=== PATIENT | male | born 1955 | race Caucasian/White ===

== ENCOUNTER → 2025-03-31 | Outpatient (CLI) | payer MEDICARE, SELFPAY ==
--- NOTE | 2025-03-31 12:34 | MRI_ITS ---
PROCEDURE: SPINE CERVICAL (ROUTINE) 03/31/2025 REASON FOR EXAM: NECK PAIN TECHNIQUE: Multiplanar and multisequence images were obtained without IV contrast administration. FINDINGS: Vertebrae: Cervical vertebral body heights are preserved. Bone marrow signal is unremarkable. Alignment: Normal. No spondylolisthesis. Spinal Cord: Cervical spinal cord is of normal size and signal intensities. Short-segment syrinx measuring up to 4 mm in transverse thickness is noted between C5 and T1 (series 6 image 10). Structures at the foramen magnum are unremarkable. C2-3: Canal and foramina are patent. C3-4: Mild bilateral uncinate hypertrophy, without canal stenosis or neural foraminal narrowing. C4-5: Small disc osteophyte complex, uncinate hypertrophy and mild facet degenerative changes without significant canal stenosis. Neural foramina are patent. C5-6: [id number]-left disc osteophyte complex, small disc osteophyte complex and facet degenerative changes with mild canal stenosis. Moderate right and mild left neural foraminal narrowing. C6-7: Small disc osteophyte complex, left greater than right uncinate hypertrophy and facet degenerative changes. No significant canal stenosis. Moderate bilateral neural foraminal narrowing. C7-T1: Canal and foramina are patent. MRI/Spine Cervical (Routine) IMPRESSION: 1. Multilevel degenerative changes of the cervical spine, with up to mild canal stenosis and moderate neural foraminal narrowing at C5-C6. 2. 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 Reading Location: [facility]
== END | disposition home or self-care (01) ==
LOC: MRI 12:30
PROVIDERS: Referring Provider Orthopaedic Surgery Orthopaedic Surgery of the Spine; Visit Provider Orthopaedic Surgery Orthopaedic Surgery of the Spine
DX: M54.2 Cervicalgia (principal)
CPT/HCPCS: 72141

== ENCOUNTER → 2025-05-30 | Outpatient (CLI) | payer MEDICARE, SELFPAY ==
--- OUTSIDE RECORDS SUMMARY | 2025-05-30 07:00 | XMS RPT_ITS | CCD ---
Author Organization [facility] Care Team Providers Care Oven Unloader Name Role Phone LENARD ALVARADO, ROSA Trejo Primary Care Physician [phone] THIAGO LOPEZ DO Primary Care Physician Dr. Ruth Ann Jones Attending UnavailDr. Thiago Puentes Primary Care Unava ilable JOHN ABERNATHY, THIAGO E Primary Care Unavailable BRIDGET PAGAN Attending Unavailable LOPEZ DO, THIAGO E Primary Care Unavailable JOVANA LONG TERM-TYPE CUTTERKARLA Attending Unav irene LOBATO APRN-CARLTON RIVERA Attending Unavailabl e LOPEZ DO, THIAGO E Primary Care Unavailable LOPEZ DO, THIAGO E Primary Care Unavailable LOPEZ DO, THIAGO E Attending Unavailable LOPEZ DO, THIAGO E Primary Care Unavailable JOVANA LONG TERM-TYPE CUTTERKARLA Attending Unav elinorable JOHN ABERNATHY THIAGO Uriel Primary Care Unavailable FRANTZ JESSICA DO Attending Unavailable LOPEZ DO, THIAGO E Attending Unavailable LOPEZ DO, THIAGO E Primary Care Unavailable LOPEZ DO, THIAGO E Primary Care Unavailable FRANTZ JESSICA DO Attending Unavailable LOPEZ DO, THIAGO E Primary Care Unavailable ABEBA CORRAL Attending Unavailable LOPEZ DO, THIAGO E Primary Care Unavailable DR MORTEZA CARBONE MD Attending Unavailabl e LOPEZ DO, THIAGO E Attending Unavailable LOPEZ DO, THIAGO E Primary Care Unavailable HONEY LONG TERM - TYPE CUTTERRICH Attending U navailable THIAGO LOPEZ DO Primary Care Unavailable RUTH ANN JONES MD Attending Unavailable LOPEZ DO, THIAGO E Primary Care Unavailable LOPEZ DO, THIAGO E Primary Care Unavailable JOVANANAZARIO COLE-TYPE CUTTERKARLA Attending Unav RUTH ANN Ortega MD Attending Unavailable LOPEZ DO, THIAGO E Primary Care Unavailable LOPEZ DO, THIAGO E Primary Care Unavailable FRANTZ JESSICA DO Attending Unavailable LOPEZ DO, THIAGO E Primary Care Unavailable JOVANAKARLA HOLLIDAY Attending Unav ailable LOPEZ DO, THIAGO E Primary Care Unavailable KARLA EVANS Attending Unav ailable LOPEZ DO, THIAGO E Primary Care Unavailable DR DARCY SPEARS MD Attending Unavaila ble LOPEZ DO, THIAGO E Primary Care Unavailable LOPEZ DO, THIAGO E Attending Unavailable LOPEZ DO, THIAGO E Attending Unavailable LOEPZ DO, THIAGO E Primary Care Unavailable LOPEZ DO, THIAGO E Primary Care Unavailable LYNETTE ALVARADO, RUTH ANN Attending Unavailable KARLA EVANS Attending Unav ailable LOPEZ DO, THIAGO E Primary Care Unavailable LOPEZ DO, THIAGO E Primary Care Unavailable RUTH ANN JONES MD Attending Unavailable LOPEZ DO, THIAGO E Primary Care Unavailable KARLA WHALEY Attending Unavailable John, Thiago Primary Care Unavailable Thiago Lopez Referring Unavailable Navjot Del Valle Attending Unavailable John, Thiago Primary Care Unavailable Matt Klein Attending Unavailable Navjot Del Valle Referring Unavailable Thiago Lopez Primary Care Unavailable Navjot Del Valle Attending Unavailable Thiago Lopez Primary Care Unavailable Thiago Lopez Referring Unavailable Navjot Del Valle Attending Unavailable Allergies Allergy Classification Reported Allergen(s) Allergy Type Date of Onset Reaction(s) Facility (20 sources) Hmg-Coa Reductase Inhibitors (Statins); Translations: [statins] Drug allergy Measurement of liver enzyme (procedure) [facility] (2 sources) Metoprolol; Translations: [metoprolol] Drug Allergy Flushing (disorder) [facility] (8 sources) Ciprofloxacin; Translations: [ciprofloxacin] Drug Allergy Unknown (qualifier value) [facility] (1 source) [id number]-Nqm Reductase Inhibitor Drug allergy (disorder) [address] [place] [address] Repository Medications Current Medications Medication Drug Class(es) Dates Sig (Normalized) Sig (Original) acetaminophen 500 mg / diphenhydrAMINE hydrochloride 25 mg oral tablet (2 sources) Histamine-1 Receptor Antagonist Start: 01-26-2024 take 1 tablet by mouth once daily at bedtime Tylenol PM Extra Strength oral tablet Dose = 2 tab(s), Oral, qHS, 0 Refill(s) Start Date: 01/26/24 Status: Ordered Repeat number: 1 Acidophilus Probiotic Blend (2 sources) Start: 10-06-2020 take 1 capsule by mouth once daily Acidophilus Probiotic Blend Dose = 1 cap(s), Oral, qDay, 0 Refill(s) Start Date: 10/06/20 Status: Ordered ALPRAZolam 0.25 mg oral tablet (1 source) Benzodiazepine Start: 06-06-2023 End: 07-06-2023 Xanax 0.25 mg oral tablet Dose : 0.25 mg = 1 tab(s), Oral, qDay, X 30 day(s), # 16 tab(s), 0 Refill(s), 07/06/23 12:04:00 EDT, Pharmacy: [facility]/pharmacy #[id number], Generalized anxiety disorder with panic attacks Reactive hypertension, 177.8, cm, 06/06/23 11:33:00 EDT, Height, 89.3 Start Date: 06/06/23 Stop Date: 07/06/23 Status: Ordered aspirin 81 mg delayed release oral tablet (4 sources) Platelet Aggregation Inhibitor, Nonsteroidal Anti-inflammatory Drug Start: 09-01-2023 aspirin 81 mg oral delayed release tablet Dose : 81 mg = 1 tab(s), Oral, Daily, # 30 tab(s), 0 Refill(s), Pharmacy: [facility]/pharmacy #[id number], 177.8, cm, 09/01/23 10:30:00 EDT, Height, kg, 09/01/23 10:30:00 EDT, Dosing Weight Start Date: 09/01/23 Status: Ordered ciprofloxacin 250 mg oral tablet (2 sources) Quinolone Antimicrobial Start: 11-21-2021 End: 01-20-2022 Cipro 250 mg oral tablet Dose : 250 mg = 1 tab(s), Oral, qDay, # 30 tab(s), 1 Refill(s), 98.4 Start Date: 11/21/21 Stop Date: 01/20/22 Status: Ordered Co-Q10 50 mg oral capsule (7 sources) Start: 10-06-2020 Co-Q10 50 mg oral capsule Dose : 50 mg = 1 cap(s), Oral, Daily, 0 Refill(s) Start Date: 10/06/20 Status: Ordered CoQ10 100 mg oral capsule (3 sources) Start: 12-10-2024 CoQ10 100 mg oral capsule 0 Refill(s) Start Date: 12/10/24 Status: Ordered Repeat number: 1 CoQ10 300 mg oral capsule (5 sources) Start: 07-18-2023 CoQ10 300 mg oral capsule Dose : 300 mg = 1 cap(s), Oral, qDay, ok for softgel / gummy if capsule not available, # 100 cap(s), 0 Refill(s), Pharmacy: [facility]/pharmacy #[id number], Reactive hypertension, 177.7, cm, 07/18/23 11:45:00 EDT, Height, kg, 07/18/23 11:45:00 EDT, Dosing Weight Start Date: 07/18/23 Status: Ordered daridorexant 50 MG Oral Tablet [Quviviq] (3 sources) Start: 09-10-2023 Quviviq 50 mg oral tablet Dose : 50 mg = 1 tab(s), Oral, qDay, # 30 tab(s), 0 Refill(s), Insomnia Start Date: 09/10/23 Status: Ordered diphenhydrAMINE hydrochloride 25 mg oral capsule (1 source) Histamine-1 Receptor Antagonist Start: 01-26-2024 Benadryl 25 mg oral capsule Dose : 25 mg = 1 cap(s), Oral, q6hr, 0 Refill(s) Start Date: 01/26/24 Status: Ordered Drenamin (1 source) Start: 07-25-2023 Drenamin 0 Refill(s) Start Date: 07/25/23 Status: Ordered escitalopram 5 mg oral tablet (1 source) Serotonin Reuptake Inhibitor Start: 06-09-2023 escitalopram 5 mg oral tablet Dose : 5 mg = 1 tab(s), Oral, qDay, # 30 tab(s), 0 Refill(s) Start Date: 06/09/23 Status: Ordered 1 ml evolocumab 140 mg/ml auto-injector (10 sources) PCSK9 Inhibitor Start: 03-05-2024 inject 1 dose by subcutaneous injection every other week Repatha SureClick 140 mg/mL subcutaneous solution Dose : 140 mg =, Subcutaneous, q2wk, rotate injection sites, # 2 EA, 11 Refill(s), Pharmacy: [facility]/pharmacy #[id number], 175.26, cm, 01/26/24 7:37:00 EST, Height, kg, 03/05/24 11:04:00 EDT, Dosing Weight Start Date: 03/05/24 Status: Ordered Quantity: 2.0 Unit: EA Repeat number: 12 Start: 11-14-2023 inject 1 mg by subcu taneous injection every other week Repatha 140 mg/mL subcutaneous solution mg =, Subcutaneous, q2wk, 0 Refill(s) Start Date: 11/14/23 Status: Ordered Start: 09-05-2023 inject 1 dose by sub cutaneous injection every other week Repatha SureClick 140 mg/mL subcutaneous solution Dose : 140 mg =, Subcutaneous, q2wk, rotate injection sites, # 3 mL, 3 Refill(s), Pharmacy: [facility], 177.8, cm, 09/01/23 10:30:00 EDT, Height, kg, 09/01/23 10:30:00 EDT, Dosing Weight Start Date: 09/05/23 Status: Ordered Start: 09-01-2023 inject 1 dose by sub cutaneous injection every other week Repatha SureClick 140 mg/mL subcutaneous solution Dose : 140 mg =, Subcutaneous, q2wk, rotate injection sites, # 6 EA, 11 Refill(s), [id number], 177.8, cm, 09/01/23 10:30:00 EDT, Height, kg, 09/01/23 10:30:00 EDT, Dosing Weight Start Date: 09/01/23 Status: Ordered ezetimibe 10 mg oral tablet (14 sources) Dietary Cholesterol Absorption Inhibitor Start: 09-03-2024 Zetia 10 mg oral ta blet Dose : 10 mg = 1 tab(s), Oral, qDay, # 30 tab(s), 11 Refill(s), Pharmacy: [facility]/pharmacy #[id number], 175, cm, 09/03/24 11:02:00 EDT, Height, kg, 09/03/24 11:02:00 EDT, Dosing Weight Start Date: 09/03/24 Status: Ordered Quantity: 30.0 Unit: tab(s) Repeat number: 12 Start: 05-19-2023 Zetia 10 mg or al tablet Dose : 10 mg = 1 tab(s), Oral, qDay, # 90 tab(s), 1 Refill(s), [id number], 176, cm, 05/15/23 11:12:00 EDT, Height, kg, 05/15/23 11:12:00 EDT, Dosing Weight Start Date: 05/19/23 Status: Ordered Start: 10-11-2022 Zetia 10 mg or al tablet Dose : 10 mg = 1 tab(s), Oral, qDay, # 90 tab(s), 1 Refill(s), [id number], 177.8, cm, 10/11/22 10:54:00 EST, Height, kg, 10/11/22 10:54:00 EST, Dosing Weight Start Date: 10/11/22 Status: Ordered Start: 08-09-2021 Zetia 10 mg or al tablet Dose : 10 mg = 1 tab(s), Oral, qDay, # 90 tab(s), 3 Refill(s), [id number], 177, cm, 07/24/21 9:55:00 EDT, Height, kg, 07/24/21 9:55:00 EDT, Dosing Weight Start Date: 08/09/21 Status: Ordered Fish Oils (2 sources) Start: 10-06-2020 Fish Oil 1000 mg oral capsule Dose : 1,000 mg = 1 cap(s), Oral, qDay, # 90 cap(s), 0 Refill(s) Start Date: 10/06/20 Status: Ordered gabapentin 100 mg oral capsule (11 sources) Anti-epileptic Agent Start: 11-14-2023 gabapentin 100 mg or al capsule Dose : 200 mg = 2 cap(s), Oral, qHS, # 60 cap(s), 0 Refill(s), 83.3 Start Date: 11/14/23 Status: Ordered Start: 08-28-2023 End: 10-10-2023 gabapentin 300 mg oral capsu le Dose : 300 mg = 1 cap(s), Oral, BID, # 60 cap(s), 0 Refill(s), Pharmacy: [facility]/pharmacy #[id number], Neuropathy, 177.8, cm, 08/27/23 12:41:00 EDT, Height, 83.9, kg, 08/27/23 12:41:00 EDT, Dosing Weight Start Date: 08/28/23 Stop Date: 10/10/23 Status: Ordered Start: 07-18-2023 End: 08-17-2023 gabapentin 300 mg oral capsu le Dose : 300 mg = 1 cap(s), Oral, qHS, # 30 cap(s), 0 Refill(s), [id number], Pins and needles sensation, 177.7, cm, 07/18/23 11:45:00 EDT, Height, 86.9, kg, 07/18/23 11:45:00 EDT, Dosing Weight Start Date: 07/18/23 Stop Date: 08/17/23 Status: Ordered Start: 06-13-2023 gabapentin 100 mg oral capsule See Instructions, Take 1 capsule 2 hours before bedtime. May increase by 1 capsule every 3 days to MAX of 3 capsules nightly, # 90 cap(s), 0 Refill(s), [id number], Pins and needles sensation, 177.8, cm, 06/13/23 14:13:00 EDT, Height, 91.2 Start Date: 06/13/23 Status: Ordered hydrOXYzine hydrochloride 25 mg oral tablet (7 sources) Antihistamine Start: 07-23-2023 hydrOXYzine hy drochloride 25 mg oral tablet Dose : 25 mg = 1 tab(s), Oral, TID, PRN as needed for anxiety, in lieu of pcp absence, # 90 tab(s), 0 Refill(s), [id number], Generalized anxiety disorder with panic attacks Sleep apnea, 177.7, cm, 07/18/23 11:45:00 EDT, Height, kg, 07/18/23 11:45:00 EDT, Dosing Weight Start Date: 07/23/23 Status: Ordered Start: 06-13-2023 hydrOXYzine hy drochloride 25 mg oral tablet Dose : 25 mg = 1 tab(s), Oral, TID, PRN as needed for anxiety, # 30 tab(s), 2 Refill(s), Pharmacy: [facility]/pharmacy #[id number], Generalized anxiety disorder with panic attacks Sleep apnea, 177.8, cm, 06/13/23 14:13:00 EDT, Height, kg, 06/13/23 14:13:00 EDT, Dosing Weight Start Date: 06/13/23 Status: Ordered Start: 06-09-2023 hydrOXYzine hy drochloride 25 mg oral tablet Dose : 25 mg = 1 tab(s), Oral, TID, # 30 tab(s), 0 Refill(s), Pharmacy: [facility]/pharmacy #[id number], Generalized anxiety disorder with panic attacks Sleep apnea, 177.8, cm, 06/09/23 16:17:00 EDT, Height Start Date: 06/09/23 Status: Ordered Ibuprofen (9 sources) Nonsteroidal Anti-inflammatory Drug Start: 10-06-2020 take 1 tablet by mouth once daily at bedtime Advil PM Dose = 2 tab(s), Oral, qHS, 0 Refill(s) Start Date: 10/06/20 Status: Ordered irbesartan 150 mg oral tablet (9 sources) Angiotensin 2 Receptor Lawson Start: 09-09-2024 irbesartan 150 mg oral tablet Dose : 150 mg = 1 tab(s), Oral, qDay, -, # 100 tab(s), 1 Refill(s), [id number], 174.8, cm, 12/10/24 9:04:00 EST, Height, kg, 12/10/24 9:04:00 EST, Dosing Weight Start Date: 12/10/24 Status: Ordered Quantity: 100.0 Unit: tab(s) Repeat number: 2 Start: 03-09-2024 irbesartan 150 mg oral tablet Dose : 150 mg = 1 tab(s), Oral, qDay, -, # 100 tab(s), 1 Refill(s), [id number], 175.26, cm, 01/26/24 7:37:00 EST, Height, kg, 03/09/24 14:50:00 EDT, Dosing Weight Start Date: 03/09/24 Status: Ordered Start: 12-12-2023 End: 01-11-2024 irbesartan 150 mg oral table t Dose : 150 mg = 1 tab(s), Oral, qDay, -, # 90 tab(s), 1 Refill(s), Pharmacy: [facility]/pharmacy #[id number], 177.8, cm, 11/18/23 12:26:00 EST, Height, kg, 11/18/23 12:26:00 EST, Dosing Weight Start Date: 12/12/23 Stop Date: 01/11/24 Status: Ordered Start: 11-14-2023 irbesartan 75 mg oral tablet Dose : 75 mg = 1 tab(s), Oral, qDay, # 30 tab(s), 0 Refill(s) Start Date: 11/14/23 Status: Ordered losartan potassium 25 mg oral tablet (2 sources) Angiotensin 2 Receptor Lawson Start: 05-24-2023 losartan 25 mg oral tablet Dose : 25 mg = 1 tab(s), Oral, qDay, replace metoprolol, # 30 tab(s), 0 Refill(s), Pharmacy: [facility]/pharmacy #[id number], 177, cm, 05/24/23 8:25:00 EDT, Height Start Date: 05/24/23 Status: Ordered magnesium glycinate 100 mg oral tablet (4 sources) Start: 12-10-2024 magnesium glyc inate 100 mg oral capsule Dose : 200 mg = 2 cap(s), Oral, qDay, # 60 cap(s), 0 Refill(s) Start Date: 12/10/24 Status: Ordered Quantity: 60.0 Unit: cap(s) Repeat number: 1 Start: 09-10-2023 magnesium glyc inate 100 mg oral capsule Dose : 200 mg = 2 cap(s), Oral, qDay, # 60 cap(s), 0 Refill(s) Start Date: 09/10/23 Status: Ordered melatonin 3 mg oral tablet (4 sources) Start: 07-18-2023 melatonin 3 mg oral tablet Dose : 3 mg = 1 tab(s), Oral, qHS, 0 Refill(s), # 100 tab(s), 0 Refill(s), Pharmacy: [facility]/pharmacy #[id number], 177.7, cm, 07/18/23 11:45:00 EDT, Height, kg, 07/18/23 11:45:00 EDT, Dosing Weight Start Date: 07/18/23 Status: Ordered Start: 05-24-2023 melatonin 0 Re fill(s) Start Date: 05/24/23 Status: Ordered metoprolol tartrate 25 mg oral tablet (5 sources) beta-Adrenergic Lawson Start: 07-16-2023 Metopr olol Succinate ER 25 mg oral TABLET extended release Dose : 25 mg = 1 tab(s), Oral, qDay, # 90 tab(s), 0 Refill(s), Pharmacy: [facility]/pharmacy #[id number], 177.7, cm, 07/02/23 15:04:00 EDT, Height, kg, 07/10/23 11:32:00 EDT, Dosing Weight Start Date: 07/16/23 Status: Ordered Start: 06-30-2023 Metoprolol Suc cinate ER 25 mg oral TABLET extended release 30 EA, 0 Refill(s), TAKE 1 TABLET BY MOUTH EVERY DAY DO NOT CRUSH OR CHEW AFTER 7 DAYS MAY INCREASE TO 50MG, 0 Refill(s) Start Date: 06/30/23 Status: Ordered [facility] (11 sources) Start: 01-22-2022 Misc Medicatio n prostate ultra, 0 Refill(s), 96.2 Start Date: 01/22/22 Status: Ordered Start: 07-04-2021 Misc Medicatio n 0 Refill(s), 103.8 Start Date: 07/04/21 Status: Ordered Multi-Day Plus Minerals oral tablet (11 sources) Start: 10-06-2020 take 1 tablet by mouth once daily Multi-Day Plus Minerals oral tablet Dose = 1 tab(s), Oral, Daily, # 30 tab(s), 0 Refill(s) Start Date: 10/06/20 Status: Ordered nutritional supplement (3 sources) Start: 09-10-2023 nutritional supplement Prostate X, 0 Refill(s) Start Date: 09/10/23 Status: Ordered omeprazole 20 mg delayed release oral capsule (1 source) Proton Pump Inhibitor Start: 08-22-2023 omeprazole 20 mg oral delayed release capsule See Instructions, 20 mg Oral twice daily for 30 days, then once daily, # 90 cap(s), 0 Refill(s), Pharmacy: [facility]/pharmacy #[id number], 177.8, cm, 08/22/23 14:16:00 EDT, Height, kg, 08/22/23 14:16:00 EDT, Dosing Weight Start Date: 08/22/23 Status: Ordered One-A-Day Men 50 Plus (1 source) Start: 08-27-2023 take 1 tablet by mouth once daily One-A-Day Men 50 Plus Dose = 1 tab(s), Oral, qDay, 0 Refill(s) Start Date: 08/27/23 Status: Ordered Probiotic (7 sources) Start: 07-25-2023 Probiotic 0 Refill(s) Start Date: 07/25/23 Status: Ordered Start: 01-22-2022 Probiotic 0 Re fill(s) Start Date: 01/22/22 Status: Ordered sertraline 25 mg oral tablet (11 sources) Serotonin Reuptake Inhibitor Start: 01-20-2024 sertraline 25 mg ora l tablet Dose : 25 mg = 1 tab(s), Oral, qDay, # 90 tab(s), 0 Refill(s), Pharmacy: [facility]/pharmacy #[id number], 177.8, cm, 01/05/24 13:51:00 EST, Height, kg, 01/05/24 13:51:00 EST, Dosing Weight Start Date: 01/20/24 Status: Ordered Start: 11-14-2023 sertraline 50 mg oral tablet Dose : 25 mg = 0.5 tab(s), Oral, qDay, 0 Refill(s) Start Date: 11/14/23 Status: Ordered Start: 08-22-2023 sertraline 25 mg oral tablet Dose : 25 mg = 1 tab(s), Oral, qDay, TAKE 1 TABLET BY MOUTH EVERY DAY, # 90 tab(s), 0 Refill(s), Pharmacy: [facility]/pharmacy #[id number], 177.8, cm, 09/10/23 14:38:00 EDT, Height, kg, 09/10/23 14:38:00 EDT, Dosing Weight Start Date: 09/11/23 Status: Ordered sildenafil 25 mg oral tablet (11 sources) Phosphodiesterase 5 Inhibitor Start: 07-19-2023 sildenafil 25 mg oral tablet Dose : 25 mg = 1 tab(s), Oral, qDay, # 10 tab(s), 0 Refill(s), Pharmacy: [facility]/pharmacy #[id number], Erectile dysfunction, 177.7, cm, 07/18/23 11:45:00 EDT, Height, kg, 07/18/23 11:45:00 EDT, Dosing Weight Start Date: 07/19/23 Status: Ordered tamsulosin hydrochloride 0.4 mg oral capsule (15 sources) alpha-Adrenergic Lawson Start: 01-05-2025 tamsu losin 0.4 mg oral capsule Dose : 0.4 mg = 1 cap(s), Oral, qDay, # 90 cap(s), 3 Refill(s), [id number], BPH associated with nocturia, 177.8, cm, 01/05/25 14:03:00 EST, Height, kg, 01/05/25 14:03:00 EST, Dosing Weight Start Date: 01/05/25 Status: Ordered Quantity: 90.0 Unit: cap(s) Repeat number: 4 Indication: Benign prostatic hyperplasia with lower urinary tract symptoms Start: 01-05-2024 tamsulosin 0.4 mg oral capsule Dose : 0.4 mg = 1 cap(s), Oral, qDay, # 90 cap(s), 3 Refill(s), Pharmacy: [facility]/pharmacy #[id number], BPH (benign prostatic hyperplasia), 177.8, cm, 01/05/24 13:51:00 EST, Height, kg, 01/05/24 13:51:00 EST, Dosing Weight Start Date: 01/05/24 Status: Ordered Quantity: 90.0 Unit: cap(s) Repeat number: 4 Indication: Benign prostatic hyperplasia without lower urinary tract symptoms Start: 11-14-2023 tamsulosin 0.4 mg oral capsule Dose : 0.4 mg = 1 cap(s), Oral, qDay, # 30 cap(s), 0 Refill(s) Start Date: 11/14/23 Status: Ordered Start: 07-31-2023 Flomax 0.4 mg oral capsule Dose : 0.4 mg = 1 cap(s), Oral, qDay, # 90 cap(s), 3 Refill(s), Pharmacy: [facility]/pharmacy #[id number], BPH (benign prostatic hyperplasia), 177.8, cm, 07/31/23 9:13:00 EDT, Height, kg, 07/31/23 9:13:00 EDT, Dosing Weight Start Date: 07/31/23 Status: Ordered Start: 09-28-2021 tamsulosin 0.4 mg oral capsule 0 Refill(s) Start Date: 09/28/21 Status: Ordered traZODone hydrochloride 50 mg oral tablet (13 sources) Serotonin Reuptake Inhibitor Start: 01-20-2024 traZODone 50 mg oral tablet Dose : 50 mg = 1 tab(s), Oral, qHS, PRN Insomnia, # 30 tab(s), 0 Refill(s), [id number], 177.8, cm, 01/05/24 13:51:00 EST, Height, kg, 01/05/24 13:51:00 EST, Dosing Weight Start Date: 01/20/24 Status: Ordered Start: 09-23-2023 traZODone 100 mg oral tablet Dose : 50 mg = 0.5 tab(s), Oral, qHS, # 90 tab(s), 0 Refill(s) Start Date: 09/23/23 Status: Ordered Start: 09-15-2023 traZODone 50 m g oral tablet Dose : 100 mg = 2 tab(s), Oral, qHS, Call provider if dose adjustment (up or down) is needed., # 30 tab(s), 0 Refill(s), [id number], 177.8, cm, 09/10/23 14:38:00 EDT, Height, kg, 09/10/23 14:38:00 EDT, Dosing Weight Start Date: 09/15/23 Status: Ordered Start: 06-30-2023 traZODone 50 m g oral tablet Dose : 50 mg = 1 tab(s), Oral, qHS, PRN Sleep / Insomnia, # 90 tab(s), 0 Refill(s), [id number], Insomnia, 177.8, cm, 06/30/23 15:37:00 EDT, Height, kg, 06/30/23 15:37:00 EDT, Dosing Weight Start Date: 06/30/23 Status: Ordered ubidecarenone 50 mg oral capsule (4 sources) Start: 10-06-2020 Co-Q10 50 mg o ral capsule Dose : 50 mg = 1 cap(s), Oral, Daily, 0 Refill(s) Start Date: 10/06/20 Status: Ordered valsartan 80 mg oral tablet (4 sources) Angiotensin 2 Receptor Lawson Start: 08-27-2023 valsartan 80 mg oral tablet Dose : 80 mg = 1 tab(s), Oral, Daily, # 30 tab(s), 1 Refill(s), Pharmacy: [facility]/pharmacy #[id number], Reactive hypertension, 177.8, cm, 08/27/23 12:41:00 EDT, Height, kg, 08/27/23 12:41:00 EDT, Dosing Weight Start Date: 08/27/23 Status: Ordered Completed/Discontinued Medications Medication Drug Class(es) Dates Sig (Normalized) Sig (Original) LORazepam 0.5 mg oral tablet (10 sources) Benzodiazepine Start: 11-14-2023 LORazepam 0.5 mg oral tablet Dose : 0.5 mg = 1 tab(s), Oral, TID, PRN as needed for anxiety, 0 Refill(s), 83.1 Start Date: 11/14/23 Status: Ordered Start: 08-22-2023 End: 09-21-2023 LORazepam 0.5 mg oral tablet Dose : 0.5 mg = 1 tab(s), Oral, qDay, PRN as needed for anxiety, TAKE 1 TABLET BY MOUTH EVERY DAY NEEDED FOR ANXIETY. Cancel other Rx, X 30 day(s), # 24 tab(s), 0 Refill(s), 09/21/23 3:02:00 PM EDT, Pharmacy: [facility]/pharmacy #[id number], Anxiety, 177.8, cm, 08/22/23 14:16:00 EDT, Height, 84.8, kg, 08/22/23 14:16:00 EDT, Dosing Weight Start Date: 08/22/23 Stop Date: 09/21/23 Status: Ordered Start: 06-30-2023 LORazepam 0.5 mg oral tablet PLEASE SEE ATTACHED FOR DETAILED DIRECTIONS Start Date: 06/30/23 Status: Ordered Start: 05-27-2023 End: 06-06-2023 Ativan 0.5 mg oral tablet Do se : 0.5 mg = 1 tab(s), Oral, qHS, PRN as needed for anxiety, X 10 day(s), # 10 tab(s), 0 Refill(s), 06/06/23 4:50:00 EDT, Palpitations Anxiety, 92.7 Start Date: 05/27/23 Stop Date: 06/06/23 Status: Ordered One A Day Men's Complete (3 sources) Start: 12-10-2024 One A Day Men's Complete Oral, qDay, 0 Refill(s) Start Date: 12/10/24 Status: Ordered Repeat number: 1 sulfamethoxazole 400 mg / trimethoprim 80 mg oral tablet (6 sources) Dihydrofolate Reductase Inhibitor Antibacterial, Sulfonamide Antimicrobial Start: 07-31-2023 End: 08-07-2023 take 1 tablet by mouth twice daily Bactrim 400 mg-80 mg oral tablet Dose = 2 tab(s), Oral, BID, # 28 tab(s), 0 Refill(s), 87.3 Start Date: 07/31/23 Stop Date: 08/07/23 Status: Ordered Start: 07-21-2023 End: 07-29-2023 take 1 tablet by mouth twice daily Bactrim DS 800 mg-160 mg oral tablet Dose = 1 tab(s), Oral, BID, X 8 day(s), # 16 tab(s), 0 Refill(s), [id number], 177.7, cm, 07/18/23 11:45:00 EDT, Height, 86.9, kg, 07/18/23 11:45:00 EDT, Dosing Weight Start Date: 07/21/23 Stop Date: 07/29/23 Status: Ordered Start: 07-01-2023 End: 07-15-2023 take 1 tablet by mouth twice daily Bactrim DS 800 mg-160 mg oral tablet Dose = 1 tab(s), Oral, BID, X 14 day(s), # 28 tab(s), 0 Refill(s), Pharmacy: [facility]/pharmacy #[id number], 177.8, cm, 07/01/23 11:13:00 EDT, Height, 88.7, kg, 07/01/23 11:13:00 EDT, Dosing Weight Start Date: 07/01/23 Stop Date: 07/15/23 Status: Ordered Start: 01-01-2022 End: 01-15-2022 take 1 tablet by mouth twice daily Bactrim DS 800 mg-160 mg oral tablet Dose = 1 tab(s), Oral, BID, X 14 day(s), # 28 tab(s), 0 Refill(s), Pharmacy: [facility]/pharmacy #[id number], 177.8, cm, 01/01/22 10:05:00 EST, Height, 96.2, kg, 01/01/22 10:05:00 EST, Dosing Weight Start Date: 01/01/22 Stop Date: 01/15/22 Status: Ordered Start: 09-21-2021 End: 10-05-2021 take 1 tablet by mouth twice daily Bactrim DS 800 mg-160 mg oral tablet Dose = 1 tab(s), Oral, BID, X 14 day(s), # 28 tab(s), 0 Refill(s), Pharmacy: [facility]/pharmacy #[id number], 177, cm, 09/21/21 8:10:00 EDT, Height, 101.6, kg, 09/21/21 8:10:00 EDT, Dosing Weight Start Date: 09/21/21 Stop Date: 10/05/21 Status: Ordered Problems Active Problems Problem Classification Problem Date Documented Date Episodic/Chronic Anxiety disorders (20 sources) Anxiety disorder; Translations: [Anxiety disorder, unspecified] Onset: 05-27-20 Chronic Cardiac dysrhythmias (1 source) Palpitations; Translations: [Palpitations] Onset: 05-27-20 Episodic Conduction disorders (18 sources) Incomplete left bundle branch block 06-06-2023 Chronic Diabetes mellitus without complication (7 sources) Prediabetes 08-28-2023 Episodic Disorders of lipid metabolism (20 sources) Hyperlipidemia; Translations: [Familial hypercholesterolemia - heterozygous] Onset: 08-22-2012-21-2020 Chronic Essential hypertension (12 sources) Essential hypertension; Translations: [Essential (primary) hypertension] Onset: 05-27-2005-15-2023 Chronic Genitourinary symptoms and ill-defined conditions (20 sources) Urgent desire to urinate; Translations: [Dysuria] Onset: 11-14-2008-28-2023 Episodic Hemorrhoids (15 sources) Hemorrhoids 07-28-2023 Episodic Hyperplasia of prostate (8 sources) Benign prostatic hypertrophy without outflow obstruction 11-14-2023 Chronic Hypertension with complications and secondary hypertension (18 sources) Secondary hypertension 06-06-2023 Chronic Inflammatory conditions of male genital organs (20 sources) Chronic prostatitis 09-28-2021 Chronic Inflammatory conditions of male genital organs (16 sources) Prostatitis 01-02-2022 Episodic Other circulatory disease (2 sources) Elevated blood-pressure reading without diagnosis of hypertension 10-11-2022 Episodic Other gastrointestinal disorders (7 sources) Dysphagia 08-28-2023 Episodic Other gastrointestinal disorders (8 sources) Change in stool caliber 11-18-2023 Episodic Other male genital disorders (7 sources) History of prostatitis 12-19-2023 Episodic Other nervous system disorders (12 sources) Neuropathy 08-28-2023 Chronic Other nervous system disorders (18 sources) Pins and needles 06-06-2023 Episodic Other nervous system disorders (7 sources) Taste sense altered 08-28-2023 Episodic Other nutritional; endocrine; and metabolic disorders (9 sources) Overweight 08-28-2023 Episodic Other nutritional; endocrine; and metabolic disorders (9 sources) Overweight in adulthood with body mass index of 25 or more but less than 30 08-28-2023 Episodic Other screening for suspected conditions (not mental disorders or infectious disease) (12 sources) Computed tomography result abnormal 08-27-2023 Chronic Residual codes; unclassified (9 sources) Sleep apnea 12-21-2020 Chronic Residual codes; unclassified (1 source) Obstructive sleep apnea syndrome 06-13-2023 Chronic Residual codes; unclassified (17 sources) Insomnia 06-30-2023 Episodic Spondylosis; intervertebral disc disorders; other back problems (1 source) Cervicalgia; Translations: [Cervicalgia] Onset: 04-06-20 Episodic Unclassified (4 sources) Patient encounter status 10-11-2022 Unclassified (20 sources) Statin not tolerated (context-dependent category) 10-11-2022 Unclassified (1 source) Low back pain, unspecified; Translations: [Low back pain, unspecified] Onset: 03-17-20 Urinary tract infections (1 source) Escherichia coli urinary tract infection 11-18-2023 Episodic Past or Other Problems Problem Classification Problem Date Documented Da te Episodic/Chronic Abdominal pain (2 sources) Unspecified abdominal pain; Translations: [Unspecified abdominal pain] Onset: 07-26-2023 Episodic Results Test Name Value Interpretation Reference Range Facility Orthopedic Visit Reporton Orthopedic Visit Report [facility] [address] [place] [address] OFFICE VISIT Date of Service: 04/19/25 MR#: [id number] Acct: [id number] Name: RICH PERALES #: [id number] : 1955 Provider: Dr. Navjot Del Valle MD Age/Sex: 70/M Location: [facility] [place].MARIA GUADALUPE Status: Signed Intake Vital Signs 03/17/25 09:38 Height 5 ft 10 in Weight: 185 lb 8 oz BMI 26.6 Intake Visit Reasons: CERVICAL SPINE Chief Complaint: MRI Review Accompanied by: Self Is patient in pain?: Yes Pain scale (1-10): 2 Allergies Ldklesk-TLU-TmT Reductase Inhibitor Allergy (Verified 04/19/25 08:36) Liver eznymes were bad Medications ???Medication ???Instructions ???Recorded ???Confirmed ???Type evolocumab 140 mg/mL subcutaneous 140 mg subcut QWEEK 03/17/2504/01 History pen injector (Letty Henderson) irbesartan 150 mg tablet 150 mg PO QDAY 03/17/25 04/19/25 H istory tamsulosin 0.4 mg capsule 0.4 mg PO QDAY 03/17/25 04/19/25 H istory Have you fallen in the past year?: No PFSH Medical History High calcium levels High cholesterol Hypertension Surgical History History of tonsillectomy Family History Father History of heart bypass surgery Heart valve replaced Bladder cancer Family history of high cholesterol Mother Arthritis Social History Smoking Status: Former smoker Smokeless tobacco user: chewing tobacco alcohol intake: current alcohol intake frequency: a few times a week what type of physical activity do you participate in: walking and weight training HPI CERVICAL SPINE Details: This documentation accurately reflects the service provided and the decisions made by me, Dr. Navjot Del Valle MD 04/19/2533. Part of today???s visit was documented by Ame Grace [employer], acting as scribe. RICH PERALES is a 70 year old M here today for cervical spine MRI review. Patient rates his pain a 2/10 today. Patient denies any injections or treatment since the last visit. Patient states the cervical spine pain has stayed the same since the last visit. Has been more active lately and feels like the lumbar spine is bothering him more lately. He thinks the cervical spine range of motion is getting better. He thinks the shoulder pain is getting a little worse. Denies any recent falls or injuries. 03/17/2025: RICH PERALES is a 69 year old M here today for low back/neck pain. He states that he was previously seeing Dr. Pagan for his low back but his neck has been bothering him more lately. He has been having neck pain for about 2 years now. He gets intermittent pain in the neck that is sometime associated with how he moves his neck. He does get pain that radiates into his shoulders bilaterally. He denies having arm pain. He does get numbness and tingling in his hands but he does have carpal tunnel in both hands. He does have some balance problems but he notes that it isn't severe. he does have some weakness in his legs and is able to walk for 2-3 miles before he has to take a break. He states that walking actually makes his legs feel better. Patient is very active as goes to the gym regularly to use the exercise machines. Patient denies recent imaging of his cervical spine. He denies injection in the neck or low back. He denies PT for his cervical spine. Patient is also an avid [place]. Dr. Pagan was seeing him for his lumbar spine and has suspected stenosis. He did do physical therapy for his lumbar spine but doesn't feel that it was much help as he was doing the same things in the gym. It was recommended that he get an MRI of his lumbar spine that was denied due to no PT. He then did the PT and had the MRI and went to f/u with Dr. Pagan to go over the resuklts and that is when he found out he was no longer there. 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 Sometimes he takes an Aleve and the pain seems to wear off a little bit. The pain goes to the thigh and has lower pain in the calfs in both legs. There is more pain on the right side. Patient states that walking makes the pain feel better. When he sits for a long period of time he gets severe back pain. I examined the patient today. Patient states that he loses balance a little bit. He loses his balance when he just stands up. Patient denies any dizziness. Patient denies any diabetes. He does take cholesterol medication for cholesterol issues. Patient gets numbness and tingling in the legs. Patient states that he sometimes drops stuff from his hands. He was having trouble with writing and tying his shoes about 5 years ago, but it was getting better. Ortho Exam General General: Yes no acute distress (more content not included)... Normal [facility] Spine Cervical (Routine)on 0 03-31-2025 Spine Cervical (Routine) [facility] [address] [place] [address] Spine Cervical (Routine) MR#: [id number] Acct: [id number] Name: RICH PERALES Rep #: [id number] : 1955 M 69 From: Eliezer iqbal MD PCP: Dr. Thiago Lopez, DO Status: REG CLI Study: Spine Cervical (Routine) Date of Exam: Exam# [id number] Ordering Dr: Navjot Del Valle MD PROCEDURE: SPINE CERVICAL (ROUTINE) 03/31/2025 REASON FOR EXAM: NECK PAIN TECHNIQUE: Multiplanar and multisequence images were obtained without IV contrast administration. FINDINGS: Vertebrae: Cervical vertebral body heights are preserved. Bone marrow signal is unremarkable. Alignment: Normal. No spondylolisthesis. Spinal Cord: Cervical spinal cord is of normal size and signal intensities. Short-segment syrinx measuring up to 4 mm in transverse thickness is noted between C5 and T1 (series 6 image 10). Structures at the foramen magnum are unremarkable. C2-3: Canal and foramina are patent. C3-4: Mild bilateral uncinate hypertrophy, without canal stenosis or neural foraminal narrowing. C4-5: Small disc osteophyte complex, uncinate hypertrophy and mild facet degenerative changes without significant canal stenosis. Neural foramina are patent. C5-6: Ujzac-nqqpwqm-oxlm-left disc osteophyte complex, small disc osteophyte complex and facet degenerative changes with mild canal stenosis. Moderate right and mild left neural foraminal narrowing. C6-7: Small disc osteophyte complex, left greater than right uncinate hypertrophy and facet degenerative changes. No significant canal stenosis. Moderate bilateral neural foraminal narrowing. C7-T1: Canal and foramina are patent. MRI/Spine Cervical (Routine) IMPRESSION: 1. Multilevel degenerative changes of the cervical spine, with up to mild canal stenosis and moderate neural foraminal narrowing at C5-C6. 2. 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 Reading Location: [facility] CC: Dr. Navjot Del Valle MD; Dr. Thiago Lopez DO [employer] Senior Specialist: Signed Normal [facility] Cerv Spine 4 or 5 Viewson Cerv Spine 4 or 5 Views [facility] [address] [place] [address] Cerv Spine 4 or 5 Views MR#: [id number] Acct: [id number] Name: RICH PERALES Rep #: [id number] : 1955 M 69 From: Adolfo camargo MD PCP: Dr. Thiago Lopez DO Status: DEP AMB Study: Cerv Spine 4 or 5 Views Date of Exam: 03/17/25 Exam# [id number] Ordering Dr: Kristy Alston PROCEDURE: CERV SPINE 4 OR 5 VIEWS 03/17/2025 REASON FOR EXAM: CHRONIC PAIN TECHNIQUE: 4 views of the cervical spine were obtained including flexion-extension views. COMPARISON: None FINDINGS: Vertebrae: Spondylosis. disc spaces: Marked degree of disc space narrowing and spondylosis at the C5-C6 and C6-C7 levels. Facet joint osteoarthritis. Alignment: Minimal degree of anterior listhesis of C4 on C5 on the flexion movement. soft tissues: Unremarkable Other: RAD/Cerv Spine 4 or 5 Views IMPRESSION: MODERATE CERVICAL DEGENERATIVE CHANGES. Minimal anterior listhesis of C4 on C5 on the flexion maneuver. Disclaimer: Reading Location: [facility] CC: ABDIEL Doe; Dr. Thiago Lopez DO [employer] Senior Specialist: Signed Normal [facility] L/S Spine Min 4 Viewson 03-01 L/S Spine Min 4 Views [facility] [address] [place] [address] L/S Spine Min 4 Views MR#: [id number] Acct: [id number] Name: RICH PERALES Rep #: [id number] : 1955 M 69 From: Adolfo camargo MD PCP: Dr. Thiago Lopez DO Status: DEP AMB Study: L/S Spine Min 4 Views Date of Exam: 03/17/25 Exam# [id number] Ordering Dr: Navjot Del Valle MD PROCEDURE: L/S SPINE MIN 4 VIEWS 03/17/2025 REASON FOR EXAM: CHRONIC PAIN TECHNIQUE: AP lateral and flexion-extension views of the lumbar spine were obtained. COMPARISON: None FINDINGS: Curvature: Mild dextroscoliosis. Other findings: Marked degree of disc space narrowing and spondylosis at the L4-L5 level. Mild degree of disc space narrowing at the L3-L4 levels. Minimal anterior listhesis of L4 on L5 most likely secondary to facet joint osteoarthritis. This is accentuated on the flexion views. Other: Large amount of fecal material is seen in the colon. RAD/L/S Spine Min 4 Views IMPRESSION: Mild dextroscoliosis. Marked degree of disc space narrowing and spondylosis at the L4-L5 level with anterior listhesis of L4 on L5 worsening on the flexion views. Reading Location: [place] [address] CC: Dr. Navjot Del Valle MD; Dr. Thiago Lopez DO [employer] Senior Specialist: Signed Normal [facility] Orthopedic Visit Reporton Orthopedic Visit Report [facility] [facility] [address] [place] [address] OFFICE VISIT Date of Service: 03/17/25 MR#: [id number] Acct: [id number] Name: RICH PERALES Rep #: [id number] : 1955 Provider: Dr. Navjot Del Valle MD Age/Sex: 69/M Location: [facility] [place].MARIA GUADALUPE Status: Signed Intake Vital Signs 03/17/25 09:38 Height 5 ft 10 in Weight: 185 lb 8 oz BMI 26.6 Intake Visit Reasons: CERVICAL SPINE Allergies Zlxoxpe-LIQ-CyL Reductase Inhibitor Allergy (Verified 03/17/25 09:40) Liver eznymes were bad Medications ???Medication ???Instructions ???Recorded ???Confirmed ???Type evolocumab 140 mg/mL subcutaneous 140 mg subcut QWEEK 03/17/25/06/24 History pen injector (Letty Henderson) irbesartan 150 mg tablet 150 mg PO QDAY 03/17/25 03/17/25 H istory tamsulosin 0.4 mg capsule 0.4 mg PO QDAY 03/17/25 03/17/25 H istory Have you fallen in the past year?: No PFSH Medical History (Updated 03/17/25 @ 11:[address] Navjot Del Valle MD) High calcium levels High cholesterol Hypertension Surgical History (Updated 03/17/25 @ 09:58 by Yara Hankins) History of tonsillectomy Family History (Updated 03/17/25 @ 10:02 by Yara Hankins) Father History of heart bypass surgery Heart valve replaced Bladder cancer Family history of high cholesterol Mother Arthritis Social History (Updated 03/17/25 @ 09:58 by Yara Hankins) Smoking Status: Former smoker Smokeless tobacco user: chewing tobacco alcohol intake: current alcohol intake frequency: a few times a week what type of physical activity do you participate in: walking and weight training HPI CERVICAL SPINE Details: This documentation accurately reflects the service provided and the decisions made by me, Dr. Navjot Del Valle MD 03/17/25 0934. Part of today???s visit was documented by Hope SPARROW, acting as scribe. RICH PERALES is a 69 year old M here today for low back/neck pain. He states that he was previously seeing Dr. Pagan for his low back but his neck has been bothering him more lately. He has been having neck pain for about 2 years now. He gets intermittent pain in the neck that is sometime associated with how he moves his neck. He does get pain that radiates into his shoulders bilaterally. He denies having arm pain. He does get numbness and tingling in his hands but he does have carpal tunnel in both hands. He does have some balance problems but he notes that it isn't severe. he does have some weakness in his legs and is able to walk for 2-3 miles before he has to take a break. He states that walking actually makes his legs feel better. Patient is very active as goes to the gym regularly to use the exercise machines. Patient denies recent imaging of his cervical spine. He denies injection in the neck or low back. He denies PT for his cervical spine. Patient is also an avid [place]. Dr. Pagan was seeing him for his lumbar spine and has suspected stenosis. He did do physical therapy for his lumbar spine but doesn't feel that it was much help as he was doing the same things in the gym. It was recommended that he get an MRI of his lumbar spine that was denied due to no PT. He then did the PT and had the MRI and went to f/u with Dr. Pagan to go over the resuklts and that is when he found out he was no longer there. 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 Sometimes he takes an Aleve and the pain seems to wear off a little bit. The pain goes to the thigh and has lower pain in the calfs in both legs. There is more pain on the right side. Patient states that walking makes the pain feel better. When he sits for a long period of time he gets severe back pain. I examined the patient today. Patient states that he loses balance a little bit. He loses his balance when he just stands up. Patient denies any dizziness. Patient denies any diabetes. He does take cholesterol medication for cholesterol issues. Patient gets numbness and tingling in the legs. Patient states that he sometimes drops stuff from his hands. He was having trouble with writing and tying his shoes about 5 years ago, but it was getting better. Ortho Exam General General: Yes no acute distress Neurologic: Yes alert and Yes oriented x3 Spine SPINE TESTING CERVICAL THORACIC LUMBAR Musculoskeletal Strength 0=absent - 5=normal Details: Examination the back and neck show midline paraspinal tenderness. Neurologic evaluation of upper and lower extremity shows 5 x 5 power level shows normal sensations in all dermatomes. Greta's negative. Romberg's positive. Tandem gait shows mild imbalance. Left knee shows brisk reflexes. No clonus. Coding Level of Care Code Off vis,new,level 4 Diagnoses Other intervertebral disc degeneration, lumbar region with discogenic back pain and lower extr (more content not included)... Normal [facility] BD BONE DENSITY DEXA AXIAL S KELETONon 01-19-2025 BD BONE DENSITY DEXA AXIAL SKELETON ORIGINAL EXAMINATION: BONE DENSITOMETRY01/19/2025 11:43 am TECHNIQUE: Dual energy bone densitometry lumbar spine and left hip. COMPARISON: None HISTORY: Reason for Exam: Osteoporosis Screening FINDINGS: L1-L4: BMD= 1.228 g/cm2 T score= 1.2 Left femoral neck: BMD= 0.850 g/cm2 T score= -0.6 Left hip: BMD= 1.022 g/cm2 T score= -0.1 FRAX score: 10 year risk major osteoporotic fracture 4.9 %. 10 year risk hip fracture 0.6 %. The BHOF f/k/a NOF recommends that FDA-approved medical therapies be considered in post-menopausal women and men age >/= 50 years with a: * Hip or vertebral fracture, or * T-score of /= 20% for major osteoporotic fractures or * >/= 3% for hip fractures All treatment decisions require clinical judgement and consideration of individual patient factors, including patient preferences, comorbidities, previous drug use, risk factors not captured in the FRAX registered model (e.g., frailty, falls, vitamin D deficiency, increased bone turnover, interval significant decline in bone density) and possible under- or over-estimation of fracture risk by FRAX. IMPRESSION: Normal bone mineral density. Interpreted by: Ashley Chacon MD Preliminary Report By: Ashley Chacon MD Electronically signed By Ashley Chacon MD Dictated Date: 01/19/2025 12:10:27 PM Prelim Date: 01/19/2025 12:11:37 PM Sign Date: 01/19/2025 12:11:37 PM Ordering Provider: THIAGO Kam [facility] LABORATORYOrdered By: SYSTEM SYSTEM on 12-23-2024 Prostate specific Ag [Mass/Vol] 1.27 ng/mL Normal 0.00 - 4.00 ng/mL AO ADM SS PSAon 12-23-2024 Prostate Specific Antigen 1.27 ng/mL Normal 0.00-4.00 [facility] Comment on above: Performed By: #### P SA #### [address] [place] [place], [place] [address] LABORATORYOrdered By: Kiersten Fernandes on 12-09-2024 Cholesterol [Mass/Vol] 101 mg/dL Normal 0 - 200 mg/dL AO ADM SS Comment on above: Interpretive Data: C holesterol Reference Interval: Less than 200 Desirable 200-239 Borderline high risk 240 and above High risk Cholesterol in HDL [Mass/Vol] 50 mg/dL Normal 40 - 60 mg/dL AO ADM SS Cholesterol in LDL [Mass/Vol] 37 mg/dL Normal 0 - 130 mg/dL AO ADM SS Triglyceride [Mass/Vol] 68 mg/dL Normal 0 - 150 mg/dL AO ADM SS Comment on above: Interpretive Data: T riglyceride Reference Interval: Less than 150 Normal 150-199 Borderline high risk 200-499 High risk 500 or higher Very high risk LIPIDon 12-09-2024 Cholesterol [Mass/Vol] 101 mg/dL Normal 0-200 [facility] Comment on above: Result Comment: Chol esterol Reference Interval: Less than 200 Desirable 200-239 Borderline high risk 240 and above High risk Performed By: #### L IPID #### [address] [address] Cholesterol in HDL [Mass/Vol] 50 mg/dL Normal 40-60 [facility] Comment on above: Performed By: #### L IPID #### [address] [address] Cholesterol in LDL [Mass/Vol] 37 mg/dL Normal 0-130 [facility] Comment on above: Performed By: #### L IPID #### [address] [place], [place] [address] Triglyceride [Mass/Vol] 68 mg/dL Normal 0-150 [facility] Comment on above: Result Comment: Trig lyceride Reference Interval: Less than 150 Normal 150-199 Borderline high risk 200-499 High risk 500 or higher Very high risk Performed By: #### L IPID #### [address] [address] LIPIDon 07-01-2024 Cholesterol [Mass/Vol] 139 mg/dL Normal 0-200 [facility] Comment on above: Result Comment: Chol esterol Reference Interval: Less than 200 Desirable 200-239 Borderline high risk 240 and above High risk Performed By: #### L IPID #### [address] [address] Cholesterol in HDL [Mass/Vol] 52 mg/dL Normal 40-60 [facility] Comment on above: Performed By: #### L IPID #### [address] [address] Cholesterol in LDL [Mass/Vol] 74 mg/dL Normal 0-130 [facility] Comment on above: Performed By: #### L IPID #### [address] [address] Triglyceride [Mass/Vol] 67 mg/dL Normal 0-150 [facility] Comment on above: Result Comment: Trig lyceride Reference Interval: Less than 150 Normal 150-199 Borderline high risk 200-499 High risk 500 or higher Very high risk Performed By: #### L IPID #### [address] [address] Final Surgical Pathology Rep [facility] 01-28-2024 Final Surgical Pathology Report . Pathology Reports Accession: Collected Date/Time: Received Date/Time: Pathologist: [id number] 01/26/2024 08:47 EST 01/27/2024 08:48 MD RICH HICKEY Final Surgical Pathology Report DIAGNOSIS: A. COLON, HEPATIC FLEXURE, BIOPSY: - ULCERATED HYPERPLASTIC POLYP B. 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 Received in formalin labeled hepatic flexure polyp is 1 triangular filter labeled with the #1 containing 1 cuello-pink tissue fragment measuring 0.4 cm and fecal debris aggregating to 2.6 x 0.4 x 0.1 cm. TS-1 B. Received in formalin labeled rectal polyp is 1 cuello-pink tissue fragment measuring 0.8 x 0.6 cm. TS-1 Chary Waidman, [employer] Occupational Therapist/ Dr. Lucas Holland, Pathologist Dictated by Chary Willaimson MICROSCOPIC DESCRIPTION: The microscopic examination is performed, except in the case of Gross Only. Electronically Signed by Pathology Report verified by [facility] RICH QUIROS MD Sign out Date: 01/28/2024 09:08 Performing Lab: [facility], [address] [place] [address] Pathology Dept Disclaimer If ancillary studies were utilized, the following Laboratory Developed Test (LDT) disclaimer will apply: Under CLIA requirements, [facility] is qualified to perform high complexity testing. For all ancillary stains, positive and negative controls stain appropriately. Performance characteristics of immunohistochemical and chromogenic in-situ hybridization tests have been determined by [facility]. These tests are used for clinical purposes, They should not be regarded as investigational or for research. Normal [facility] ([place] PSAon 01-01-2024 Prostate Specific Antigen 0.93 ng/mL Normal 0.00-4.00 [facility] [place] Comment on above: Performed By: #### C MP, GFR, LIPID #### [address] [address] .Urinalysis Microscopic (AO) on 12-17-2023 UA RBC 0-5 Abnormal None Seen [facility] [place] Comment on above: Performed By: #### C RE, GFR #### [address] [address] UA Squam Epithelial 0-5 Abnormal None Seen [facility] ([place]) Comment on above: Performed By: #### C RE, GFR #### [address] [address] UA WBC 0-5 Abnormal None Seen [facility] [place] Comment on above: Performed By: #### C RE, GFR #### [address] [address] UAon 12-17-2023 Color (U) Yellow Normal [facility] [place] Comment on above: Performed By: #### C RE, GFR #### [address] [address] Glucose (U) [Mass/Vol] Negative Normal Negative [facility] [place] Comment on above: Performed By: #### C RE, GFR #### [facility] [address] [address] Ketones Ql (U) Negative Normal Negative [facility] [place] Comment on above: Performed By: #### C RE, GFR #### [address] [address] UA Appear Clear Normal Clear [facility] [place] Comment on above: Performed By: #### C RE, GFR #### [address] [address] UA Blood Negative Normal Negative [facility] [place] Comment on above: Performed By: #### C RE, GFR #### [address] [address] UA Leuk Est Negative Normal Negative [facility] [place] Comment on above: Performed By: #### C RE, GFR #### [address] [address] UA Nitrite Negative Normal Negative [facility] [place] Comment on above: Performed By: #### C RE, GFR #### [address] [address] UA pH 7.0 Normal 5.0 - 8.0 [facility] [place] Comment on above: Performed By: #### C RE, GFR #### [address] [address] UA Protein Negative Normal Negative [facility] [place] Comment on above: Performed By: #### C RE, GFR #### [address] [address] UA Spec Grav 1.015 Normal 1.015-1.025 [facility] [place] Comment on above: Performed By: #### C RE, GFR #### [place] [address] UA Specimen Type Void Normal [facility] [place] Comment on above: Performed By: #### C RE, GFR #### [address] [address] UA Urobilinogen 0.2 E.U./dL Normal 0.2-1.0 [facility] [place] Comment on above: Performed By: #### C RE, GFR #### [address] [address] Urobilinogen (U) [Mass/Vol] Negative Normal Negative [facility] [place] Comment on above: Performed By: #### C RE, GFR #### [address] [address] .Auto Diffon 12-16-2023 Basophil, Absolute 0.0 10 3/mcL Normal 0.0-0.2 [facility] ([place]) Comment on above: Performed By: #### C MP, GFR, LIPID #### [address] [address] Basophils/100 WBC (Bld) 0.5 % Normal 0.0-2.5 [facility] [place] Comment on above: Performed By: #### C MP, GFR, LIPID #### [address] [address] Eosinophil, Absolute 0.0 10 3/mcL Normal 0.0-0.4 [facility] ([place]) Comment on above: Performed By: #### C MP, GFR, LIPID #### [address] [address] Eosinophils/100 WBC (Bld) 0.6 % Normal 0.0-7.0 [facility] [place] Comment on above: Performed By: #### C MP, GFR, LIPID #### [address] [address] Lymphocyte, Absolute 1.3 10 3/mcL Normal 0.8-3.9 [facility] ([place] Comment on above: Performed By: #### C MP, GFR, LIPID #### [address] [address] Lymphocytes/100 WBC (Bld) 25.5 % Normal 10.0-50.0 [facility] [place] Comment on above: Performed By: #### C MP, GFR, LIPID #### [address] [address] Monocyte, Absolute 0.5 10 3/mcL Normal 0.2-1.0 [facility] ([place] Comment on above: Performed By: #### C MP, GFR, LIPID #### [address] [address] Monocytes/100 WBC (Bld) 10.5 % Normal 1.7-13.0 [facility] [place] Comment on above: Performed By: #### C MP, GFR, LIPID #### [address] [address] Neutrophils/100 WBC (Bld) 62.9 % Normal 37.0-80.0 [facility] [place] Comment on above: Performed By: #### C MP, GFR, LIPID #### [address] [address] .GFRon 12-16-2023 GFR 110 ml/min/1.73sqm Normal [facility] [place] Comment on above: Result Comment: GFR Population mean for , Non- Americans Ages 20-29 = 116 mL/min/1.73 sq.m. Ages 30-39 = 107 mL/min/1.73 sq.m. Ages 40-49 = 99 mL/min/1.73 sq.m. Ages 50-59 = 93 mL/min/1.73 sq.m. Ages 60-69 = 85 mL/min/1.73 sq.m. Ages 70+ = 75 mL/min/1.73 sq.m. Chronic Kidney Disease: Less than 60 mL/min/1.73 square meters End Stage Renal Disease: Less than 15 mL/min/1.73 square meters Performed By: #### C MP, GFR, LIPID #### [address] [address] GFR Non- 91 ml/min/1.73sqm Normal [facility] [place] Comment on above: Result Comment: GFR Population mean for , Non- Americans Ages 20-29 = 116 mL/min/1.73 sq.m. Ages 30-39 = 107 mL/min/1.73 sq.m. Ages 40-49 = 99 mL/min/1.73 sq.m. Ages 50-59 = 93 mL/min/1.73 sq.m. Ages 60-69 = 85 mL/min/1.73 sq.m. Ages 70+ = 75 mL/min/1.73 sq.m. Chronic Kidney Disease: Less than 60 mL/min/1.73 square meters End Stage Renal Disease: Less than 15 mL/min/1.73 square meters Performed By: #### C MP, GFR, LIPID #### [address] [address] .NEUABSon 12-16-2023 Neutrophil, Absolute 3.2 10 3/mcL Normal 2.9-6.2 [facility] ([place]) Comment on above: Performed By: #### C MP, GFR, LIPID #### [address] [address] CBCon 12-16-2023 Erythrocyte distribution width (RBC) [Ratio] 13.4 % Normal 11.5-14.5 [facility] [place] Comment on above: Performed By: #### C MP, GFR, LIPID #### [address] [address] Hematocrit (Bld) [Volume fraction] 42.6 % Normal 42.0-52.0 [facility] [place] Comment on above: Performed By: #### C MP, GFR, LIPID #### [address] [address] Hgb 14.4 G/dL Normal 14.0-18.0 [facility] [place] Comment on above: Performed By: #### C MP, GFR, LIPID #### [address] [address] MCH (RBC) [Entitic mass] 32.0 pg High 27.0-31.2 [facility] [place] Comment on above: Performed By: #### C MP, GFR, LIPID #### [address] [address] MCHC 33.8 G/dL Normal 31.8-35.4 [facility] [place] Comment on above: Performed By: #### C MP, GFR, LIPID #### [address] [address] MCV (RBC) [Entitic vol] 94.6 fL High 80.0-94.0 [facility] [place] Comment on above: Performed By: #### C MP, GFR, LIPID #### [address] [address] Platelet 179 10 3/mcL Normal 130-400 [facility] [place] Comment on above: Performed By: #### C MP, GFR, LIPID #### [address] [address] Platelet mean volume (Bld) [Entitic vol] 8.6 fL Normal 7.4-10.4 [facility] [place] Comment on above: Performed By: #### C MP, GFR, LIPID #### [address] [address] RBC 4.50 10 6/mcL Normal 4.04-6.13 [facility] [place] Comment on above: Performed By: #### C MP, GFR, LIPID #### [address] [address] WBC 5.1 10 3/mcL Normal 4.6-10.8 [facility] [place] Comment on above: Performed By: #### C MP, GFR, LIPID #### [address] [address] CMPon 12-16-2023 Albumin Level 3.7 G/dL Normal 3.4-4.8 [facility] [place] Comment on above: Performed By: #### C MP, GFR, LIPID #### [address] [address] Albumin/Globulin [Mass ratio] 1.3 {ratio} Normal 1.1-2.5 [facility] [place] Comment on above: Performed By: #### C MP, GFR, LIPID #### [address] [address] ALP [Catalytic activity/Vol] 72 U/L Normal 40-135 [facility] [place] Comment on above: Performed By: #### C MP, GFR, LIPID #### [address] [address] ALT [Catalytic activity/Vol] 42 U/L Normal 16-63 [facility] [place] Comment on above: Performed By: #### C MP, GFR, LIPID #### [address] [address] AST [Catalytic activity/Vol] 19 U/L Normal 10-40 [facility] [place] Comment on above: Performed By: #### C MP, GFR, LIPID #### [address] [address] Bili Total 0.4 mg/dL Normal 0.2-1.0 [facility] [place] Comment on above: Result Comment: Use of this assay is not recommended for patients undergoing treatment with eltrombopag due to the potential for falsely elevated results. Performed By: #### C MP, GFR, LIPID #### [address] [address] BUN/Creatinine Ratio 25 ratio Normal 7-27 [facility] ([place]) Comment on above: Performed By: #### C MP, GFR, LIPID #### [address] [address] Calcium [Mass/Vol] 9.0 mg/dL Normal 8.4-10.2 [facility] ([place]) Comment on above: Performed By: #### C MP, GFR, LIPID #### [address] [address] Chloride [Moles/Vol] 103 mmol/L Normal 98-107 [facility] ([place] Comment on above: Performed By: #### C MP, GFR, LIPID #### [address] [address] CO2 [Moles/Vol] 26 mmol/L Normal 23-31 [facility] [place] Comment on above: Performed By: #### C MP, GFR, LIPID #### [address] [address] Creatinine [Mass/Vol] 0.84 mg/dL Normal 0.70-1.30 [facility] [place] Comment on above: Performed By: #### C MP, GFR, LIPID #### [address] [address] Electrolyte Balance 10.0 mEq/L Normal 4.0-15.0 [facility] ([place]) Comment on above: Performed By: #### C MP, GFR, LIPID #### [address] [address] Globulin 2.9 G/dL Normal [facility] ([place] Comment on above: Performed By: #### C MP, GFR, LIPID #### [address] [address] Glucose [Mass/Vol] 114 mg/dL Normal 80-115 [facility] ([place]) Comment on above: Performed By: #### C MP, GFR, LIPID #### [address] [address] Potassium [Moles/Vol] 4.8 mmol/L Normal 3.5-5.1 [facility] [place] Comment on above: Performed By: #### C MP, GFR, LIPID #### [address] [address] Sodium [Moles/Vol] 139 mmol/L Normal 136-145 [facility] ([place]) Comment on above: Performed By: #### C MP, GFR, LIPID #### [address] [address] Total Protein 6.6 G/dL Normal 6.4-8.2 [facility] [place] Comment on above: Performed By: #### C MP, GFR, LIPID #### [address] [address] Urea nitrogen [Mass/Vol] 21 mg/dL High 7-18 [facility] ([place] Comment on above: Performed By: #### C MP, GFR, LIPID #### [place] [address] [place], [place] [address] LABORATORYOrdered By: SYSTEM SYSTEM on 12-16-2023 Albumin BCP dye [Mass/Vol] 3.7 G/dL Normal 3.4 - 4.8 G/dL AO ADM SS Albumin/Globulin [Mass ratio] 1.3 {ratio} Normal 1.1 - 2.5 ratio AO ADM SS ALP [Catalytic activity/Vol] 72 U/L Normal 40 - 135 U/L AO ADM SS ALT With P-5'-P [Catalytic activity/Vol] 42 U/L Normal 16 - 63 U/L AO ADM SS AST With P-5'-P [Catalytic activity/Vol] 19 U/L Normal 10 - 40 U/L AO ADM SS Basophil, Absolute 0.0 103/mcL Normal 0.0 - 0.2 10^3/mcL AO Workflow SS Basophils/100 WBC (Bld) 0.5 % Normal 0.0 - 2.5 % AO Workflow SS Bilirubin [Mass/Vol] 0.4 mg/dL Normal 0.2 - 1 .0 mg/dL AO ADM SS Comment on above: Interpretive Data: U se of this assay is not recommended for patients undergoing treatment with eltrombopag due to the potential for falsely elevated results. Calcium [Mass/Vol] 9.0 mg/dL Normal 8.4 - 10. 2 mg/dL AO ADM SS Chloride [Moles/Vol] 103 mmol/L Normal 98 - 10 7 mmol/L AO ADM SS CO2 [Moles/Vol] 26 mmol/L Normal 23 - 31 mmol/L AO ADM SS Creatinine [Mass/Vol] 0.84 mg/dL Normal 0.70 - 1.30 mg/dL AO ADM SS Electrolyte Balance 10.0 mEq/L Normal 4.0 - 15 .0 mEq/L AO ADM SS Eosinophil, Absolute 0.0 103/mcL Normal 0.0 - 0 .4 10^3/mcL AO Workflow SS Eosinophils/100 WBC (Bld) 0.6 % Normal 0.0 - 7.0 % AO Workflow SS Erythrocyte distribution width (RBC) [Ratio] 13.4 % Normal 11.5 - 14.5 % AO Workflow SS GFR/1.73 sq M.predicted among blacks MDRD (S/P/Bld) [Vol rate/Area] 110 ml/min/1.73sqm Invalid Interpretation Code AO Chemistry S Comment on above: Interpretive Data: GFR Population mean for , Non- Americans Ages 20-29 = 116 mL/min/1.73 sq.m. Ages 30-39 = 107 mL/min/1.73 sq.m. Ages 40-49 = 99 mL/min/1.73 sq.m. Ages 50-59 = 93 mL/min/1.73 sq.m. Ages 60-69 = 85 mL/min/1.73 sq.m. Ages 70+ = 75 mL/min/1.73 sq.m. Chronic Kidney Disease: Less than 60 mL/min/1.73 square meters End Stage Renal Disease: Less than 15 mL/min/1.73 square meters GFR/1.73 sq M.predicted among non-blacks MDRD (S/P/Bld) [Vol rate/Area] 91 ml/min/1.73sqm Invalid Interpretation Code AO Chemistry S Comment on above: Interpretive Data: GFR Population mean for , Non- Americans Ages 20-29 = 116 mL/min/1.73 sq.m. Ages 30-39 = 107 mL/min/1.73 sq.m. Ages 40-49 = 99 mL/min/1.73 sq.m. Ages 50-59 = 93 mL/min/1.73 sq.m. Ages 60-69 = 85 mL/min/1.73 sq.m. Ages 70+ = 75 mL/min/1.73 sq.m. Chronic Kidney Disease: Less than 60 mL/min/1.73 square meters End Stage Renal Disease: Less than 15 mL/min/1.73 square meters Globulin 2.9 G/dL Invalid Interpretation Code AO ADM SS Glucose [Mass/Vol] 114 mg/dL Normal 80 - 115 mg/dL AO ADM SS Hematocrit (Bld) [Volume fraction] 42.6 % Normal 42.0 - 52.0 % AO Workflow SS Hemoglobin (Bld) [Mass/Vol] 14.4 G/dL Normal 14.0 - 18.0 G/dL AO Workflow SS Lymphocyte, Absolute 1.3 103/mcL Normal 0.8 - 3 .9 10^3/mcL AO Workflow SS Lymphocytes/100 WBC (Bld) 25.5 % Normal 10.0 - 50.0 % AO Workflow SS MCH (RBC) [Entitic mass] 32.0 pg High 27.0 - 31.2 pg AO Workflow SS MCHC 33.8 G/dL Normal 31.8 - 35.4 G/dL AO Workflow SS MCV (RBC) [Entitic vol] 94.6 fL High 80.0 - 94.0 fL AO Workflow SS Monocyte, Absolute 0.5 103/mcL Normal 0.2 - 1.0 10^3/mcL AO Workflow SS Monocytes/100 WBC (Bld) 10.5 % Normal 1.7 - 13.0 % AO Workflow SS Neutrophil, Absolute 3.2 103/mcL Normal 2.9 - 6 .2 10^3/mcL AO Workflow SS Neutrophils/100 WBC (Bld) 62.9 % Normal 37.0 - 80.0 % AO Workflow SS Platelet mean volume (Bld) [Entitic vol] 8.6 fL Normal 7.4 - 10.4 fL AO Workflow SS Platelets (Bld) [#/Vol] 179 103/mcL Normal 130 - 400 10^3/mcL AO Workflow SS Potassium [Moles/Vol] 4.8 mmol/L Normal 3.5 - 5.1 mmol/L AO ADM SS Prostate specific Ag [Mass/Vol] 0.93 ng/mL Normal 0.00 - 4.00 ng/mL AO ADM SS Protein [Mass/Vol] 6.6 G/dL Normal 6.4 - 8.2 G/dL AO ADM SS RBC (Bld) [#/Vol] 4.50 106/mcL Normal 4.04 - 6.1 3 10^6/mcL AO Workflow SS Sodium [Moles/Vol] 139 mmol/L Normal 136 - 145 mmol/L AO ADM SS Urea nitrogen [Mass/Vol] 21 mg/dL High 7 - 18 mg/dL AO ADM SS Urea nitrogen/Creatinine [Mass ratio] 25 ratio Normal 7 - 27 ratio AO ADM SS WBC (Bld) [#/Vol] 5.1 103/mcL Normal 4.6 - 10.8 10^3/mcL AO Workflow SS PSAon 12-16-2023 Prostate Specific Antigen 0.93 ng/mL Normal 0.00-4.00 [facility] ([place]) Comment on above: Performed By: #### C MP, GFR, LIPID #### [facility] [address] [address] .GFRon 10-27-2023 GFR 95 ml/min/1.73sqm Normal [facility] ([place] Comment on above: Result Comment: GFR Population mean for , Non- Americans Ages 20-29 = 116 mL/min/1.73 sq.m. Ages 30-39 = 107 mL/min/1.73 sq.m. Ages 40-49 = 99 mL/min/1.73 sq.m. Ages 50-59 = 93 mL/min/1.73 sq.m. Ages 60-69 = 85 mL/min/1.73 sq.m. Ages 70+ = 75 mL/min/1.73 sq.m. Chronic Kidney Disease: Less than 60 mL/min/1.73 square meters End Stage Renal Disease: Less than 15 mL/min/1.73 square meters Performed By: #### C MP, GFR, LIPID #### [facility] [address] [address] GFR Non- 79 ml/min/1.73sqm Normal [facility] ([place] Comment on above: Result Comment: GFR Population mean for , Non- Americans Ages 20-29 = 116 mL/min/1.73 sq.m. Ages 30-39 = 107 mL/min/1.73 sq.m. Ages 40-49 = 99 mL/min/1.73 sq.m. Ages 50-59 = 93 mL/min/1.73 sq.m. Ages 60-69 = 85 mL/min/1.73 sq.m. Ages 70+ = 75 mL/min/1.73 sq.m. Chronic Kidney Disease: Less than 60 mL/min/1.73 square meters End Stage Renal Disease: Less than 15 mL/min/1.73 square meters Performed By: #### C MP, GFR, LIPID #### [facility] [place] [place], [place] [address] CMPon 10-27-2023 Albumin Level 3.7 G/dL Normal 3.4-4.8 [facility] [place] Comment on above: Performed By: #### C MP, GFR, LIPID #### [address] [address] Albumin/Globulin [Mass ratio] 1.3 {ratio} Normal 1.1-2.5 [facility] [place] Comment on above: Performed By: #### C MP, GFR, LIPID #### [address] [address] ALP [Catalytic activity/Vol] 70 U/L Normal 40-135 [facility] [place] Comment on above: Performed By: #### C MP, GFR, LIPID #### [place] [id number] ALT [Catalytic activity/Vol] 38 U/L Normal 16-63 [facility] [place] Comment on above: Performed By: #### C MP, GFR, LIPID #### [place] [id number] AST [Catalytic activity/Vol] 22 U/L Normal 10-40 [facility] [place] Comment on above: Performed By: #### C MP, GFR, LIPID #### [address] [address] Bili Total 0.8 mg/dL Normal 0.2-1.0 [facility] [place] Comment on above: Result Comment: Use of this assay is not recommended for patients undergoing treatment with eltrombopag due to the potential for falsely elevated results. Performed By: #### C MP, GFR, LIPID #### [address] [address] BUN/Creatinine Ratio 18 ratio Normal 7-27 [facility] ([place]) Comment on above: Performed By: #### C MP, GFR, LIPID #### [address] [address] Calcium [Mass/Vol] 9.0 mg/dL Normal 8.4-10.2 [facility] ([place]) Comment on above: Performed By: #### C MP, GFR, LIPID #### [place] [id number] Chloride [Moles/Vol] 104 mmol/L Normal 98-107 [facility] ([place] Comment on above: Performed By: #### C MP, GFR, LIPID #### [address] [address] CO2 [Moles/Vol] 29 mmol/L Normal 23-31 [facility] [place] Comment on above: Performed By: #### C MP, GFR, LIPID #### [address] [address] Creatinine [Mass/Vol] 0.95 mg/dL Normal 0.70-1.30 [facility] [place] Comment on above: Performed By: #### C MP, GFR, LIPID #### [address] [address] Electrolyte Balance 8.0 mEq/L Normal 4.0-15.0 [facility] ([place]) Comment on above: Performed By: #### C MP, GFR, LIPID #### [address] [address] Globulin 2.9 G/dL Normal [facility] [place] Comment on above: Performed By: #### C MP, GFR, LIPID #### [address] [address] Glucose [Mass/Vol] 97 mg/dL Normal 80-115 [facility] ([place]) Comment on above: Performed By: #### C MP, GFR, LIPID #### [address] [address] Potassium [Moles/Vol] 5.1 mmol/L Normal 3.5-5.1 [facility] [place] Comment on above: Performed By: #### C MP, GFR, LIPID #### [address] [address] Sodium [Moles/Vol] 141 mmol/L Normal 136-145 [facility] ([place] Comment on above: Performed By: #### C MP, GFR, LIPID #### [address] [address] Total Protein 6.6 G/dL Normal 6.4-8.2 [facility] [place] Comment on above: Performed By: #### C MP, GFR, LIPID #### [address] [address] Urea nitrogen [Mass/Vol] 17 mg/dL Normal 7-18 [facility] [place] Comment on above: Performed By: #### C MP, GFR, LIPID #### [address] [address] LIPIDon 10-27-2023 Cholesterol [Mass/Vol] 121 mg/dL Normal 0-200 [facility] [place] Comment on above: Result Comment: Chol esterol Reference Interval: Less than 200 Desirable 200-239 Borderline high risk 240 and above High risk Performed By: #### C MP, GFR, LIPID #### [address] [address] Cholesterol in HDL [Mass/Vol] 56 mg/dL Normal 40-60 [facility] [place] Comment on above: Performed By: #### C MP, GFR, LIPID #### [address] [address] Cholesterol in LDL [Mass/Vol] 57 mg/dL Normal 0-130 [facility] [place] Comment on above: Performed By: #### C MP, GFR, LIPID #### [address] [address] Triglyceride [Mass/Vol] 38 mg/dL Normal 0-150 [facility] [place] Comment on above: Result Comment: Trig lyceride Reference Interval: Less than 150 Normal 150-199 Borderline high risk 200-499 High risk 500 or higher Very high risk Performed By: #### C MP, GFR, LIPID #### [address] [address] MRI BRAIN W/ + W/O CONTRASTo n 09-21-2023 MRI BRAIN W/ + W/O CONTRAST ORIGINAL EXAMINATION: MRI OF THE BRAIN WITHOUT AND WITH CONTRAST 09/15/2023 4:46 pm TECHNIQUE: Multiplanar multisequence MRI of the head/brain was performed without and with the administration of intravenous contrast. COMPARISON: None. HISTORY: ORDERING SYSTEM PROVIDED HISTORY: Reason for Exam: Neuropathy, leg weakness, urine issues, dysphagia; evaluate for multiple sclerosis. FINDINGS: No acute infarct or acute hemorrhage. No midline shift, mass effect or hydrocephalus. There are a few scattered foci of T2 prolongation in the frontal white matter predominantly in the subcortical regions. The dominant signal abnormality measures 8 mm in the posterolateral aspect of the right frontal lobe. No abnormal postcontrast enhancement. Basilar cisterns patent. Mild sinus inflammatory disease. Mastoids clear. IMPRESSION: Mild nonspecific nonenhancing white matter disease. Differential considerations include chronic small vessel ischemic change, demyelination and other infectious/inflammatory etiologies. Interpreted by: Alejandro Madsen Preliminary Report By: Alejandro Madsen Electronically signed By Alejandro Madsen Dictated Date: 09/21/2023 7:56:37 AM Prelim Date: 09/21/2023 8:01:59 AM Sign Date: 09/21/2023 8:01:59 AM Ordering Provider: FRANTZ Kam [address] 09-03-2023 Vitamin B1 (TDP), Whole Blood 133.6 nmol/L Normal 84.3-213.3 [facility]) Comment on above: Result Comment: This assay measures the concentration of thiamine diphosphate (TDP), the primary active form of vitamin B1. Approximately 90 percent of vitamin B1 present in whole blood is TDP. Thiamine and thiamine monophosphate, which comprise the remaining 10 percent, are not measured. This test was developed and its performance characteristics determined by [facility] [place] ([facility] It has not been cleared or approved by the FDA. -[facility] is regulated under CLIA as qualified to perform high-complexity testing. This test is used for clinical purposes. It should not be regarded as investigational or for research. Performed By: [facility] [address] [place] [address] Flame Gouger: Ancelmo Brown III, M.D. CLIA#: [id number] Performed By: #### C RE, GFR #### [place] [address] .Urinalysis Microscopic (AO) on 09-02-2023 UA Bacteria Trace Abnormal [facility] [place] Comment on above: Performed By: #### C MP, GFR, LIPID #### [facility] [address] [place], [place] [address] UA RBC None Seen Normal None Seen [facility] [place] Comment on above: Performed By: #### C MP, GFR, LIPID #### [facility] [address] [place], [place] [address] UA Squam Epithelial None Seen Normal None Seen [facility] ([place]) Comment on above: Performed By: #### C MP, GFR, LIPID #### [facility] [address] [place], [place] [address] UA WBC None Seen Normal None Seen [facility] [place] Comment on above: Performed By: #### C MP, GFR, LIPID #### [facility] [address] [place], [place] [address] LABORATORYOrdered By: Yuri Galdamez on 09-02-2023 Appearance (U) Clear (09/02/23 11:42 AM) Invalid Interpretation Code Clear AO Auto Urine SS Bacteria LM.HPF (Urine sed) [#/Area] Trace /HPF Invalid Interpretation Code AO Auto Urine SS Bilirubin Ql (U) Negative (09/02/23 11:42 AM) Invalid Interpretation Code Negative AO Auto Urine SS Color (U) Yellow (09/02/23 11:42 AM) Invalid Interpretation Code AO Auto Urine SS Glucose Test strip (U) [Mass/Vol] Negative Invalid Interpretation Code Negative AO Auto Urine SS Hemoglobin Auto test strip (U) [Mass/Vol] Negative (09/02/23 11:42 AM) Invalid Interpretation Code Negative AO Auto Urine SS Ketones Ql (U) Negative Invalid Interpretation Code Negative AO Auto Urine SS UA Leuk Est Negative (09/02/23 11:42 AM) Invalid Interpretation Code Negative AO Auto Urine SS UA Nitrite Negative (09/02/23 11:42 AM) Invalid Interpretation Code Negative AO Auto Urine SS UA pH 7.0 (09/02/23 11:42 AM) Invalid Interpretation Code 5.0 - 8.0 AO Auto Urine SS UA Protein Negative Invalid Interpretation Code Negative AO Auto Urine SS UA RBC None Seen /HPF Invalid Interpretation Code None Seen AO Auto Urine SS UA Spec Grav 1.020 (09/02/23 11:42 AM) Invalid Interpretation Code 1.015-1.025 AO Auto Urine SS UA Specimen Type Not Given (09/02/23 11:42 AM) Invalid Interpretation Code AO Auto Urine SS UA Squam Epithelial None Seen /HPF Invalid Interpretation Code None Seen AO Auto Urine SS UA Urobilinogen 0.2 E.U./dL Invalid Interpretation Code 0.2-1.0 AO Auto Urine SS WBC LM.HPF (Urine sed) [#/Area] None Seen /HPF Invalid Interpretation Code None Seen AO Auto Urine SS LABORATORYOrdered By: Domi Millan on 09-02-2023 Albumin DL <= 20 mg/L (U) [Mass/Vol] 320 mcg/dL Invalid Interpretation Code AO ADM SS Albumin/Creatinine DL <= 20 mg/L (U) [Mass ratio] 5 mcg/mg Invalid Interpretation Code 0 - 30 mcg/mg AO ADM SS Creatinine (U) [Mass/Vol] 62.2 mg/dL Invalid Interpretation Code 39.0 - 259.0 mg/dL AO ADM SS LYPCRon 09-02-2023 Lyme PCR Not detected [facility] [place] Comment on above: Result Comment: NOT DETECTED - A negative result does not rule out the presence of PCR inhibitors in the patient specimen or assay specific nucleic acid in concentrations below the level of detection by the assay. Blood and CSF specimens have poor clinical sensitivity for detection of Borrelia burgdorferi by PCR. INTERPRETIVE INFORMATION: Borrelia Species DNA Detection by PCR This test was developed and its performance characteristics determined by [facility]. It has not been cleared or approved by the [place] Food and Drug Administration. This test was performed in a CLIA certified laboratory and is intended for clinical purposes. Performed By: [facility] [address] [place] [address] Narcotics And Vice Detective: Dennis Lawrence MD, PhD CLIA Number: [id number] Performed By: #### C RE, GFR #### [address] [address] Lyme Source Plasma Normal [facility] [place] Comment on above: Performed By: #### C RE, GFR #### [facility] [address] [address] MALBRon 09-02-2023 U Creatinine 62.2 mg/dL Normal 39.0-259.0 [facility] ([place]) Comment on above: Performed By: #### M ALBR #### [address] [address] U Microalb 320 mcg/dL Normal [facility] [place] Comment on above: Performed By: #### M ALBR #### [address] [address] U Ratio Alb/Cre 5 mcg/mg Normal 0-30 [facility] [place] Comment on above: Performed By: #### M ALBR #### [address] [address] MISCon 09-02-2023 Misc. Send Out See Comments Normal [facility] [place] Comment on above: Order Comment: Heavy Metal Screen, Whole Blood Result Comment: Comp lete reference lab report scanned to EMR. Performed By: #### M ISC #### [address] [address] UAon 09-02-2023 Color (U) Yellow Normal [facility] [place] Comment on above: Performed By: #### C MP, GFR, LIPID #### [address] [address] Glucose (U) [Mass/Vol] Negative Normal Negative [facility] [place] Comment on above: Performed By: #### C MP, GFR, LIPID #### [address] [address] Ketones Ql (U) Negative Normal Negative [facility] [place] Comment on above: Performed By: #### C MP, GFR, LIPID #### [address] [address] UA Appear Clear Normal Clear [facility] [place] Comment on above: Performed By: #### C MP, GFR, LIPID #### [address] [address] UA Blood Negative Normal Negative [facility] [place] Comment on above: Performed By: #### C MP, GFR, LIPID #### [facility] [address] UA Leuk Est Negative Normal Negative [facility] [place] Comment on above: Performed By: #### C MP, GFR, LIPID #### [address] [address] UA Nitrite Negative Normal Negative [facility] [place] Comment on above: Performed By: #### C MP, GFR, LIPID #### [address] [address] UA pH 7.0 Normal 5.0 - 8.0 [facility] [place] Comment on above: Performed By: #### C MP, GFR, LIPID #### [address] [address] UA Protein Negative Normal Negative [facility] [place] Comment on above: Performed By: #### C MP, GFR, LIPID #### [address] [address] UA Spec Grav 1.020 Normal 1.015-1.025 [facility] [place] Comment on above: Performed By: #### C MP, GFR, LIPID #### [address] [address] UA Specimen Type Not Given Normal [facility] [place] Comment on above: Performed By: #### C MP, GFR, LIPID #### [address] [address] UA Urobilinogen 0.2 E.U./dL Normal 0.2-1.0 [facility] [place] Comment on above: Performed By: #### C MP, GFR, LIPID #### [address] [address] Urobilinogen (U) [Mass/Vol] Negative Normal Negative [facility] [place] Comment on above: Performed By: #### C MP, GFR, LIPID #### [address] [address] UPEon 09-02-2023 UPE Interpretation There was no appreciable protein detected by electrophoresis of concentrated urine. Normal [facility] [place] Comment on above: Result Comment: Elec tronically Signed by: JEANA GILLESPIE 09/02/2023 14:02 EDT Performed By: #### C MP, GFR, LIPID #### [address] [address] ANAIFSon 09-01-2023 Antinuclear Ab Screen Negative Normal Negative [facility] [place] Comment on above: Result Comment: Anti -nuclear antibody test is used as an aid in diagnosis of systemic autoimmune diseases. Where positive and clinically warranted, follow-up using disease-specific testing is recommended. Low positive titers are not uncommon with advanced age, certain chronic infections, and malignancies among others. Test methodology: Indirect fluorescence immunoassay (IFA) using HEp-2 cells. Performed By: [facility] [address] [place] [address] Flame Gouger: Ancelmo Brown III, M.D. CLIA#: [id number] Performed By: #### A NAIFS #### [address] [address] ANCAon 09-01-2023 C-ANCA 1.2 Normal 0.0-20.0 [facility] [place] Comment on above: Result Comment: NEW REFERENCE RANGES FOR ANCA BY EIA: NEGATIVE <= 20 UNITS WEAK POSITIVE 21 - 30 UNITS MOD. TO STRONG POSITIVE > 30 UNITS A positive result indicates the presence of AZ-3 antibodies and suggests the possibility of certain autoimmune vasculitides such as Sharee?s granulomatosis. A negative result indicates no AZ-3 antibody or levels below the negative cut-off of the assay. These results were obtained with the Repligen QUANTA Lite AZ-3 IgG JAVIER. AZ-3 values obtained with different manufacturers? assay methods may not be used interchangeably. The magnitude of the reported IgG level cannot be correlated to an endpoint titer. Results of this assay should be used in conjunction with clinical findings. Performed By: #### C RE, GFR #### [facility] [address] [address] Cytoplasmic Neutro. Ab. See Below Normal [facility] [place] Comment on above: Performed By: #### C RE, GFR #### [facility] [address] [address] P-ANCA 2.7 Normal 0.0-20.0 [facility] [place] Comment on above: Result Comment: REFE RENCE RANGES FOR ANCA BY EIA: NEGATIVE <= 20 UNITS WEAK POSITIVE 21 - 30 UNITS MOD. TO STRONG POSITIVE > 30 UNITS A positive result indicates the presence of MPO antibodies and suggests the possibility of certain autoimmune vasculitides such as microscopic polyarteritis, and crescentic glomerulonephritis. A negative result indicates no MPO antibody or levels below the negative cut-off of the assay. These results were obtained with the Repligen QUANTA Lite MPO IgG JAVIER. MPO values obtained with different manufacturers? assay methods may not be used interchangeably. The magnitude of the reported IgG level cannot be correlated to an endpoint titer. Results of this assay should be used in conjunction with clinical findings. Performed By: #### C RE, GFR #### [address] [address] RFon 09-01-2023 Rheumatoid Factor <6.0 Normal <=5.9 [facility] [place] Comment on above: Result Comment: RF I gM Antibody by Enzyme Immunoassay: Negative < or = 6 Positive > 6 A positive result indicates the presence of RF antibodies and suggests the possibility of rheumatoid arthritis. A negative result indicates no RF IgM antibody or levels below the negative cut-off of the assay. Results of this assay should be used in conjunction with clinical findings and other serological tests. These results were obtained with the Clustrix QUANTA Lite RF IgM JAVIER. RF IgM values obtained with different manufacturers' assay methods may not be used interchangeably. The magnitude of the reported IgM levels cannot be correlated to an endpoint titer. Performed By: #### C RE, GFR #### [address] [address] [id number] 08-31-2023 Vitamin B6 Lvl 120.9 nmol/L Normal 20.0-125.0 [facility] [place] Comment on above: Result Comment: INTE RPRETIVE INFORMATION: Vitamin B6 (Pyridoxal 5-Phosphate) Pyridoxal 5'-phosphate measured in a specimen collected following an 8-hour or overnight fast accurately indicates vitamin B6 nutritional status. Non-fasting specimen concentration reflects recent vitamin intake. This test was developed and its performance characteristics determined by [facility]. It has not been cleared or approved by the [place] Food and Drug Administration. This test was performed in a CLIA certified laboratory and is intended for clinical purposes. Performed By: [facility] [address] [place] [address] Narcotics And Vice Detective: Dennis Lawrence MD, PhD CLIA Number: [id number] Performed By: #### C RE, GFR #### [address] [address] RPRon 08-29-2023 Reagin Ab RPR Ql (S) Non-Reactive Normal Non-Reactive [facility] [place] Comment on above: Result Comment: The RPR test is a non-treponemal assay useful as an aid in the diagnosis of primary and secondary syphilis. It converts to positive generally within 2 weeks after the appearance of a lesion. This test is also useful for monitoring response to antibiotic therapy. A positive RPR screening test will be followed by the FTA ABS test. False positive RPR tests may occur in 1) patients with underlying autoimmune disorders, 2) elderly patients, 3) , and 4) other conditions with abnormal serum globulins. Performed By: #### C RE, GFR #### [address] [address] SPEon 08-29-2023 SPE Interpretation Normal serum protein electrophoresis pattern. No abnormality detected. Normal [facility] [place] Comment on above: Result Comment: Elec tronically Signed by: RICH QUIROS MD 08/29/2023 13:39 EDT Performed By: #### C RE, GFR #### [address] [address] Albumin 3.8 G/dL Normal 3.3-5.0 [facility] [place] Comment on above: Performed By: #### C RE, GFR #### [address] [address] Alpha 1 0.2 G/dL Normal 0.1-0.4 [facility] [place] Comment on above: Performed By: #### C RE, GFR #### [address] [address] Alpha 2 0.9 G/dL Normal 0.6-1.2 [facility] [place] Comment on above: Performed By: #### C RE, GFR #### [address] [address] Beta 0.9 G/dL Normal 0.6-1.3 [facility] [place] Comment on above: Performed By: #### C RE, GFR #### [address] [address] Gamma 0.8 G/dL Normal 0.7-1.6 [facility] [place] Comment on above: Performed By: #### C RE, GFR #### [address] [address] .Auto Diffon 08-28-2023 Basophil, Absolute 0.0 10 3/mcL Normal 0.0-0.2 [facility] ([place]) Comment on above: Performed By: #### M ALBR #### [address] [address] Basophils/100 WBC (Bld) 0.5 % Normal 0.0-2.5 [facility] [place] Comment on above: Performed By: #### M ALBR #### [address] [address] Eosinophil, Absolute 0.0 10 3/mcL Normal 0.0-0.4 [facility] ([place]) Comment on above: Performed By: #### M ALBR #### [address] [address] Eosinophils/100 WBC (Bld) 0.1 % Normal 0.0-7.0 [facility] [place] Comment on above: Performed By: #### M ALBR #### [address] [address] Lymphocyte, Absolute 1.5 10 3/mcL Normal 0.8-3.9 [facility] ([place]) Comment on above: Performed By: #### M ALBR #### [address] [address] Lymphocytes/100 WBC (Bld) 25.1 % Normal 10.0-50.0 [facility] [place] Comment on above: Performed By: #### M ALBR #### [address] [address] Monocyte, Absolute 0.6 10 3/mcL Normal 0.2-1.0 [facility] ([place] Comment on above: Performed By: #### M ALBR #### [address] [address] Monocytes/100 WBC (Bld) 9.6 % Normal 1.7-13.0 [facility] [place] Comment on above: Performed By: #### M ALBR #### [address] [address] Neutrophils/100 WBC (Bld) 64.7 % Normal 37.0-80.0 [facility] [place] Comment on above: Performed By: #### M ALBR #### [address] [address] .GFRon 08-28-2023 GFR Non- 70 ml/min/1.73sqm Normal [facility] [place] Comment on above: Result Comment: GFR Population mean for , Non- Americans Ages 20-29 = 116 mL/min/1.73 sq.m. Ages 30-39 = 107 mL/min/1.73 sq.m. Ages 40-49 = 99 mL/min/1.73 sq.m. Ages 50-59 = 93 mL/min/1.73 sq.m. Ages 60-69 = 85 mL/min/1.73 sq.m. Ages 70+ = 75 mL/min/1.73 sq.m. Chronic Kidney Disease: Less than 60 mL/min/1.73 square meters End Stage Renal Disease: Less than 15 mL/min/1.73 square meters Performed By: #### C RE, GFR #### [address] [address] GFR 85 ml/min/1.73sqm Normal [facility] [place] Comment on above: Result Comment: GFR Population mean for , Non- Americans Ages 20-29 = 116 mL/min/1.73 sq.m. Ages 30-39 = 107 mL/min/1.73 sq.m. Ages 40-49 = 99 mL/min/1.73 sq.m. Ages 50-59 = 93 mL/min/1.73 sq.m. Ages 60-69 = 85 mL/min/1.73 sq.m. Ages 70+ = 75 mL/min/1.73 sq.m. Chronic Kidney Disease: Less than 60 mL/min/1.73 square meters End Stage Renal Disease: Less than 15 mL/min/1.73 square meters Performed By: #### C RE, GFR #### [address] [address] .NEUABSon 08-28-2023 Neutrophil, Absolute 3.8 10 3/mcL Normal 2.9-6.2 [facility] ([place]) Comment on above: Performed By: #### M ALBR #### [address] [address] A1Con 08-28-2023 HbA1c (Bld) [Mass fraction] 5.7 % Normal 4.3-6.4 [facility] [place] Comment on above: Performed By: #### C RE, GFR #### [place] [address]7627 B12on 08-28-2023 Cobalamin (Vitamin B12) [Mass/Vol] 399 pg/mL Normal 211-911 [facility] [place] Comment on above: Performed By: #### C RE, GFR #### [address] [address] CBCon 08-28-2023 Erythrocyte distribution width (RBC) [Ratio] 13.2 % Normal 11.5-14.5 [facility] [place] Comment on above: Performed By: #### M ALBR #### [address] [address] Hematocrit (Bld) [Volume fraction] 44.7 % Normal 42.0-52.0 [facility] [place] Comment on above: Performed By: #### M ALBR #### [address] [address] Hgb 14.9 G/dL Normal 14.0-18.0 [facility] [place] Comment on above: Performed By: #### M ALBR #### [address] [address] MCH (RBC) [Entitic mass] 31.2 pg Normal 27.0-31.2 [facility] [place] Comment on above: Performed By: #### M ALBR #### [address] [address] MCHC 33.4 G/dL Normal 31.8-35.4 [facility] [place] Comment on above: Performed By: #### M ALBR #### [address] [address] MCV (RBC) [Entitic vol] 93.3 fL Normal 80.0-94.0 [facility] [place] Comment on above: Performed By: #### M ALBR #### [address] [address] Platelet 201 10 3/mcL Normal 130-400 [facility] [place] Comment on above: Performed By: #### M ALBR #### [address] [address] Platelet mean volume (Bld) [Entitic vol] 8.8 fL Normal 7.4-10.4 [facility] [place] Comment on above: Performed By: #### M ALBR #### [address] [address] RBC 4.79 10 6/mcL Normal 4.04-6.13 [facility] [place] Comment on above: Performed By: #### M ALBR #### [address] [address] WBC 5.9 10 3/mcL Normal 4.6-10.8 [facility] [place] Comment on above: Performed By: #### M ALBR #### [address] [address] CMPon 09-28-2023 Albumin Level 4.2 G/dL Normal 3.4-4.8 [facility] [place] Comment on above: Performed By: #### C RE, GFR #### [address] [address] Albumin/Globulin [Mass ratio] 1.6 {ratio} Normal 1.1-2.5 [facility] [place] Comment on above: Performed By: #### C RE, GFR #### [address] [address] ALP [Catalytic activity/Vol] 60 U/L Normal 40-135 [facility] [place] Comment on above: Performed By: #### C RE, GFR #### [address] [address] ALT [Catalytic activity/Vol] 47 U/L Normal 16-63 [facility] [place] Comment on above: Performed By: #### C RE, GFR #### [address] [address] AST [Catalytic activity/Vol] 20 U/L Normal 10-40 [facility] [place] Comment on above: Performed By: #### C RE, GFR #### [address] [address] Bili Total 0.4 mg/dL Normal 0.2-1.0 [facility] [place] Comment on above: Result Comment: Use of this assay is not recommended for patients undergoing treatment with eltrombopag due to the potential for falsely elevated results. Performed By: #### C RE, GFR #### [address] [address] BUN/Creatinine Ratio 11 ratio Normal 7-27 [facility] ([place]) Comment on above: Performed By: #### C RE, GFR #### [address] [address] Calcium [Mass/Vol] 9.3 mg/dL Normal 8.4-10.2 [facility] ([place]) Comment on above: Performed By: #### C RE, GFR #### [address] [address] Chloride [Moles/Vol] 102 mmol/L Normal 98-107 [facility] ([place] Comment on above: Performed By: #### C RE, GFR #### [address] [address] CO2 [Moles/Vol] 26 mmol/L Normal 23-31 [facility] [place] Comment on above: Performed By: #### C RE, GFR #### [address] [address] Creatinine [Mass/Vol] 1.05 mg/dL Normal 0.70-1.30 [facility] [place] Comment on above: Performed By: #### C RE, GFR #### [address] [address] Electrolyte Balance 12.0 mEq/L Normal 4.0-15.0 [facility] ([place]) Comment on above: Performed By: #### C RE, GFR #### [address] [address] Globulin 2.7 G/dL Normal [facility] [place] Comment on above: Performed By: #### C RE, GFR #### [address] [address] Glucose [Mass/Vol] 118 mg/dL High 80-115 [facility] ([place]) Comment on above: Performed By: #### C RE, GFR #### [address] [address] Potassium [Moles/Vol] 4.5 mmol/L Normal 3.5-5.1 [facility] [place] Comment on above: Performed By: #### C RE, GFR #### [address] [address] Sodium [Moles/Vol] 140 mmol/L Normal 136-145 [facility] ([place]) Comment on above: Performed By: #### C RE, GFR #### [address] [address] Total Protein 6.9 G/dL Normal 6.4-8.2 [facility] [place] Comment on above: Performed By: #### C RE, GFR #### [address] [address] Urea nitrogen [Mass/Vol] 12 mg/dL Normal 7-18 [facility] [place] Comment on above: Performed By: #### C RE, GFR #### [place] [id number] CRPon 08-28-2023 C-Reactive Protein 0.1 mg/dL Normal 0.0-0.3 [facility] ([place]) Comment on above: Performed By: #### M ALBR #### [place] [id number] ESRon 08-28-2023 Erythrocyte Sed Rate 12 mm/hr Normal 0-20 [facility] ([place]) Comment on above: Performed By: #### M ALBR #### [place] [id number] George 08-28-2023 Ferritin [Mass/Vol] 382.0 ng/mL Normal 26.0-388.0 [facility] ([place]) Comment on above: Performed By: #### M ALBR #### [address] [address] FT4on 08-28-2023 Free T4 [Mass/Vol] 0.90 ng/dL Normal 0.76-1.46 [facility] ([place]) Comment on above: Performed By: #### C RE, GFR #### [address] [address] HIVRPon 08-28-2023 HIV p24 Antigen Non-Reactive Normal Non-Reactive [facility] ([place]) Comment on above: Result Comment: Dete ction of p24 may be inhibited by biotin in the sample, causing false negative results in acute infection. Therefore do not test samples from patients who are taking biotin. Performed By: #### M ALBR #### [place] [id number] HIV P24 Int Non-Reactive Invalid Interpretation Code [facility] [place] Comment on above: Performed By: #### M ALBR #### [address] [address] Rapid HIV 1/2 Antibody Non-Reactive Normal Non-Reactive [facility]) Comment on above: Performed By: #### M ALBR #### [address] [address] RHIV 1/2 Ab Int Non-Reactive Invalid Interpretation Code [facility] [place] Comment on above: Performed By: #### M ALBR #### [address] [address] SPEon 08-28-2023 Total Protein 6.5 G/dL Normal 5.7-8.2 [facility]) Comment on above: Result Comment: No te - New Reference Range in effect 20 Performed By: #### C RE, GFR #### [address] [address] TSHon 08-28-2023 TSH Qn 0.68 m[IU]/L Normal 0.36-3.74 [facility]) Comment on above: Performed By: #### M ALBR #### [address] [address] [address] CARD[address]AC SCORINGon 023 CT CARDIAC SCORING Patient Name: RICH PERALES STUDY: CT CARDIAC SCORING; 08/22/2023 7:51 am INDICATION: E78.5 Hyperlipidemia, unspecified I10 Essential (primary) hypertension 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 ACCESSION NUMBER(S): [id number] ORDERING CLINICIAN: RUTH ANN JONES TECHNIQUE: Using prospective ECG gating, CT scan of the coronary arteries was performed without intravenous contrast. Coronary calcium scoring was performed according to the method of Agatston. FINDINGS: The calcium score in the coronary arteries is as follows: LM 0 LAD 226.47 LCx 2.98 RCA 158.53 Total 387.98 The visualized mid/lower ascending thoracic aorta measures 4 cm in diameter. The heart is normal in size. No pericardial effusion is present. No gross evidence of mediastinal or hilar lymphadenopathy or masses is identified. The visualized segments of the lungs demonstrate calcified benign granulomas in the left lower lobe.. The visualized subdiaphragmatic structures appear intact. IMPRESSION: The ascending aorta is borderline dilated at 4 cm diameter. Coronary artery calcium score of 387.98*. *Coronary artery calcium scoring may be helpful in predicting the risk for future coronary heart disease events. According to the [place] [employer] Clinical Expert Consensus Task Force, such testing provides important prognostic information in patients with more than one coronary heart disease risk factor. The coronary artery calcium score correlates with the annual risk of a non-fatal myocardial infarction or coronary heart disease . Coronary artery score Annual Risk 0-99 0.4% 100-399 1.3% >400 2.4% These three breakpoints correspond to lower, intermediate and high risk states for future coronary events. Such information should be used, along with appropriate clinical judgment, to make decisions regarding the intensity of risk factor management strategies to treat blood lipids and to modify other non-lipid coronary risk factors. Reference: Harvey P et al. Circulation. 2007; 115:402-426 MACRO: None Electronically signed by: MIKE CRUZ MD [facility] .GFRon 08-12-2023 GFR 86 ml/min/1.73sqm Normal [facility] [place] Comment on above: Result Comment: GFR Population mean for , Non- Americans Ages 20-29 = 116 mL/min/1.73 sq.m. Ages 30-39 = 107 mL/min/1.73 sq.m. Ages 40-49 = 99 mL/min/1.73 sq.m. Ages 50-59 = 93 mL/min/1.73 sq.m. Ages 60-69 = 85 mL/min/1.73 sq.m. Ages 70+ = 75 mL/min/1.73 sq.m. Chronic Kidney Disease: Less than 60 mL/min/1.73 square meters End Stage Renal Disease: Less than 15 mL/min/1.73 square meters Performed By: #### C RE, GFR #### [facility] [address] [address] GFR Non- 71 ml/min/1.73sqm Normal [facility] [place] Comment on above: Result Comment: GFR Population mean for , Non- Americans Ages 20-29 = 116 mL/min/1.73 sq.m. Ages 30-39 = 107 mL/min/1.73 sq.m. Ages 40-49 = 99 mL/min/1.73 sq.m. Ages 50-59 = 93 mL/min/1.73 sq.m. Ages 60-69 = 85 mL/min/1.73 sq.m. Ages 70+ = 75 mL/min/1.73 sq.m. Chronic Kidney Disease: Less than 60 mL/min/1.73 square meters End Stage Renal Disease: Less than 15 mL/min/1.73 square meters Performed By: #### C RE, GFR #### [address] [address] CREon 08-12-2023 Creatinine [Mass/Vol] 1.04 mg/dL Normal 0.70-1.30 [facility] ([place] Comment on above: Performed By: #### C RE, GFR #### [address] [address] [address] ABD/PELVIS W/ IV CONTRAST ONLYon 08-12-2023 CT ABD/PELVIS W/ IV CONTRAST ONLY ORIGINAL HISTORY: Pain, history of prostatitis COMPARISON: No TECHNIQUE: CT of the Abdomen and Pelvis following uncomplicated administration of intravenous contrast, with sagittal and coronal reconstructions. This exam was performed according to our departmental dose optimization program, and includes the following measures where applicable: automated exposure control, adjustment of the mAs and/or kVp according to patient size and/or exam, and an iterative reconstruction algorithm. FINDINGS: There is a subcentimeter hypodensity in the liver, too small to characterize further. The abdominal organs are otherwise unremarkable in appearance. Bowel is poorly evaluated in the absence of oral contrast. The appendix is not identified. There are a few small calcifications in the prostate gland; prostate gland is otherwise unremarkable. There is no pelvic or inguinal lymphadenopathy. There is no free fluid. IMPRESSION: Unremarkable examination. Interpreted by: Blas Viramontes MD Preliminary Report By: Blas Viramontes MD Electronically signed By Blas Viramontes MD Dictated Date: 08/12/2023 1:25:17 PM Prelim Date: 08/12/2023 1:28:14 PM Sign Date: 08/12/2023 1:28:14 PM Ordering Provider: KARLA WHALEY [facility] No Panel Informationon 07-26 Culture Urine No growth at 48 hours. [facility] A1Con 07-24-2023 HbA1c (Bld) [Mass fraction] 5.7 % Normal 4.3-6.4 [facility] Comment on above: Performed By: #### C RE, GFR #### [facility] [address], [place] [address] B12on 07-24-2023 Cobalamin (Vitamin B12) [Mass/Vol] 434 pg/mL Normal 211-911 [facility] Comment on above: Performed By: #### C MP, GFR, LIPID #### [facility] [address], [place] [address] LABORATORYOrdered By: Kiersten Fernandes on 07-24-2023 Cholesterol [Mass/Vol] 202 mg/dL Invalid Interpretation Code 0 - 200 mg/dL AO ADM SS Comment on above: Interpretive Data: C holesterol Reference Interval: Less than 200 Desirable 200-239 Borderline high risk 240 and above High risk Cholesterol in HDL [Mass/Vol] 41 mg/dL Invalid Interpretation Code 40 - 60 mg/dL AO ADM SS Cholesterol in LDL [Mass/Vol] 144 mg/dL Invalid Interpretation Code 0 - 130 mg/dL AO ADM SS Triglyceride [Mass/Vol] 87 mg/dL Invalid Interpretation Code 0 - 150 mg/dL AO ADM SS Comment on above: Interpretive Data: T riglyceride Reference Interval: Less than 150 Normal 150-199 Borderline high risk 200-499 High risk 500 or higher Very high risk LABORATORYOrdered By: SYSTEM SYSTEM on 07-24-2023 Cobalamin (Vitamin B12) [Mass/Vol] 434 pg/mL Invalid Interpretation Code 211 - 911 pg/mL AH ADM SS HbA1c (Bld) [Mass fraction] 5.7 % Invalid Interpretation Code 4.3 - 6.4 % AO ADM SS LIPIDon 07-24-2023 Cholesterol [Mass/Vol] 202 mg/dL High 0-200 [facility] Comment on above: Result Comment: Chol esterol Reference Interval: Less than 200 Desirable 200-239 Borderline high risk 240 and above High risk Performed By: #### C MP, GFR, LIPID #### [facility] [address], [place] [address] Cholesterol in HDL [Mass/Vol] 41 mg/dL Normal 40-60 [facility] Comment on above: Performed By: #### C MP, GFR, LIPID #### [facility] [address], [place] [address] Cholesterol in LDL [Mass/Vol] 144 mg/dL High 0-130 [facility] Comment on above: Performed By: #### C MP, GFR, LIPID #### [place] [id number], [place] [address] Triglyceride [Mass/Vol] 87 mg/dL Normal 0-150 [facility] Comment on above: Result Comment: Trig lyceride Reference Interval: Less than 150 Normal 150-199 Borderline high risk 200-499 High risk 500 or higher Very high risk Performed By: #### C MP, GFR, LIPID #### [place] [address] [place], [place] [address] LABORATORYOrdered By: SYSTEM SYSTEM on 06-09-2023 Troponin I.cardiac DL <= 0.01 ng/mL [Mass/Vol] 9.2 ng/L Invalid Interpretation Code 0.0 - 76.2 ng/L AO ADM SS Basophil, Absolute 0.0 103/mcL Invalid Interpretation Code 0.0 - 0.2 10^3/mcL AO Workflow SS Basophils/100 WBC (Bld) 0.5 % Invalid Interpretation Code 0.0 - 2.5 % AO Workflow SS Calcium [Mass/Vol] 9.7 mg/dL Invalid Interpretation Code 8.4 - 10.2 mg/dL AO ADM SS Chloride [Moles/Vol] 104 mmol/L Invalid Interpretation Code 98 - 107 mmol/L AO ADM SS CO2 [Moles/Vol] 22 mmol/L Invalid Interpretation Code 23 - 31 mmol/L AO ADM SS Creatinine [Mass/Vol] 0.96 mg/dL Invalid Interpretation Code 0.70 - 1.30 mg/dL AO ADM SS Electrolyte Balance 15.0 mEq/L Invalid Interpretation Code 4.0 - 15.0 mEq/L AO ADM SS Eosinophil, Absolute 0.0 103/mcL Invalid Interpretation Code 0.0 - 0.4 10^3/mcL AO Workflow SS Eosinophils/100 WBC (Bld) 0.2 % Invalid Interpretation Code 0.0 - 7.0 % AO Workflow SS Erythrocyte distribution width (RBC) [Ratio] 13.5 % Invalid Interpretation Code 11.5 - 14.5 % AO Workflow SS Free T4 [Mass/Vol] 1.18 ng/dL Invalid Interpretation Code 0.76 - 1.46 ng/dL AO ADM SS GFR/1.73 sq M.predicted among blacks MDRD (S/P/Bld) [Vol rate/Area] 94 ml/min/1.73sqm Invalid Interpretation Code AO Chemistry S GFR/1.73 sq M.predicted among non-blacks MDRD (S/P/Bld) [Vol rate/Area] 78 ml/min/1.73sqm Invalid Interpretation Code AO Chemistry S Glucose [Mass/Vol] 116 mg/dL Invalid Interpretation Code 80 - 115 mg/dL AO ADM SS Hematocrit (Bld) [Volume fraction] 45.5 % Invalid Interpretation Code 42.0 - 52.0 % AO Workflow SS Hemoglobin (Bld) [Mass/Vol] 15.0 G/dL Invalid Interpretation Code 14.0 - 18.0 G/dL AO Workflow SS Lymphocyte, Absolute 1.8 103/mcL Invalid Interpretation Code 0.8 - 3.9 10^3/mcL AO Workflow SS Lymphocytes/100 WBC (Bld) 29.3 % Invalid Interpretation Code 10.0 - 50.0 % AO Workflow SS MCH (RBC) [Entitic mass] 30.6 pg Invalid Interpretation Code 27.0 - 31.2 pg AO Workflow SS MCHC 32.9 G/dL Invalid Interpretation Code 31.8 - 35.4 G/dL AO Workflow SS MCV (RBC) [Entitic vol] 93.0 fL Invalid Interpretation Code 80.0 - 94.0 fL AO Workflow SS Monocyte distribution width Auto (Bld) [Entitic vol] 16.36 Invalid Interpretation Code 0.00 - 20.00 AO Workflow SS Comment on above: Result Comment: For ED adult patients suspected of sepsis, MDW<=20.0 does not rule out sepsis or risk of sepsis Monocyte, Absolute 0.6 103/mcL Invalid Interpretation Code 0.2 - 1.0 10^3/mcL AO Workflow SS Monocytes/100 WBC (Bld) 9.9 % Invalid Interpretation Code 1.7 - 13.0 % AO Workflow SS Neutrophil, Absolute 3.7 103/mcL Invalid Interpretation Code 2.9 - 6.2 10^3/mcL AO Workflow SS Neutrophils/100 WBC (Bld) 60.1 % Invalid Interpretation Code 37.0 - 80.0 % AO Workflow SS Platelet mean volume (Bld) [Entitic vol] 8.9 fL Invalid Interpretation Code 7.4 - 10.4 fL AO Workflow SS Platelets (Bld) [#/Vol] 194 103/mcL Invalid Interpretation Code 130 - 400 10^3/mcL AO Workflow SS Potassium [Moles/Vol] 3.9 mmol/L Invalid Interpretation Code 3.5 - 5.1 mmol/L AO ADM SS RBC (Bld) [#/Vol] 4.90 106/mcL Invalid Interpretation Code 4.04 - 6.13 10^6/mcL AO Workflow SS Sodium [Moles/Vol] 141 mmol/L Invalid Interpretation Code 136 - 145 mmol/L AO ADM SS Troponin I.cardiac DL <= 0.01 ng/mL [Mass/Vol] 7.7 ng/L Invalid Interpretation Code 0.0 - 76.2 ng/L AO ADM SS TSH Qn 0.58 m[IU]/L Invalid Interpretation Code 0.36 - 3.74 mcIU/mL AO ADM SS Urea nitrogen [Mass/Vol] 15 mg/dL Invalid Interpretation Code 7 - 18 mg/dL AO ADM SS Urea nitrogen/Creatinine [Mass ratio] 16 ratio Invalid Interpretation Code 7 - 27 ratio AO ADM SS WBC (Bld) [#/Vol] 6.2 103/mcL Invalid Interpretation Code 4.6 - 10.8 10^3/mcL AO Workflow SS LABORATORYOrdered By: Kiersten Fernandes on 06-09-2023 Fibrin D-dimer DDU (PPP) [Mass/Vol] ng/mL D-DU Invalid Interpretation Code 0 - 230 ng/mL D-DU AO [facility] SS LABORATORYOrdered By: Kiersten Goncalves on 05-27-2023 Basophil, Absolute 0.0 103/mcL Invalid Interpretation Code 0.0 - 0.2 10^3/mcL AO Workflow SS Basophils/100 WBC (Bld) 0.4 % Invalid Interpretation Code 0.0 - 2.5 % AO Workflow SS Eosinophil, Absolute 0.1 103/mcL Invalid Interpretation Code 0.0 - 0.4 10^3/mcL AO Workflow SS Eosinophils/100 WBC (Bld) 1.0 % Invalid Interpretation Code 0.0 - 7.0 % AO Workflow SS Erythrocyte distribution width (RBC) [Ratio] 13.2 % Invalid Interpretation Code 11.5 - 14.5 % AO Workflow SS Hematocrit (Bld) [Volume fraction] 44.4 % Invalid Interpretation Code 42.0 - 52.0 % AO Workflow SS Hemoglobin (Bld) [Mass/Vol] 15.1 G/dL Invalid Interpretation Code 14.0 - 18.0 G/dL AO Workflow SS Lymphocyte, Absolute 2.4 103/mcL Invalid Interpretation Code 0.8 - 3.9 10^3/mcL AO Workflow SS Lymphocytes/100 WBC (Bld) 38.6 % Invalid Interpretation Code 10.0 - 50.0 % AO Workflow SS MCH (RBC) [Entitic mass] 31.2 pg Invalid Interpretation Code 27.0 - 31.2 pg AO Workflow SS MCHC 34.0 G/dL Invalid Interpretation Code 31.8 - 35.4 G/dL AO Workflow SS MCV (RBC) [Entitic vol] 91.8 fL Invalid Interpretation Code 80.0 - 94.0 fL AO Workflow SS Monocyte distribution width Auto (Bld) [Entitic vol] 14.86 Invalid Interpretation Code 0.00 - 20.00 AO Workflow SS Comment on above: Result Comment: For ED adult patients suspected of sepsis, MDW<=20.0 does not rule out sepsis or risk of sepsis Monocyte, Absolute 0.7 103/mcL Invalid Interpretation Code 0.2 - 1.0 10^3/mcL AO Workflow SS Monocytes/100 WBC (Bld) 10.4 % Invalid Interpretation Code 1.7 - 13.0 % AO Workflow SS Neutrophil, Absolute 3.1 103/mcL Invalid Interpretation Code 2.9 - 6.2 10^3/mcL AO Workflow SS Neutrophils/100 WBC (Bld) 49.6 % Invalid Interpretation Code 37.0 - 80.0 % AO Workflow SS Platelet mean volume (Bld) [Entitic vol] 8.8 fL Invalid Interpretation Code 7.4 - 10.4 fL AO Workflow SS Platelets (Bld) [#/Vol] 199 103/mcL Invalid Interpretation Code 130 - 400 10^3/mcL AO Workflow SS RBC (Bld) [#/Vol] 4.83 106/mcL Invalid Interpretation Code 4.04 - 6.13 10^6/mcL AO Workflow SS WBC (Bld) [#/Vol] 6.3 103/mcL Invalid Interpretation Code 4.6 - 10.8 10^3/mcL AO Workflow SS LABORATORYOrdered By: SYSTEM SYSTEM on 05-27-2023 Calcium [Mass/Vol] 9.5 mg/dL Invalid Interpretation Code 8.4 - 10.2 mg/dL AO ADM SS Chloride [Moles/Vol] 103 mmol/L Invalid Interpretation Code 98 - 107 mmol/L AO ADM SS CO2 [Moles/Vol] 27 mmol/L Invalid Interpretation Code 23 - 31 mmol/L AO ADM SS Creatinine [Mass/Vol] 1.14 mg/dL Invalid Interpretation Code 0.70 - 1.30 mg/dL AO ADM SS Electrolyte Balance 10.0 mEq/L Invalid Interpretation Code 4.0 - 15.0 mEq/L AO ADM SS GFR/1.73 sq M.predicted among blacks MDRD (S/P/Bld) [Vol rate/Area] 77 ml/min/1.73sqm Invalid Interpretation Code AO Chemistry S GFR/1.73 sq M.predicted among non-blacks MDRD (S/P/Bld) [Vol rate/Area] 64 ml/min/1.73sqm Invalid Interpretation Code AO Chemistry S Glucose [Mass/Vol] 103 mg/dL Invalid Interpretation Code 80 - 115 mg/dL AO ADM SS Natriuretic peptide.B prohormone N-Terminal [Mass/Vol] 27 pg/mL Invalid Interpretation Code 0 - 125 pg/mL AO ADM SS Potassium [Moles/Vol] 4.0 mmol/L Invalid Interpretation Code 3.5 - 5.1 mmol/L AO ADM SS Sodium [Moles/Vol] 140 mmol/L Invalid Interpretation Code 136 - 145 mmol/L AO ADM SS Troponin I.cardiac DL <= 0.01 ng/mL [Mass/Vol] 8.5 ng/L Invalid Interpretation Code 0.0 - 76.2 ng/L AO ADM SS Urea nitrogen [Mass/Vol] 20 mg/dL Invalid Interpretation Code 7 - 18 mg/dL AO ADM SS Urea nitrogen/Creatinine [Mass ratio] 18 ratio Invalid Interpretation Code 7 - 27 ratio AO ADM SS LABORATORYOrdered By: SYSTEM SYSTEM on 05-24-2023 Calcium [Mass/Vol] 9.7 mg/dL Invalid Interpretation Code 8.4 - 10.2 mg/dL AO ADM SS Chloride [Moles/Vol] 104 mmol/L Invalid Interpretation Code 98 - 107 mmol/L AO ADM SS CO2 [Moles/Vol] 29 mmol/L Invalid Interpretation Code 23 - 31 mmol/L AO ADM SS Creatinine [Mass/Vol] 1.16 mg/dL Invalid Interpretation Code 0.70 - 1.30 mg/dL AO ADM SS Electrolyte Balance 8.0 mEq/L Invalid Interpretation Code 4.0 - 15.0 mEq/L AO ADM SS GFR/1.73 sq M.predicted among blacks MDRD (S/P/Bld) [Vol rate/Area] 76 ml/min/1.73sqm Invalid Interpretation Code AO Chemistry S GFR/1.73 sq M.predicted among non-blacks MDRD (S/P/Bld) [Vol rate/Area] 62 ml/min/1.73sqm Invalid Interpretation Code AO Chemistry S Glucose [Mass/Vol] 113 mg/dL Invalid Interpretation Code 80 - 115 mg/dL AO ADM SS Potassium [Moles/Vol] 5.0 mmol/L Invalid Interpretation Code 3.5 - 5.1 mmol/L AO ADM SS Sodium [Moles/Vol] 141 mmol/L Invalid Interpretation Code 136 - 145 mmol/L AO ADM SS Urea nitrogen [Mass/Vol] 21 mg/dL Invalid Interpretation Code 7 - 18 mg/dL AO ADM SS Urea nitrogen/Creatinine [Mass ratio] 18 ratio Invalid Interpretation Code 7 - 27 ratio AO ADM SS LABORATORYOrdered By: Bebe Cuevas on 10-16-2022 Albumin BCP dye [Mass/Vol] 4.1 G/dL Invalid Interpretation Code 3.4 - 4.8 G/dL AO ADM SS Albumin/Globulin [Mass ratio] 1.6 {ratio} Invalid Interpretation Code 1.1 - 2.5 ratio AO ADM SS ALP [Catalytic activity/Vol] 65 U/L Invalid Interpretation Code 40 - 135 U/L AO ADM SS ALT With P-5'-P [Catalytic activity/Vol] 30 U/L Invalid Interpretation Code 16 - 63 U/L AO ADM SS AST With P-5'-P [Catalytic activity/Vol] 27 U/L Invalid Interpretation Code 10 - 40 U/L AO ADM SS Bilirubin [Mass/Vol] 0.6 mg/dL Invalid Interpretation Code 0.2 - 1.0 mg/dL AO ADM SS Calcium [Mass/Vol] 9.4 mg/dL Invalid Interpretation Code 8.4 - 10.2 mg/dL AO ADM SS Chloride [Moles/Vol] 105 mmol/L Invalid Interpretation Code 98 - 107 mmol/L AO ADM SS Cholesterol [Mass/Vol] 205 mg/dL Invalid Interpretation Code 0 - 200 mg/dL AO ADM SS Cholesterol in HDL [Mass/Vol] 42 mg/dL Invalid Interpretation Code 40 - 60 mg/dL AO ADM SS Cholesterol in LDL [Mass/Vol] 141 mg/dL Invalid Interpretation Code 0 - 130 mg/dL AO ADM SS CO2 [Moles/Vol] 28 mmol/L Invalid Interpretation Code 23 - 31 mmol/L AO ADM SS Creatinine [Mass/Vol] 0.99 mg/dL Invalid Interpretation Code 0.70 - 1.30 mg/dL AO ADM SS Electrolyte Balance 7.0 mEq/L Invalid Interpretation Code 4.0 - 15.0 mEq/L AO ADM SS Free T4 [Mass/Vol] 0.91 ng/dL Invalid Interpretation Code 0.76 - 1.46 ng/dL AO ADM SS Globulin 2.6 G/dL Invalid Interpretation Code AO ADM SS Glucose [Mass/Vol] 101 mg/dL Invalid Interpretation Code 80 - 115 mg/dL AO ADM SS HbA1c (Bld) [Mass fraction] 5.8 % Invalid Interpretation Code 4.3 - 6.4 % AO ADM SS Potassium [Moles/Vol] 4.5 mmol/L Invalid Interpretation Code 3.5 - 5.1 mmol/L AO ADM SS Prostate specific Ag [Mass/Vol] 1.47 ng/mL Invalid Interpretation Code 0.00 - 4.00 ng/mL AO ADM SS Protein [Mass/Vol] 6.7 G/dL Invalid Interpretation Code 6.4 - 8.2 G/dL AO ADM SS Sodium [Moles/Vol] 140 mmol/L Invalid Interpretation Code 136 - 145 mmol/L AO ADM SS Triglyceride [Mass/Vol] 109 mg/dL Invalid Interpretation Code 0 - 150 mg/dL AO ADM SS TSH Qn 0.79 m[IU]/L Invalid Interpretation Code 0.36 - 3.74 mcIU/mL AO ADM SS Urea nitrogen [Mass/Vol] 15 mg/dL Invalid Interpretation Code 7 - 18 mg/dL AO ADM SS Urea nitrogen/Creatinine [Mass ratio] 15 ratio Invalid Interpretation Code 7 - 27 ratio AO ADM SS LABORATORYOrdered By: Kiersten Fernandes on 10-16-2022 Basophil, Absolute 0.0 103/mcL Invalid Interpretation Code 0.0 - 0.2 10^3/mcL AO Workflow SS Basophils/100 WBC (Bld) 0.6 % Invalid Interpretation Code 0.0 - 2.5 % AO Workflow SS Eosinophil, Absolute 0.1 103/mcL Invalid Interpretation Code 0.0 - 0.4 10^3/mcL AO Workflow SS Eosinophils/100 WBC (Bld) 1.2 % Invalid Interpretation Code 0.0 - 7.0 % AO Workflow SS Erythrocyte distribution width (RBC) [Ratio] 13.4 % Invalid Interpretation Code 11.5 - 14.5 % AO Workflow SS Hematocrit (Bld) [Volume fraction] 43.8 % Invalid Interpretation Code 42.0 - 52.0 % AO Workflow SS Hemoglobin (Bld) [Mass/Vol] 14.8 G/dL Invalid Interpretation Code 14.0 - 18.0 G/dL AO Workflow SS Lymphocyte, Absolute 2.2 103/mcL Invalid Interpretation Code 0.8 - 3.9 10^3/mcL AO Workflow SS Lymphocytes/100 WBC (Bld) 41.0 % Invalid Interpretation Code 10.0 - 50.0 % AO Workflow SS MCH (RBC) [Entitic mass] 31.4 pg Invalid Interpretation Code 27.0 - 31.2 pg AO Workflow SS MCHC 33.9 G/dL Invalid Interpretation Code 31.8 - 35.4 G/dL AO Workflow SS MCV (RBC) [Entitic vol] 92.7 fL Invalid Interpretation Code 80.0 - 94.0 fL AO Workflow SS Monocyte, Absolute 0.6 103/mcL Invalid Interpretation Code 0.2 - 1.0 10^3/mcL AO Workflow SS Monocytes/100 WBC (Bld) 10.6 % Invalid Interpretation Code 1.7 - 13.0 % AO Workflow SS Neutrophil, Absolute 2.5 103/mcL Invalid Interpretation Code 2.9 - 6.2 10^3/mcL AO Workflow SS Neutrophils/100 WBC (Bld) 46.6 % Invalid Interpretation Code 37.0 - 80.0 % AO Workflow SS Platelet mean volume (Bld) [Entitic vol] 8.8 fL Invalid Interpretation Code 7.4 - 10.4 fL AO Workflow SS Platelets (Bld) [#/Vol] 204 103/mcL Invalid Interpretation Code 130 - 400 10^3/mcL AO Workflow SS RBC (Bld) [#/Vol] 4.72 106/mcL Invalid Interpretation Code 4.04 - 6.13 10^6/mcL AO Workflow SS WBC (Bld) [#/Vol] 5.3 103/mcL Invalid Interpretation Code 4.6 - 10.8 10^3/mcL AO Workflow SS LABORATORYOrdered By: SYSTEM SYSTEM on 10-16-2022 GFR 91 ml/min/1.73sqm Invalid Interpretation Code AO Chemistry S GFR Non- 75 ml/min/1.73sqm Invalid Interpretation Code AO Chemistry S LABORATORYOrdered By: Suzy Hooker on 10-16-2022 HCV Ab IA Ql Non-Reactive (10/16/22 10:04 AM) Invalid Interpretation Code Non-Reactive ADM SS HCV Ab IA Ql Nonreactive: Samples with a value < 0.80 are considered nonreactive (negative) for antibodies to HCV.A negative test result does not exclude the possibility of exposure to or infection with HCV. HCV antibodies may be undetectable in some stages of the infection and in some clinical conditions. Invalid Interpretation Code Chemistry S LABORATORYOrdered By: VERENICE MEJIA CONTRIBUTOR_SYSTEM on 10-16-2022 LDL Cholesterol Direct 141 mg/dL Invalid Interpretation Code <100mg/dL AO Sendouts SS Comment on above: Result Comment: <100 mg/dL, Optimal 100-129 mg/dL, Near optimal/above optimal 130-159 mg/dL, Borderline high 160-189 mg/dL, High >189 mg/dL, Very high Secondary prevention optimal LDL Cholesterol levels are recommended to be < 70 mg/dL Performed By: [facility] [employer] [place] [address] Flame Gouger: Ancelmo Brown III, M.D. CLIA#: [id number] VLDL Cholesterol See Below Invalid Interpretation Code AO Sendouts SS Comment on above: Result Comment: Test not indicated. Performed By: [facility] [address] [id number] Flame Gouger: Ancelmo Brown III, M.D. CLIA#: [id number] No Panel Informationon 11-21 Culture Urine <10,000 cfu/ml. No Significant growth. Sensitivity not indicated. [facility] No Panel Informationon 09-21 Culture Urine 50,000 - 100,000 cfu /ml Multiple bacterial morphotypes present. Probable Contamination. Suggest recollection if clinically indicated. [facility] Vital Signs Date Time Vital Sign Value Performing Clinician Mehnaz villalba 06-09-2023 21:22-0400 Diastolic Blood Pressure Non-Invasive [address] DARCY ERAZO MD [facility] 06-09-2023 21:22-0400 Heart rate 88 /min DR DARCY ERAZO MD [facility] 06-09-2023 21:22-0400 Respiratory rate 18 /min DR DARCY ERAZO MD [facility] 06-09-2023 21:22-0400 Systolic Blood Pressure Non-Invasive [address] DARCY ERAZO MD [facility] 06-09-2023 18:31-0400 Diastolic Blood Pressure Non-Invasive [address] DARCY ERAZO MD [facility] 06-09-2023 18:31-0400 Heart rate 76 /min DR DARCY ERAZO MD [facility] 06-09-2023 18:31-0400 Respiratory rate 16 /min DR DARCY ERAZO MD [facility] 06-09-2023 18:31-0400 Systolic Blood Pressure Non-Invasive [address] DARCY ERAZO MD [facility] 06-09-2023 16:57-0400 Body temperature 98.06 [degF] DR DARCY ERAZO MD [facility] 06-09-2023 16:57-0400 Body weight 91.[address] DARCY ERAZO MD [facility] 06-09-2023 16:57-0400 Diastolic Blood Pressure Non-Invasive [address] DARCY ERAZO MD [facility] 06-09-2023 16:57-0400 Heart rate 81 /min DR DARCY ERAZO MD [facility] 06-09-2023 16:57-0400 Respiratory rate 16 /min DR DARCY ERAZO MD [facility] 06-09-2023 16:57-0400 Systolic Blood Pressure Non-Invasive [address] DARCY ERAZO MD [facility] 05-27-2023 04:42-0400 Diastolic Blood Pressure Non-Invasive 104 1 BLAKE COPE MD [facility] 05-27-2023 04:42-0400 Heart rate 83 /min BLAKE COPE MD [facility] 05-27-2023 04:42-0400 Systolic Blood Pressure Non-Invasive 135 1 BLAKE COPE MD [facility] 05-27-2023 03:43-0400 Diastolic Blood Pressure Non-Invasive 104 1 BLAKE COPE MD [facility] 05-27-2023 03:43-0400 Systolic Blood Pressure Non-Invasive 155 1 BLAKE COPE MD [facility] 05-27-2023 03:18-0400 Blood Pressure Cuff Size BLAKE COPE MD [facility] 05-27-2023 03:18-0400 Blood Pressure Location BLAKE COPE MD [facility] 05-27-2023 03:18-0400 Blood Pressure Method BLAKE COPE MD [facility] 05-27-2023 03:18-0400 Body height 177.8 cm BLAKE COPE MD [facility] 05-27-2023 03:18-0400 Body temperature 98.42 [degF] BLAKE COPE MD [facility] 05-27-2023 03:18-0400 Body weight 92.7 kg BLAKE COPE MD [facility] 05-27-2023 03:18-0400 Diastolic Blood Pressure Non-Invasive 111 1 BLAKE COPE MD [facility] 05-27-2023 03:18-0400 Heart rate 88 /min BLAKE COPE MD [facility] 05-27-2023 03:18-0400 Reason For Taking VItal Signs BLAKE COPE MD [facility] 05-27-2023 03:18-0400 Respiratory rate 18 /min BLAKE COPE MD [facility] 05-27-2023 03:18-0400 Systolic Blood Pressure Non-Invasive 177 1 BLAKE COPE MD [facility] Encounters Encounter Date Encounter Type Care Provider Facility Start: 04-19-2025 End: 04-19-2025 ambulatory Thiago Lopez Facility:[facility] Start: 03-31-2025 End: 03-31-2025 ambulatory Navjot Del Valle Facility:[facility] Start: 03-17-2025 End: 03-17-2025 ambulatory Thiago Lopez Facility:[facility] [place] Start: 01-19-2025 End: 01-19-2025 ambulatory THIAGO LOPEZ Facility[facility] Start: 01-19-2025 End: 01-19-2025 Patient encounter procedure THIAGO E LOPEZ DO [facility] Start: 01-07-2025 ambulatory THIAGO E LOPEZ DO Faci lity:A Start: 01-05-2025 End: 01-05-2025 ambulatory THIAGO E LOPEZ DO Facility:A Start: 01-05-2025 End: 01-05-2025 Patient encounter procedure KARLA WHALEY LONG TERM-[facility] Start: 12-23-2024 End: 12-23-2024 ambulatory KARLA WHALEY LONG TER[employer] Facility:[facility] Start: 12-23-2024 End: 12-23-2024 Patient encounter procedure KARLA WHALEY LONG TERM-TYPE CUTTER [facility] Start: 12-09-2024 End: 12-09-2024 ambulatory THIAGO E LOPEZ DO Facility:[facility] Start: 12-09-2024 End: 12-09-2024 Patient encounter procedure RUTH ANN JONES MD [facility] Start: 07-01-2024 End: 07-01-2024 ambulatory RUTH ANN JONES MD Facility:[facility] Start: 03-04-2024 End: 04-09-2024 ambulatory THIAGO LOPEZ DO Facility:[facility] Start: 03-04-2024 End: 04-09-2024 Physical therapy management BRIDGET PAGAN DO [facility] Start: 01-26-2024 End: 01-26-2024 ambulatory THIAGO E LOPEZ DO Facility:[facility] Start: 01-05-2024 End: 01-05-2024 ambulatory THIAGO E LOPEZ DO Facility:[facility] Start: 01-05-2024 End: 01-05-2024 Patient encounter procedure KARLA WHALEY LONG TERM-TYPE C[employer]TER [facility] Start: 01-01-2024 End: 01-01-2024 ambulatory THIAGO LOPEZ DO Facility:[facility] Start: 12-16-2023 End: 12-16-2023 ambulatory THIAGO LOPEZ DO Facility:[facility] Start: 12-16-2023 End: 12-16-2023 Patient encounter procedure THIAGO LOPEZ DO [facility] Start: 12-16-2023 ambulatory THIAGO LOPEZ DO Faci lity:B Start: 12-16-2023 End: 12-20-2023 Outreach Lab THIAGO LOPEZ DO [facility] Start: 11-14-2023 End: 11-18-2023 ambulatory RICH MÉNDEZ LONG TERM - TYPE CUTTER Facility:[facility] Start: 11-04-2023 ambulatory THIAGO LPOEZ DO Faci lity:A Start: 10-27-2023 End: 10-27-2023 ambulatory RUTH ANN JONES MD Facility:[facility] Start: 09-19-2023 End: 09-19-2023 ambulatory THIAGO LOPEZ DO Facility:[facility] Start: 09-19-2023 End: 09-19-2023 [facility] Start: 09-15-2023 End: 09-16-2023 ambulatory TIHAGO LOPEZ DO Facility:[facility] Start: 09-15-2023 End: 09-16-2023 Patient encounter procedure FRANTZ JESSICA DO [facility] Start: 09-02-2023 End: 09-02-2023 ambulatory THAIGO LOPEZ DO Facility:[facility] Start: 09-02-2023 End: 09-02-2023 Patient encounter procedure THIAGO LOEPZ DO [facility] Start: 08-28-2023 End: 08-28-2023 ambulatory THIAGO LOPEZ DO Facility:[facility] Start: 08-22-[address] Ruth Ann Jones Fa cility:[id number] Start: 08-12-2023 End: 08-12-2023 ambulatory THIAGO Uriel LOPEZ DO Facility:[facility] Start: 08-12-2023 End: 08-12-2023 Patient encounter procedure KARLA WHALEY LONG TERM-TYPE CUTTER [facility] Start: 07-31-2023 End: 07-31-2023 ambulatory THIAGO Uriel LOPEZ Facility:[facility] Start: 07-31-2023 End: 07-31-2023 Patient encounter procedure KARLA WHALEY LONG TERM-TYPE CUTTER [facility] Start: 07-26-2023 End: 07-30-2023 ambulatory CARLTON LOBATO LONG TERM-TYPE CUTTER Facility:B Start: 07-26-2023 End: 07-30-2023 Outreach Lab CARLTON LOBATO LONG TERM-TYPE CUTTER [facility] Start: 07-24-2023 End: 07-24-2023 ambulatory THIAGO LOPEZ DO Facility:B Start: 07-24-2023 End: 07-24-2023 Patient encounter procedure THIAGO Uriel OLPEZ DO [facility] Start: 07-01-2023 End: 07-01-2023 Patient encounter procedure KARLA Gage WHALEY LONG TERM-TYPE CUTTER [facility] Start: 06-09-2023 End: 06-09-2023 Emergency department patient visit DR DARCY ERAZO MD [facility] Start: 05-27-2023 End: 05-27-2023 Emergency department patient visit BLAKE COPE MD [facility] Start: 05-24-2023 End: 05-24-[address] BALTAZAR OREILLY DO [facility] Start: 01-24-2023 End: 01-24-2023 Patient encounter procedure KARLA WHALEY LONG TERM-TYPE CUTTER [facility] Start: 10-16-2022 End: 10-16-2022 Patient encounter procedure THIAGO LOPEZ DO [facility] Start: 01-22-2022 End: 01-22-2022 Patient encounter procedure KARLA WHALEY LONG TERM-TYPE CUTTER [facility] Start: 01-01-2022 End: 01-01-2022 Patient encounter procedure KARLA WHALEY LONG TERM-TYPE CUTTER [facility] Start: 11-21-2021 End: 11-25-2021 Outreach Lab ROSA WEINBERG MD [facility] Start: 09-21-2021 End: 09-25-2021 Outreach Lab PERLITAARTIE LONG TERM-TYPE CUTTER [facility] Procedures Date Procedure Procedure Detail Performing Clinician Colonoscopy BRIDGET Camargo Nose excision KARLA Reynoso LONG TERM-TYPE CUTTER Tonsillectomy KARLA Reynoso LONG TERM-TYPE CUTTER Immunizations Immunization Date Immunization Notes Care Provider [facility] 10-04-2024 influenza virus vaccine, unspecified formulation RUTH ANN JONES MD [facility] 06-15-2024 zoster vaccine recombinant RUTH ANN JONES MD [facility] 10-07-2023 zoster vaccine recombinant THIAGO LOPEZ DO [facility] 10-02-2023 tetanus toxoid, redu josé miguel diphtheria toxoid, and acellular pertussis vaccine, adsorbed; Translations: [Boostrix (Tdap)] THIAGO LOPEZ DO [facility] 08-15-2023 influenza virus vaccine, unspecified formulation FRANTZ ARACELY DO [facility] 09-03-2022 influenza virus vaccine, unspecified formulation THIAGO LOPEZ DO [facility] 09-07-2021 SARS-CoV-2 mRNA (tozinameran) vaccine ROSA WEINBERG MD [facility] Comment on above: Result Comment: 2020: [id number] 08-09-2021 influenza virus vaccine, unspecified formulation ROSA WEINBERG MD [facility] 02-14-2021 SARS-CoV-2 mRNA (tozinameran) vaccine ROSA WEINBERG MD [facility] 01-25-2021 SARS-CoV-2 mRNA (tozinameran) vaccine ROSA WEINBERG MD [facility] Comment on above: Result Comment: 2020: [id number] 08-22-2020 influenza virus vaccine, unspecified formulation CARLTON LOBATO APRN-TYPE CUTTER [facility] Comment on above: Result Comment: [facility] 09-16-2018 influenza virus vaccine, unspecified formulation ROSA WEINBERG MD [facility] 09-26-2017 influenza virus vaccine, unspecified formulation ROSA WEINBERG MD [facility] 08-31-2017 influenza virus vaccine, unspecified formulation ROSA WEINBERG MD [facility] 10-12-2015 influenza virus vaccine, unspecified formulation ROSA WEINBERG MD [facility] 12-26-2014 tetanus toxoid, redu josé miguel diphtheria toxoid, and acellular pertussis vaccine, adsorbed ROSA WEINBERG MD [facility] 09-14-2014 influenza virus vaccine, unspecified formulation ROSA WEINBERG MD [facility] 10-12-2013 influenza virus vaccine, unspecified formulation ROSA WEINBERG MD [facility] 11-09-2012 influenza virus vaccine, unspecified formulation ROSA WEINBERG MD [facility] Payers Date Payer Category Payer Self-pay 2023 Private Health Insurance [id number] 2023 Private Health Insurance [id number] 1954 Unknown [id number] 2.16.8 40.1.567870.3.579.2. 1954 Unknown [id number] 2.16.8 40.1.564406.3.579.2. 1954 Unknown [id number] 2.16.8 40.1.372232.3.579.2. 1954 Unknown [id number] 2.16.8 40.1.056067.3.579.2. 1954 Unknown [id number] 2.16.8 40.1.457620.3.579.2. 1954 Unknown [id number] 2.16.8 40.1.004045.3.579.2. 1954 Unknown [id number] 2.16.8 40.1.087562.3.579.2. 1954 Unknown [id number] 2.16.8 40.1.385459.3.579.2. 1954 Unknown [id number] 2.16.8 40.1.918731.3.579.2. 1954 Unknown [id number] 2.16.8 40.1.563163.3.579.2. 1954 Unknown [id number] 2.16.8 40.1.310464.3.579.2. 1954 Unknown [id number] 2.16.8 40.1.973958.3.579.2. 1954 Unknown [id number] 2.16.8 40.1.318171.3.579.2. 1954 Unknown [id number] 2.16.8 40.1.004833.3.579.2. 1954 Unknown [id number] 2.16.8 40.1.099266.3.579.2. 1954 Unknown [id number] 2.16.8 40.1.549215.3.579.2. 1954 Unknown [id number] 2.16.8 40.1.621423.3.579.2.62 1954 Unknown [id number] 2.16.8 40.1.672759.3.579.2. 1954 Unknown [id number] 2.16.8 40.1.154260.3.579.2. 1954 Unknown [id number] 2.16.8 40.1.238906.3.579.2. 1954 Unknown [id number] 2.16.8 40.1.044722.3.579.2. 1954 Unknown [id number] 2.16.8 40.1.280388.3.579.2. 1954 Unknown [id number] 2.16.8 40.1.474983.3.579.2. 1954 Unknown [id number] 2.16.8 40.1.835514.3.579.2. 1954 Unknown [id number] 2.16.8 40.1.444557.3.579.2. 1954 Unknown [id number] 2.16.8 40.1.243619.3.579.2.1069 Unknown [id number] Unknown [id number] 2.16.8 40.1.854205.3.579.2.462 Unknown [id number] 2.16.8 40.1.007656.3.579.2.462 Unknown [id number] 2.16.8 40.1.036983.3.579.2.462 Unknown [id number] 2.16.8 40.1.088474.3.579.2.462 Social History Date Type Detail Facility Start: 10-06-2020 End: 11-14-2023 Ex-smoker (finding) [facility] Sex Assigned At Male [facility] Sexual Orientation Wesley Scott hendrickson [facility] Start: 05-26-2019 Sex Male (finding) [facility] Functional Status Date Assessment Result Facility 03-04-2024 Functional Status Home Living Ad ditional Information Objective: Observation: Flexed trunk posture Trunk ROM: Flex: min loss ERP, PPT: reduced pain. Cardiovascular screen: BP: 118/80, O2 sat: 97% HR: 67 bpm Sensation: Grossly intact and symmetrical light touch bilat LE's Reflexes: Quads R: 2+ L: 2+ Achilles R: 2+ L: 2+ Gait: flexed posture with decreased stride length Mild excess pronation on R Flexibility: Hip ROM WFL Special Tests: Slump: + bilat Hoffmans and [facility] 06-09-2023 Functional Status Independent [facility] 06-09-2023 Functional Status Ambulating in davis, Up to bathroom [facility] 06-09-2023 Functional Status Standard Safet y ID band on, Call device within reach, Bed in low position, Wheels locked [facility] 05-27-2023 Functional Status Independent [facility] 05-27-2023 Functional Status Ambulating in davis, Ambulating in room, Awake, Bathroom privileges [facility] Mental Status Date Assessment Result Facility 06-09-2023 Mental Status Orientation Oriented x 4 [facility] 06-09-2023 Mental Status [facility] 05-27-2023 Mental Status Orientation Oriented x 4 [facility] 05-27-2023 Mental Status [facility] Clinical Notes 12-21-2020 to 01-19-2025 Note Date & Type Note Facility 01-19-2025 Note Exam Date Time Procedure Performing Provider Status 01/19/25 11:43 AM BD Bone Density DEXA Axial Skeleton ASHLEY CHACON MD; Auth (Verified) [id number] ORIGINAL EXAMINATION: BONE DENSITOMETRY01/19/2025 11:43 am TECHNIQUE: Dual energy bone densitometry lumbar spine and left hip. COMPARISON: None HISTORY: Reason for Exam: Osteoporosis Screening FINDINGS: L1-L4: BMD= 1.228 g/cm2 T score= 1.2 Left femoral neck: BMD= 0.850 g/cm2 T score= -0.6 Left hip: BMD= 1.022 g/cm2 T score= -0.1 FRAX score: 10 year risk major osteoporotic fracture 4.9 %. 10 year risk hip fracture 0.6 %. The OF f/k/a NOF recommends that FDA-approved medical therapies be considered in post-menopausal women and men age >/= 50 years with a: * Hip or vertebral fracture, or * T-score of /= 20% for major osteoporotic fractures or * >/= 3% for hip fractures All treatment decisions require clinical judgement and consideration of individual patient factors, including patient preferences, comorbidities, previous drug use, risk factors not captured in the FRAX registered model (e.g., frailty, falls, vitamin D deficiency, increased bone turnover, interval significant decline in bone density) and possible under- or over-estimation of fracture risk by FRAX. IMPRESSION: Normal bone mineral density. Interpreted by: Ashley Chacon MD Preliminary Report By: Ashley Chacon MD Electronically signed By Ashley Chacon MD Dictated Date: 01/19/2025 12:10:27 PM Prelim Date: 01/19/2025 12:11:37 PM Sign Date: 01/19/2025 12:11:37 PM Ordering Provider: [place] [id number] Note. MICRO - Microbiology PROCEDURE: Urine Culture [*1] SOURCE: Urine, Clean Catch BODY SITE: COLLECTED DATE/TIME: 12/16/2023 17:47 EST RECEIVED DATE/TIME: 12/17/2023 15:48 EST START DATE/TIME: 12/17/2023 15:48 EST FREE TEXT SOURCE: FINAL REPORTS Final Report [] Verified Date/Time/Personnel: 12/19/2023 08:00 EST No growth at 48 hours. PRELIMINARY REPORTS Preliminary Report [] Verified Date/Time/Personnel: 12/18/2023 09:46 EST No growth to date Performing Locations *1: This test was performed at: [address], [address] [place] [address] ([place])11-16-2023 Note. MICRO - Microbiology PROCEDURE: Urine Culture [*1] SOURCE: Urine, Clean Catch BODY SITE: COLLECTED DATE/TIME: 11/14/2023 16:26 EST RECEIVED DATE/TIME: 11/14/2023 19:11 EST START DATE/TIME: 11/14/2023 19:11 EST FREE TEXT SOURCE: FINAL REPORTS Final Report [] Verified Date/Time/Personnel: 11/16/2023 09:01 EST >100,000 cfu/ml Escherichia coli PRELIMINARY REPORTS Preliminary Report [] Verified Date/Time/Personnel: 11/15/2023 14:07 EST >100,000 cfu/ml Escherichia coli MARIE to follow SUSCEPTIBILITY RESULTS Escherichia coli Antibiotic MARIE Dilut MARIE Inter Ampicillin <=8 Susceptible Ampicillin/ <=4/2 Susceptible Sulbactam Aztreonam <=4 Susceptible Cefazolin <=2 Susceptible Ciprofloxacin <=0.25 Susceptible Ertapenem <=0.5 Susceptible Gentamicin <=2 Susceptible ID Panel Not Not Applicable Applicable Imipenem <=1 Susceptible Levofloxacin <=0.5 Susceptible Meropenem <=1 Susceptible Minocycline <=4 Susceptible Nitrofurantoin <=32 Susceptible Trimethoprim/ <=0.5/9.5 Susceptible Sulfa Performing Locations *1: This test was performed at: [address], [address] [place] [place] [address] ([place])09-22-2023 Note. MICRO - Microbiology PROCEDURE: Urine Culture [*1] SOURCE: Urine, Clean Catch BODY SITE: COLLECTED DATE/TIME: 09/19/2023 16:22 EDT RECEIVED DATE/TIME: 09/19/2023 19:01 EDT START DATE/TIME: 09/19/2023 19:01 EDT FREE TEXT SOURCE: FINAL REPORTS Final Report [] Verified Date/Time/Personnel: 09/22/2023 08:02 EDT >100,000 cfu/ml Escherichia coli 10,000 - 50,000 cfu/ml Presumptive Group D Enterococcus Sensitivity testing not indicated. PRELIMINARY REPORTS Preliminary Report [] Verified Date/Time/Personnel: 09/21/2023 08:29 EDT >100,000 cfu/ml Escherichia coli MARIE to follow 10,000 - 50,000 cfu/ml Presumptive Group D Enterococcus Sensitivity testing not indicated. Preliminary Report [] Verified Date/Time/Personnel: 09/20/2023 13:28 EDT Culture results pending. SUSCEPTIBILITY RESULTS Escherichia coli Antibiotic MARIE Dilut MARIE Inter Ampicillin <=8 Susceptible Ampicillin/ <=4/2 Susceptible Sulbactam Aztreonam <=4 Susceptible Cefazolin <=2 Susceptible Ciprofloxacin <=0.25 Susceptible Ertapenem <=0.5 Susceptible Gentamicin <=2 Susceptible Imipenem <=1 Susceptible Levofloxacin <=0.5 Susceptible Meropenem <=1 Susceptible Minocycline <=4 Susceptible Nitrofurantoin <=32 Susceptible Trimethoprim/ <=0.5/9.5 Susceptible Sulfa Performing Locations *1: This test was performed at: [address], [address] [place], [place] [address]50609-04-2023 Note. MICRO - Microbiology PROCEDURE: Urine Culture [*1] SOURCE: Urine, Clean Catch BODY SITE: COLLECTED DATE/TIME: 09/02/2023 11:41 EDT RECEIVED DATE/TIME: 09/02/2023 19:36 EDT START DATE/TIME: 09/02/2023 19:36 EDT FREE TEXT SOURCE: FINAL REPORTS Final Report [] Verified Date/Time/Personnel: 09/04/2023 07:27 EDT No growth at 48 hours. PRELIMINARY REPORTS Preliminary Report [] Verified Date/Time/Personnel: 09/03/2023 10:26 EDT No growth to date Performing Locations *1: This test was performed at: [address], [address] [place], [place] [address]50608-12-2023 Note ORIGINAL HISTORY: Pain, history of prostatitis COMPARISON: No TECHNIQUE: CT of the Abdomen and Pelvis following uncomplicated administration of intravenous contrast, with sagittal and coronal reconstructions. This exam was performed according to our departmental dose optimization program, and includes the following measures where applicable: automated exposure control, adjustment of the mAs and/or kVp according to patient size and/or exam, and an iterative reconstruction algorithm. FINDINGS: There is a subcentimeter hypodensity in the liver, too small to characterize further. The abdominal organs are otherwise unremarkable in appearance. Bowel is poorly evaluated in the absence of oral contrast. The appendix is not identified. There are a few small calcifications in the prostate gland; prostate gland is otherwise unremarkable. There is no pelvic or inguinal lymphadenopathy. There is no free fluid. IMPRESSION: Unremarkable examination. Interpreted by: Blas Viramontes MD Preliminary Report By: Blas Viramontes MD Electronically signed By Blas Viramontes MD Dictated Date: 08/12/2023 1:25:17 PM Prelim Date: 08/12/2023 1:28:14 PM Sign Date: 08/12/2023 1:28:14 PM Ordering Provider: [facility]08-28-2023 Note. MICRO - Microbiology PROCEDURE: Urine Culture [*1] SOURCE: Urine, Clean Catch BODY SITE: COLLECTED DATE/TIME: 07/26/2023 10:27 EDT RECEIVED DATE/TIME: 07/26/2023 17:40 EDT START DATE/TIME: 07/26/2023 17:40 EDT FREE TEXT SOURCE: FINAL REPORTS Final Report [] Verified Date/Time/Personnel: 07/28/2023 07:13 EDT No growth at 48 hours. PRELIMINARY REPORTS Preliminary Report [] Verified Date/Time/Personnel: 07/27/2023 12:51 EDT No growth to date Performing Locations *1: This test was performed at: [facility], [address] [place] [address], [id number] , [facility] ([place])06-09-2023 Note Discharge Instructions Thank you for allowing [facility] to assist you with your healthcare needs. The following is importantdischarge information regarding your hospital visit. Diagnosis from Today's Visit Anxiety Hypertension Anxiety What to Do Next Instructions from Your Care Team Follow-up with your primary care provider. We did discuss admission for further work-up including possible stress test however you have declined. You were informed of potential risk including but notlimited to missed diagnosis, delay to diagnosis, cannot rule out significant cardiac abnormality occluding heart attack, and possible . Return to the emergency department if you experience worsening symptoms or any other care concern. No qualifying data available. Post Acute Orders No qualifying data available. 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 What How Much When Why Instructions Last Dose Unchanged ALPRAZolam (Xanax 0.25 mg oral tablet) 1 tab(s) by mouth Once a day Generalized anxiety disorder with panic attacks Reactive hypertension Duration: 30 Days Unchanged diphenhydramine-ibuprofen (Advil PM) 2 tab(s) by mouth Daily at bedtime Unchanged escitalopram (escitalopram 5 mg oral tablet) 1 tab(s) by mouth Once a day Unchanged ezetimibe (Zetia 10 mg oral tablet) 1 tab(s) by mouth Once a day Unchanged hydrOXYzine (hydrOXYzine hydrochloride 25 mg oral tablet) 1 tab(s) by mouth Three (3) times a day Generalized anxiety disorder with panic attacks Sleep apnea Unchanged melatonin Unchanged Misc Medication prostate ultra Unchanged multivitamin with minerals (Multi-Day Plus Minerals oral tablet) 1 tab(s) by mouth Every day Unchanged ubiquinone (Co-Q10 50 mg oral capsule) 1 cap by mouth Every day Please take this list to your next doctor s visit. Bring all medications you take, including over the counter medications, herbals and other supplements with you to your doctor s visit. Patients and families are reminded to discard old lists and to update any records with all medication providers or retail pharmacies. Education Materials Established High Blood Pressure High blood pressure (hypertension) is a chronic disease. Often, healthcare providers don t know what causes it. But it can be caused by certain health conditions and medicines. If you have high blood pressure, you may not have any symptoms. If you do have symptoms, they may include headache, dizziness, changes in your vision, chest pain, and shortness of breath. But even without symptoms, high blood pressure that s not treated raises your risk for heart attack, heart failure, and stroke. High blood pressure is a serious health risk and shouldn t be ignored. Blood pressure measurements are given as 2 numbers. Systolic blood pressure is the upper number. This is the pressure when the heart contracts. Diastolic blood pressure is the lower number. This is the pressure when the heart relaxes between beats. You will see your blood pressure readings written together. For example, a person with a systolic pressure of 118 and a diastolic pressure of 78 will have 118/78 written in the medical record. Blood pressure is categorized as normal, elevated, or stage 1 or stage 2 high blood pressure: Normal blood pressure is systolic of less than 120 and diastolic of less than 80 (120/80) Elevated blood pressure is systolic of 120 to 129 and diastolic less than 80 Stage 1 high blood pressure is systolic is 130 to 139 or diastolic between 80 to 89 Stage 2 high blood pressure is when systolic is 140 or higher or the diastolic is 90 or higher Home care If you have high blood pressure, follow these home care guidelines to help lower your blood pressure. If you are taking medicines for high blood pressure, these methods may reduce or end your need for medicines in the future. Start a weight-loss program if you are overweight. Cut back on how much salt you get in your diet. Here s how to do this: oDon t eat foods that have a lot of salt. These include olives, pickles, smoked meats, and salted potato chips. oDon t add salt to your food at the table. oUse only small amounts of salt when cooking. Start an exercise program. Talk with your healthcare provider about the type of exercise program that would be best for you. It doesn't have to be hard. Even brisk walking for 20 minutes 3 times a week is a good form of exercise. Don t take medicines that stimulate the heart. This includes many [id number] cold and sinus decongestant pills and sprays, as well as diet pills. Check the warnings about high blood pressure onthe label. Before buying any [id number] medicines or supplements, always ask the pharmacist about the product's potential interaction with your high blood pressure and your high blood pressure medicines. Stimulants such as amphetamine or cocaine could be deadly for someone with high blood pressure. Never take these. Limit how much caffeine you get in your diet. Switch to caffeine-free products. Stop smoking. If you are a long-time smoker, this can be hard. Talk to your healthcare provider about medicines and nicotine replacement options to help you. Also, enroll in a stop-smoking program tomake it more likely that you will quit for good. Learn how to handle stress. This is an important part of any program to lower blood pressure. Learnabout relaxation methods like meditation, yoga, or biofeedback. If your provider prescribed medicines, take them exactly as directed. Missing doses may cause your blood pressure get out of control. If you miss a dose or doses, check with your healthcare provider or pharmacist about what to do. Consider buying an automatic blood pressure machine to check your blood pressure at home. Ask your provider for a recommendation. You can get one of these at most pharmacies. The [place] [employer] recommends the following guidelines for home blood pressure monitoring: Don't smoke or drink coffee for 30 minutes before taking your blood pressure. Go to the bathroom before the test. Relax for 5 minutes before taking the measurement. Sit with your back supported (don't sit on a couch or soft chair); keep your feet on the floor uncrossed. Place your arm on a solid flat surface (like a table) with the upper part of the arm at heartlevel. Place the middle of the cuff directly above the bend of the elbow. Check the monitor's instruction manual for an illustration. Take multiple readings. When you measure, take 2 to 3 readings one minute apart and record all of the results. Take your blood pressure at the same time every day, or as your healthcare provider recommends. Record the date, time, and blood pressure reading. Take the record with you to your next medical appointment. If your blood pressure monitor has a built-in memory, simply take the monitor with you to your next appointment. Call your provider if you have several high readings. Don't be frightened by a single high blood pressure reading, but if you get several high readings, check in with your healthcare provider. Note: When blood pressure reaches a systolic (top number) of 180 or higher OR diastolic (bottom number) of 110 or higher, seek emergency medical treatment. Follow-up care You will need to see your healthcare provider regularly. This is to check your blood pressure and to make changes to your medicines. Make a follow-up appointment as directed. Bring the record of yourhome blood pressure readings to the appointment. When to seek medical advice Call your healthcare provider right away if any of these occur: Blood pressure reaches a systolic (upper number) of 180 or higher OR a diastolic (bottom number) of110 or higher Chest pain or shortness of breath Severe headache Throbbing or rushing sound in the ears Nosebleed Sudden severe pain in your belly (abdomen) Extreme drowsiness, confusion, or fainting Dizziness or spinning sensation (vertigo) Weakness of an arm or leg or one side of the face You have problems speaking or seeing [id number] [employer]. [address] [place] [address], [place] [address]. All rights reserved. This information is not intended as a substitute for professional medical care. Always follow yourhealthcare professional's instructions. Anxiety Reaction Anxiety is the feeling we all get when we think something bad might happen. It is a normal responseto stress and usually causes only a mild reaction. When anxiety becomes more severe, it can interfere with daily life. In some cases, you may not even be aware of what it is you re anxious about. There may also be a genetic link or it may be a learned behavior in the home. Both psychological and physical triggers cause stress reaction. It's often a response to fear or emotional stress, real or imagined. This stress may come from home, family, work, or social relationships. During an anxiety reaction, you may feel: Helpless Nervous Depressed Irritable Your body may show signs of anxiety in many ways. You may experience: Dry mouth Shakiness Dizziness Weakness Trouble breathing Breathing fast (hyperventilating) Chest pressure Sweating Headache Nausea Diarrhea Tiredness Inability to sleep Sexual problems Home care Try to locate the sources of stress in your life. They may not be obvious. These may include: oDaily hassles of life (such as traffic jams, missed appointments, or car troubles) oMajor life changes, both good (new baby or job promotion) and bad (loss of job or loss of loved one) oOverload: feeling that you have too many responsibilities and can't take care of all of them at once oFeeling helpless or feeling that your problems are beyond what you re able to solve Notice how your body reacts to stress. Learn to listen to your body signals. This will help you take action before the stress becomes severe. When you can, do something about the source of your stress. (Avoid hassles, limit the amount of change that happens in your life at one time and take a break when you feel overloaded). Unfortunately, many stressful situations can't be avoided. It is necessary to learn how to better manage stress. There are many proven methods that will reduce your anxiety. These include simple things like exercise, good nutrition, and adequate rest. Also, there are certain techniques that are helpful: oRelaxation oBreathing exercises oVisualization oBiofeedback oMeditation For more information about this, consult your healthcare provider or go to a local bookstore and review the many books and tapes available on this subject. Follow-up care If you feel that your anxiety is not responding to self-help measures, contact your healthcare provider or make an appointment with a counselor. You may need short-term psychological counseling and temporary medicine to help you manage stress. Call 911 Call 911 if any of these happen: Trouble breathing Confusion Drowsiness or trouble wakening Fainting or loss of consciousness Rapid heart rate Seizure New chest pain that becomes more severe, lasts longer, or spreads into your shoulder, arm, neck, jaw, or back When to seek medical advice Call your healthcare provider right away if any of these happen: Your symptoms get worse Severe headache not relieved by rest and mild pain reliever [id number] [employer]. [address] [place] [address], [place] [address]. All rights reserved. This information is not intended as a substitute for professional medical care. Always follow yourhealthcare professional's instructions. Additional Information VACCINATE! IT SAVES LIVES! Members of the community who have not yet received the COVID-19 vaccine and would like to receive it can visit one of [facility] vaccine clinics. There are many vaccine clinic locations within the [facility]. For locations and available times, please visit [email or web address].[email or web address]/. It is important to note that some COVID mobile vaccine clinics are held outdoors and may be canceled in rainy or stormy conditions. To learn more about pediatric vaccinations (ages 5-11), we invite you to visit the [facility] webpage. [email or web address]/[email or web address] learn more about the COVID-19 vaccine, we invite you to visit the CDC website for a list of frequently asked questions. https://www.cdc.gov/coronavirus/2019-ncov/vaccines/faq.html [employer] Patient Portal Access Instructions: Stay connected with your healthcare team and access your personal medical information anytime with the [employer] Patient Portal. If you would like a full copy of your medical records please contact the [facility] Medical Records Department Friday through Friday between 8a.m. and 4:30p.m. Please follow the directions below to access the portal: 1.Access the email account you provided upon registration to the hospital.2.Look for an invitation email from [facility].3.Open the email and access the invitation link: Accept Invitation to [facility]4.Fill in the required elizondo to create your account. Sign into [email or web address] with your username and password that you created in the above steps to stay up to date. You can then view a summary of results, a summary of your visits, and the ability to download your summaries to your computer or send the information securely to a physician. Remember that your healthcare information is confidential, so carefully consider who you will allow to register on the [employer] Patient Portal for access to your information. You can also access the [employer] Patient Portal on the [employer] janeth. Simply click on Health Records under [employer] and then click on the [employer] logo. HOW TO SAFELY DISPOSE OF PRESCRIPTION MEDICATIONS Please use one of the following methods to safely dispose of your unused medications. 1.Use a drug disposal kit: the drug disposal pouch allows you to safely discard your old and unuseddrugs. Ask your nurse to give you one when you are discharged.2.Visit a local take-back location: Many local pharmacies and police departments have programs that collect old and unwanted prescriptiondrugs. Call your local pharmacy or go to http://bit.Scribz/6E4Wm5a to find one close to you.3.Make use of household items: Use cat litter or old coffee grounds to dispose medications if other options arenot available. Mix your drugs with these household products, seal them in an airtight container andthrow it into the garbage. Call [facility]: [phone] to be sure your drugs can be disposed of in this way. Some medicines may require a different approach.4.Never flush your medications down the toilet. IF YOU HAVE BEEN PRESCRIBED AN OPIOIDS FOR PAIN If you have been prescribed an opioid (such as hydrocodone, oxycodone or morphine), it is critical to understand the possible side effects and risks of opioid pain medications. Even when taken as directed, opioids can have several side effects including: Tolerance, meaning you might need to take more of a medication for the same pain relief. Nausea, vomiting and/or constipation. Sleepiness, dizziness, dry mouth, confusion, depression or itching. Physical dependence, meaning you have withdrawal symptoms when a medication is stopped ? this can develop within a few days. KNOW YOUR RESPONSIBILITIES It is important to know exactly how much and how often to take the opioid pain medications you are prescribed. Never take opioids in higher amounts or more often than prescribed. Do not combine opioids with alcohol or other drugs that cause drowsiness, such as benzodiazepines, also known as benzos,including diazepam and alprazolam, muscle relaxants or sleep aids. Never sell or share prescriptionopioids. This is illegal. Store opioids in a secure place and out of reach of others (including children, family, friends and visitors). The last page(s) of this document has been signed and retained as a CHART COPY Signatures Patient Education Materials Hypertension, Established Anxiety Reaction Medication Leaflets My discharge plan and instructions have been reviewed and explained to me and ANGELLA Meadows RICHARD F understand my current condition and have read and understand these discharge instructions. I have received a written copy of the plan/instructions. If I have questions, I am aware that I should contact my doctor. 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 Often, healthcare providers don t know what causes it. But it can be caused by certain health conditions and medicines. If you have high blood pressure, you may not have any symptoms. If you do have symptoms, they may include headache, dizziness, changes in your vision, chest pain, and shortness of breath. But even without symptoms, high blood pressure that s not treated raises your risk for heart attack, heart failure, and stroke. High blood pressure is a serious health risk and shouldn t be ignored. Blood pressure measurements are given as 2 numbers. Systolic blood pressure is the upper number. This is the pressure when the heart contracts. Diastolic blood pressure is the lower number. This is the pressure when the heart relaxes between beats. You will see your blood pressure readings written together. For example, a person with a systolic pressure of 118 and a diastolic pressure of 78 will have 118/78 written in the medical record. Blood pressure is categorized as normal, elevated, or stage 1 or stage 2 high blood pressure: Normal blood pressure is systolic of less than 120 and diastolic of less than 80 (120/80) Elevated blood pressure is systolic of 120 to 129 and diastolic less than 80 Stage 1 high blood pressure is systolic is 130 to 139 or diastolic between 80 to 89 Stage 2 high blood pressure is when systolic is 140 or higher or the diastolic is 90 or higher Home care If you have high blood pressure, follow these home care guidelines to help lower your blood pressure. If you are taking medicines for high blood pressure, these methods may reduce or end your need for medicines in the future. Start a weight-loss program if you are overweight. Cut back on how much salt you get in your diet. Here s how to do this: oDon t eat foods that have a lot of salt. These include olives, pickles, smoked meats, and salted potato chips. oDon t add salt to your food at the table. oUse only small amounts of salt when cooking. Start an exercise program. Talk with your healthcare provider about the type of exercise program that would be best for you. It doesn't have to be hard. Even brisk walking for 20 minutes 3 times a week is a good form of exercise. Don t take medicines that stimulate the heart. This includes many enyh-tij-nieozfx cold and sinus decongestant pills and sprays, as well as diet pills. Check the warnings about high blood pressure onthe label. Before buying any zusl-puy-mdhjaly medicines or supplements, always ask the pharmacist about the product's potential interaction with your high blood pressure and your high blood pressure medicines. Stimulants such as amphetamine or cocaine could be deadly for someone with high blood pressure. Never take these. Limit how much caffeine you get in your diet. Switch to caffeine-free products. Stop smoking. If you are a long-time smoker, this can be hard. Talk to your healthcare provider about medicines and nicotine replacement options to help you. Also, enroll in a stop-smoking program tomake it more likely that you will quit for good. Learn how to handle stress. This is an important part of any program to lower blood pressure. Learnabout relaxation methods like meditation, yoga, or biofeedback. If your provider prescribed medicines, take them exactly as directed. Missing doses may cause your blood pressure get out of control. If you miss a dose or doses, check with your healthcare provider or pharmacist about what to do. Consider buying an automatic blood pressure machine to check your blood pressure at home. Ask your provider for a recommendation. You can get one of these at most pharmacies. The [place] [employer] recommends the following guidelines for home blood pressure monitoring: Don't smoke or drink coffee for 30 minutes before taking your blood pressure. Go to the bathroom before the test. Relax for 5 minutes before taking the measurement. Sit with your back supported (don't sit on a couch or soft chair); keep your feet on the floor uncrossed. Place your arm on a solid flat surface (like a table) with the upper part of the arm at heartlevel. Place the middle of the cuff directly above the bend of the elbow. Check the monitor's instruction manual for an illustration. Take multiple readings. When you measure, take 2 to 3 readings one minute apart and record all of the results. Take your blood pressure at the same time every day, or as your healthcare provider recommends. Record the date, time, and blood pressure reading. Take the record with you to your next medical appointment. If your blood pressure monitor has a built-in memory, simply take the monitor with you to your next appointment. Call your provider if you have several high readings. Don't be frightened by a single high blood pressure reading, but if you get several high readings, check in with your healthcare provider. Note: When blood pressure reaches a systolic (top number) of 180 or higher OR diastolic (bottom number) of 110 or higher, seek emergency medical treatment. Follow-up care You will need to see your healthcare provider regularly. This is to check your blood pressure and to make changes to your medicines. Make a follow-up appointment as directed. Bring the record of yourhome blood pressure readings to the appointment. When to seek medical advice Call your healthcare provider right away if any of these occur: Blood pressure reaches a systolic (upper number) of 180 or higher OR a diastolic (bottom number) of110 or higher Chest pain or shortness of breath Severe headache Throbbing or rushing sound in the ears Nosebleed Sudden severe pain in your belly (abdomen) Extreme drowsiness, confusion, or fainting Dizziness or spinning sensation (vertigo) Weakness of an arm or leg or one side of the face You have problems speaking or seeing [id number] [employer]. [address] [place] [address]. All rights reserved. This information is not intended as a substitute for professional medical care. Always follow yourhealthcare professional's instructions. 06/09/2023 17:35:28 Anxiety Reaction Anxiety Reaction Anxiety is the feeling we all get when we think something bad might happen. It is a normal responseto stress and usually causes only a mild reaction. When anxiety becomes more severe, it can interfere with daily life. In some cases, you may not even be aware of what it is you re anxious about. There may also be a genetic link or it may be a learned behavior in the home. Both psychological and physical triggers cause stress reaction. It's often a response to fear or emotional stress, real or imagined. This stress may come from home, family, work, or social relationships. During an anxiety reaction, you may feel: Helpless Nervous Depressed Irritable Your body may show signs of anxiety in many ways. You may experience: Dry mouth Shakiness Dizziness Weakness Trouble breathing Breathing fast (hyperventilating) Chest pressure Sweating Headache Nausea Diarrhea Tiredness Inability to sleep Sexual problems Home care Try to locate the sources of stress in your life. They may not be obvious. These may include: oDaily hassles of life (such as traffic jams, missed appointments, or car troubles) oMajor life changes, both good (new baby or job promotion) and bad (loss of job or loss of loved one) oOverload: feeling that you have too many responsibilities and can't take care of all of them at once oFeeling helpless or feeling that your problems are beyond what you re able to solve Notice how your body reacts to stress. Learn to listen to your body signals. This will help you take action before the stress becomes severe. When you can, do something about the source of your stress. (Avoid hassles, limit the amount of change that happens in your life at one time and take a break when you feel overloaded). Unfortunately, many stressful situations can't be avoided. It is necessary to learn how to better manage stress. There are many proven methods that will reduce your anxiety. These include simple things like exercise, good nutrition, and adequate rest. Also, there are certain techniques that are helpful: oRelaxation oBreathing exercises oVisualization oBiofeedback oMeditation For more information about this, consult your healthcare provider or go to a local bookstore and review the many books and tapes available on this subject. Follow-up care If you feel that your anxiety is not responding to self-help measures, contact your healthcare provider or make an appointment with a counselor. You may need short-term psychological counseling and temporary medicine to help you manage stress. Call 911 Call 911 if any of these happen: Trouble breathing Confusion Drowsiness or trouble wakening Fainting or loss of consciousness Rapid heart rate Seizure New chest pain that becomes more severe, lasts longer, or spreads into your shoulder, arm, neck, jaw, or back When to seek medical advice Call your healthcare provider right away if any of these happen: Your symptoms get worse Severe headache not relieved by rest and mild pain reliever [id number] [employer]. [address] [place] [address], [place] [address]. All rights reserved. This information is not intended as a substitute for professional medical care. Always follow yourhealthcare professional's instructions. 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 Atherosclerotic aorta. No vascular congestion, dense consolidation, large pleural effusion, or pneumothorax. No acute bony abnormality. IMPRESSION: No focal consolidation.. I have personally reviewed the images of this examination and agree with the resident's findings and interpretation. Interpreted by: Mike Lomeli Preliminary Report By: Puja Benoit Electronically signed By Mike Lomeli Dictated Date: 06/09/2023 6:39:54 PM Prelim Date: 06/09/2023 6:41:07 PM Sign Date: 06/09/2023 6:52:26 PM Ordering Provider: LAURA SOW [facility]07-10-2023 Note ORIGINAL EXAMINATION: ONE XRAY VIEW OF THE CHEST 06/09/2023 6:06 pm COMPARISON: 05/27/2023 HISTORY: ORDERING SYSTEM PROVIDED HISTORY: Reason for Exam: chest pain FINDINGS: Normal cardiomediastinal silhouette. Atherosclerotic aorta. No vascular congestion, dense consolidation, large pleural effusion, or pneumothorax. No acute bony abnormality. IMPRESSION: No focal consolidation.. I have personally reviewed the images of this examination and agree with the resident's findings and interpretation. Interpreted by: Mike Lomeli Preliminary Report By: Puja Benoit Electronically signed By Mike Lomeli Dictated Date: 06/09/2023 6:39:54 PM Prelim Date: 06/09/2023 6:41:07 PM Sign Date: 06/09/2023 6:52:26 PM Ordering Provider: LAURA [facility] Wesley [id number] Hospital Discharge instructions Patient Education 05/27/2023 04:50:38 Anxiety Reaction Anxiety Reaction Anxiety is the feeling we all get when we think something bad might happen. It is a normal responseto stress and usually causes only a mild reaction. When anxiety becomes more severe, it can interfere with daily life. In some cases, you may not even be aware of what it is you re anxious about. There may also be a genetic link or it may be a learned behavior in the home. Both psychological and physical triggers cause stress reaction. It's often a response to fear or emotional stress, real or imagined. This stress may come from home, family, work, or social relationships. During an anxiety reaction, you may feel: Helpless Nervous Depressed Irritable Your body may show signs of anxiety in many ways. You may experience: Dry mouth Shakiness Dizziness Weakness Trouble breathing Breathing fast (hyperventilating) Chest pressure Sweating Headache Nausea Diarrhea Tiredness Inability to sleep Sexual problems Home care Try to locate the sources of stress in your life. They may not be obvious. These may include: oDaily hassles of life (such as traffic jams, missed appointments, or car troubles) oMajor life changes, both good (new baby or job promotion) and bad (loss of job or loss of loved one) oOverload: feeling that you have too many responsibilities and can't take care of all of them at once oFeeling helpless or feeling that your problems are beyond what you re able to solve Notice how your body reacts to stress. Learn to listen to your body signals. This will help you take action before the stress becomes severe. When you can, do something about the source of your stress. (Avoid hassles, limit the amount of change that happens in your life at one time and take a break when you feel overloaded). Unfortunately, many stressful situations can't be avoided. It is necessary to learn how to better manage stress. There are many proven methods that will reduce your anxiety. These include simple things like exercise, good nutrition, and adequate rest. Also, there are certain techniques that are helpful: oRelaxation oBreathing exercises oVisualization oBiofeedback oMeditation For more information about this, consult your healthcare provider or go to a local bookstore and review the many books and tapes available on this subject. Follow-up care If you feel that your anxiety is not responding to self-help measures, contact your healthcare provider or make an appointment with a counselor. You may need short-term psychological counseling and temporary medicine to help you manage stress. Call 911 Call 911 if any of these happen: Trouble breathing Confusion Drowsiness or trouble wakening Fainting or loss of consciousness Rapid heart rate Seizure New chest pain that becomes more severe, lasts longer, or spreads into your shoulder, arm, neck, jaw, or back When to seek medical advice Call your healthcare provider right away if any of these happen: Your symptoms get worse Severe headache not relieved by rest and mild pain reliever [id number] [employer]. [address] [place] [address]. All rights reserved. This information is not intended as a substitute for professional medical care. Always follow yourhealthcare professional's instructions. 05/27/2023 04:50:37 Palpitations Heart Palpitations Palpitations are the feeling that your heart is beating hard, fast, or irregular. Some describe it as pounding or skipped beats. Palpitations may occur in someone with heart disease, but can alsooccur in a healthy person. Heart-related causes: Arrhythmia (a change from the heart's normal rhythm) Heart valve disease Disease of the heart muscle Coronary artery disease High blood pressure Ddk-mggur-owokbmg causes: Certain medicines such as asthma inhalers and decongestants Some herbal supplements, energy drinks and pills, and weight loss pills Illegal stimulant drugs such as cocaine, crank, methamphetamine, PCP, bath salts, or ecstasy Caffeine, alcohol, and tobacco Medical conditions such as thyroid disease, anemia, anxiety, and panic disorder Sometimes the cause can't be found. Home care Follow these home care tips: Don't use too much caffeine, alcohol, tobacco, or any stimulant drugs. Tell your doctor about any prescription or zqdm-zdy-xnytahp or herbal medicines you take. Follow-up care Follow up with your doctor, or as advised. Call 911 This is the fastest and safest way to get to the emergency department. The paramedics can also begin treatment on the way to the hospital, if needed. Don't wait until your symptoms are severe to call 911. These are reasons to call 911: Chest pain Shortness of breath Feeling lightheaded, faint, or dizzy Fainting or loss of consciousness Very irregular heartbeat Rapid heartbeat that makes you uncomfortable Slower than usual heart rate associated with symptoms Slower than usual heart rate Chest pain with weakness, dizziness, heavy sweating, nausea, or vomiting Extreme drowsiness or confusion Weakness of an arm or leg, or on 1 side of the face Difficulty with speech or vision When to seek medical advice Call your healthcare provider right away if you have palpitations and any of the following: Weakness Dizziness Lightheadedness Fainting [id number] [employer]. [address] [place], [place] [id number]. All rights reserved. This information is not intended as a substitute for professional medical care. Always follow yourhealthcare professional's instructions. 05/27/2023 04:50:36 High Blood Pressure, Established, Out of Control Uncontrolled High Blood Pressure (Established) Your blood pressure was unusually high today. This can occur if you ve missed doses of your blood pressure medicine. Or it can happen if you are taking other medicines. These include some asthma inhalers, decongestants, diet pills, and street drugs like cocaine and amphetamine. Other causes include: Weight gain More salt in your diet Smoking Caffeine Your blood pressure can also rise if you are emotionally upset or in intense pain. It may go back to normal after a period of rest. Blood pressure measurements are given as 2 numbers. Systolic blood pressure is the upper number. This is the pressure when the heart contracts. Diastolic blood pressure is the lower number. This is the pressure when the heart relaxes between beats. You will see your blood pressure readings written together. For example, a person with a systolic pressure of 118 and a diastolic pressure of 78 will have 118/78 written in the medical record. To be high blood pressure, the numbers must be higher when tested over a period of time. Blood pressure is categorized as normal, elevated, or stage 1 or stage 2 high blood pressure: Normal blood pressure is systolic of less than 120 and diastolic of less than 80 (120/80) Elevated blood pressure is systolic of 120 to 129 and diastolic less than 80 Stage 1 high blood pressure is systolic is 130 to 139 or diastolic between 80 to 89 Stage 2 high blood pressure is when systolic is 140 or higher or the diastolic is 90 or higher Uncontrolled high blood pressure can cause serious health problems. It raises your risk for heart attack, stroke, and heart failure. In general, if you have high blood pressure, keeping your blood pressure below 130/80 mmHg may help prevent these problems. Your healthcare provider may prescribe medicine to help control blood pressure if lifestyle changes are not enough. Home care It s important to take steps to lower your blood pressure. If you are taking blood pressure medicine, the guidelines below may help you need less or no medicines in the future. Start a weight-loss program if you are overweight. Cut back on the amount of salt in your diet: oAvoid high-salt foods like olives, pickles, smoked meats, and salted potato chips. oDon t add salt to your food at the table. oUse only small amounts of salt when cooking. Start an exercise program. Talk with your healthcare provider about what exercise program is best for you. It doesn t have to be difficult. Even brisk walking for 20 minutes 3 times a week is a good form of exercise. Avoid medicines that stimulates the heart. This includes many zves-uoc-bkldior cold and sinus decongestant pills and sprays, as well as diet pills. Check the warnings about high blood pressure on thelabel. Before purchasing any mavf-xtg-xgpbdsy medicines or supplements, always ask the pharmacist about the product's potential interaction with your high blood pressure and your medicines. Stimulants such as amphetamine or cocaine could be lethal for someone with high blood pressure. Never take these. Limit how much caffeine you drink. Or switch to noncaffeinated beverages. Stop smoking. If you are a long-time smoker, this can be hard. Enroll in a stop- smoking program to make it more likely that you will succeed. Talk with your provider about ways to quit. Learn how to handle stress better. This is an important part of any program to lower blood pressure. Learn ways to relax. These include meditation, yoga, and biofeedback. If medicines were prescribed, take them exactly as directed. Missing doses may cause your blood pressure to get out of control. If you miss a dose or doses of your medicines, check with your healthcare provider or pharmacist about what to do. Consider buying an automatic blood pressure machine. Your provider may recommend a certain type. You can get one of these at most pharmacies. Measure your blood pressure twice a day, in the morning, and in the late afternoon. Keep a written record of your home blood pressure readings and take the record to your medical appointments. Here are some additional guidelines on home blood pressure monitoring from the [employer]. Don't smoke or drink coffee for 30 minutes Go to the bathroom before the test. Relax for 5 minutes before taking the measurement. Sit correctly. Be sure your back is supported. Don't sit on a couch or soft chair. Uncross your feet and place them flat on the floor. Place your arm on a solid, flat surface like a table with the upper arm at heart level. Make certain the middle of the cuff is directly above the bend of the elbow.Check the monitor's instruction manual for an illustration. Take multiple readings. When you measure, take 2 or 3 readings one minute apart and record all of the results. Take your blood pressure at the same time every day, or as your healthcare provider recommends. Record the date, time, and blood pressure reading. Take the record with you to your next appointment. If your blood pressure monitor has a built-in memory, simply take the monitor with you to your next appointment. Call your provider if you have several high readings. Don't be frightened by a single high reading,but if you get several high readings, check in with your healthcare provider. Note: When blood pressure reaches a systolic (top number) of 180 or higher or a diastolic (bottom number) of 110 or higher, emergency medical treatment is required. Call your healthcare provider immediately. Follow-up care Regular visits to your own healthcare provider for blood pressure and medicine checks are an important part of your care. Make a follow-up appointment as directed. Bring the record of your home bloodpressure readings to the appointment. When to seek medical advice Call your healthcare provider right away if any of these occur: Blood pressure reaches a systolic (top number) of 180 or higher or diastolic (bottom number) of 110or higher, emergency medical treatment is required. Chest, arm, shoulder, neck, or upper back pain Shortness of breath Severe headache Throbbing or rushing sound in the ears Nosebleed Extreme drowsiness, confusion, or fainting Dizziness or dizziness with spinning sensation (vertigo) Weakness in an arm or leg or on one side of the face Trouble speaking or seeing [id number] [employer]. [address] [place] [address], [place] [address]. All rights reserved. This information is not intended as a substitute for professional medical care. Always follow yourhealthcare professional's instructions. Follow Up Care 05/27/2023 03:04:43 With:THIAGO LOPEZ DO Address: [address] [place] [phone] When:2-4 days [facility] 06-27-2023 Note Discharge Instructions Thank you for allowing [facility] to assist you with your healthcare needs. The following is importantdischarge information regarding your hospital visit. Diagnosis from Today's Visit Palpitations Hypertension Anxiety Medical screening exam What to Do Next Instructions from Your Care Team No qualifying data available. Post Acute Orders No qualifying data available. You Need to Schedule the Following Appointments Follow Up with THIAGO LOPEZ DO When Within 2-4 days Where: [address] [place] [address] [phone] Allergies Statins (Liver enzyme levels) Medications Please ask your primary doctor or pharmacist before taking any other medication not listed, including over the counter drugs, herbal medications, vitamins and or supplements as they may interact withyour home medications. What How Much When Why Instructions Last Dose New LORazepam (Ativan 0.5 mg oral tablet) 1 tab(s) by mouth Daily at bedtime as needed for as needed for anxiety Palpitations Anxiety Duration: 10 Days Printed Prescription Unchanged diphenhydramine-ibuprofen (Advil PM) 2 tab(s) by mouth Daily at bedtime Unchanged ezetimibe (Zetia 10 mg oral tablet) 1 tab(s) by mouth Once a day Unchanged losartan (losartan 25 mg oral tablet) 1 tab(s) by mouth Once a day replace metoprolol Unchanged melatonin Unchanged Misc Medication prostate ultra Unchanged multivitamin with minerals (Multi-Day Plus Minerals oral tablet) 1 tab(s) by mouth Every day Unchanged ubiquinone (Co-Q10 50 mg oral capsule) 1 cap by mouth Every day Please take this list to your next doctor s visit. Bring all medications you take, including over the counter medications, herbals and other supplements with you to your doctor s visit. Patients and families are reminded to discard old lists and to update any records with all medication providers or retail pharmacies. Medication Leaflets lorazepam (oral) (christina A ze olivier) Ativan, Lorazepam Intensol, Loreev XR What is the most important information I should know about lorazepam? Lorazepam can slow or stop your breathing, especially if you have recently used an opioid medication or alcohol. MISUSE OF THIS MEDICINE CAN CAUSE ADDICTION, OVERDOSE, OR . Keep this medicine where others cannot get to it. You may have withdrawal symptoms if you stop using lorazepam suddenly. Ask your doctor before stopping the medicine. What is lorazepam? Lorazepam is used in adults and children at least 12 years old to treat anxiety disorders. Extended-release lorazepam is used in adults to treat anxiety disorders. Lorazepam may also be used for purposes not listed in this medication guide. What should I discuss with my healthcare provider before taking lorazepam? You should not use lorazepam if you have: narrow-angle glaucoma; or a history of allergic reaction to any benzodiazepine (lorazepam, alprazolam, diazepam, Valium, Xanax, Versed, Klonopin, and others). Tell your doctor if you have ever had: asthma, chronic obstructive pulmonary disease (COPD), sleep apnea, or other breathing disorder; drug or alcohol addiction; depression, mental illness or psychosis, mood changes, or suicidal thoughts or actions; seizures; an allergy to aspirin or yellow food dye; or kidney or liver disease. Tell your doctor if you are or plan to become . If you use lorazepam during , your baby could be born with life-threatening withdrawal symptoms, and may need medical treatment for several weeks. If you are , your name may be listed on a registry to track the effects of lorazepam on the baby. You should not breastfeed. If you do breastfeed, tell your doctor if you notice drowsiness, feeding problems, or slow weight gain in the nursing baby. How should I take lorazepam? Follow the directions on your prescription label and read all medication guides or instruction sheets. Never use lorazepam in larger amounts, or for longer than prescribed. Tell your doctor if you feel an increased urge to use more of this medicine. Never share this medicine with another person, especially someone with a history of drug addiction.MISUSE CAN CAUSE ADDICTION, OVERDOSE, OR . Keep the medicine where others cannot get to it. Selling or giving away this medicine is against the law. Measure the oral concentrate (liquid) with the supplied measuring device (not a kitchen spoon). Mixthe liquid with water, juices, soda or soda-like beverages, or with semi-solid foods such as applesauce or puddings. Swallow this mixture right away. Swallow the extended-release capsule whole and do not crush, chew, break, or open it. If you cannot swallow a capsule whole, open it and mix the medicine with applesauce. Swallow the mixture right away without chewing. Do not stop using lorazepam without asking your doctor. You may have life- threatening withdrawal symptoms if you stop using the medicine suddenly after long-term use. Store tightly closed at room temperature, away from moisture and heat. Store the liquid form of lorazepam in the refrigerator. Throw away any liquid not used within 90 days. Keep your medicine in a place where no one can use it improperly. What happens if I miss a dose? Take the medicine as soon as you can, but skip the missed dose if it is almost time for your next dose. Do not take two doses at one time. What happens if I overdose? Seek emergency medical attention or call the Poison Help line at . An overdose of lorazepam can be fatal if you also drink alcohol or use other drugs that cause drowsiness or slow breathing. Overdose symptoms may include severe drowsiness, confusion, slurred speech, feeling restless, muscle weakness, loss of balance or coordination, feeling light-headed, slow heartbeats, weak or shallow breathing, or coma. What should I avoid while taking lorazepam? Do not drink alcohol. Dangerous side effects or could occur. Avoid driving or hazardous activity until you know how this medicine will affect you. Dizziness or drowsiness can cause falls, accidents, or severe injuries. What are the possible side effects of lorazepam? Get emergency medical help if you have signs of an allergic reaction: hives; difficulty breathing; swelling of your face, lips, tongue, or throat. Lorazepam can slow or stop your breathing, especially if you have recently used an opioid medication or alcohol. A person caring for you should seek emergency medical attention if you have slow breathing with long pauses, blue colored lips, or if you are hard to wake up. Call your doctor at once if you have: severe drowsiness; unusual changes in mood or behavior, being agitated or talkative; sudden restless feeling or excitement; seizures, depression, thinking problems, thoughts of suicide or hurting yourself; confusion, aggression, hallucinations; sleep problems (insomnia); vision changes; or dark urine, or jaundice (yellowing of the skin or eyes). Drowsiness or dizziness may last longer in older adults. Use caution to avoid falling or accidentalinjury. Common side effects may include: dizziness, sedation, drowsiness; weakness; or feeling unsteady. You will need frequent blood tests to check your blood counts and liver function. After you stop using lorazepam, seek medical help right away if you have symptoms such as: unusual muscle movements, being more active or talkative, sudden and severe changes in mood or behavior, confusion, hallucinations, seizures, suicidal thoughts or actions. Some withdrawal symptoms may last up to 12 months or longer after stopping this medicine suddenly. Tell your doctor if you have ongoing anxiety, depression, problems with memory or thinking, trouble sleeping, ringing in your ears, a burning or prickly feeling, or a crawling sensation under your skin. This is not a complete list of side effects and others may occur. Call your doctor for medical advice about side effects. You may report side effects to FDA at 9-162-FXT-2055. What other drugs will affect lorazepam? Taking lorazepam with other drugs that slow your breathing can cause dangerous side effects or . Ask your doctor before using opioid medication, a sleeping pill, a muscle relaxer, or medicine for anxiety or seizures. Tell your doctor about all your other medicines, especially: valproate, probenecid, aminophylline, or theophylline; medicine to treat mental illness; or medicine that contains an antihistamine (such as sleep medicine, cold or allergy medicine). This list is not complete and many other drugs may affect lorazepam. This includes prescription kbmnmdm-uwx-nejbujg medicines, vitamins, and herbal products. Not all possible drug interactions are listed here. Where can I get more information? Your doctor or pharmacist can provide more information about lorazepam. Remember, keep this and all other medicines out of the reach of children, never share your medicines with others, and use this medication only for the indication prescribed. Every effort has been made to ensure that the information provided by [employer] is accurate, up-to-date, and complete, but no guarantee is made to that effect. Drug information contained herein may be time sensitive. [employer] information has been compiled for use by healthcare practitioners and consumers in the [place] and therefore [employer] does not warrant that uses outside of the [place] are appropriate, unless specifically indicated otherwise. [employer] drug information does not endorse drugs, diagnose patients or recommend therapy. [employer] drug information isan informational resource designed to assist licensed healthcare practitioners in caring for their p atients and/or to serve consumers viewing this service as a supplement to, and not a substitute for, the expertise, skill, knowledge and judgment of healthcare practitioners. The absence of a warningfor a given drug or drug combination in no way should be construed to indicate that the drug or drug combination is safe, effective or appropriate for any given patient. [facility] does not assume any responsibility for any aspect of healthcare administered with the aid of information [employer] provides. The information contained herein is not intended to cover all possible uses, directions, precautions, warnings, drug interactions, allergic reactions, or adverse effects. If you have questions about the drugs you are taking, check with your doctor, nurse or pharmacist. Copyright 0814-8103 [facility] [employer]. Version: 10.04. Revision Date: 04/21/2023. Education Materials Anxiety Reaction Anxiety is the feeling we all get when we think something bad might happen. It is a normal responseto stress and usually causes only a mild reaction. When anxiety becomes more severe, it can interfere with daily life. In some cases, you may not even be aware of what it is you re anxious about. There may also be a genetic link or it may be a learned behavior in the home. Both psychological and physical triggers cause stress reaction. It's often a response to fear or emotional stress, real or imagined. This stress may come from home, family, work, or social relationships. During an anxiety reaction, you may feel: Helpless Nervous Depressed Irritable Your body may show signs of anxiety in many ways. You may experience: Dry mouth Shakiness Dizziness Weakness Trouble breathing Breathing fast (hyperventilating) Chest pressure Sweating Headache Nausea Diarrhea Tiredness Inability to sleep Sexual problems Home care Try to locate the sources of stress in your life. They may not be obvious. These may include: oDaily hassles of life (such as traffic jams, missed appointments, or car troubles) oMajor life changes, both good (new baby or job promotion) and bad (loss of job or loss of loved one) oOverload: feeling that you have too many responsibilities and can't take care of all of them at once oFeeling helpless or feeling that your problems are beyond what you re able to solve Notice how your body reacts to stress. Learn to listen to your body signals. This will help you take action before the stress becomes severe. When you can, do something about the source of your stress. (Avoid hassles, limit the amount of change that happens in your life at one time and take a break when you feel overloaded). Unfortunately, many stressful situations can't be avoided. It is necessary to learn how to better manage stress. There are many proven methods that will reduce your anxiety. These include simple things like exercise, good nutrition, and adequate rest. Also, there are certain techniques that are helpful: oRelaxation oBreathing exercises oVisualization oBiofeedback oMeditation For more information about this, consult your healthcare provider or go to a local bookstore and review the many books and tapes available on this subject. Follow-up care If you feel that your anxiety is not responding to self-help measures, contact your healthcare provider or make an appointment with a counselor. You may need short-term psychological counseling and temporary medicine to help you manage stress. Call 911 Call 911 if any of these happen: Trouble breathing Confusion Drowsiness or trouble wakening Fainting or loss of consciousness Rapid heart rate Seizure New chest pain that becomes more severe, lasts longer, or spreads into your shoulder, arm, neck, jaw, or back When to seek medical advice Call your healthcare provider right away if any of these happen: Your symptoms get worse Severe headache not relieved by rest and mild pain reliever [phone] [employer] [address] [facility], [place] [address]. All rights reserved. This information is not intended as a substitute for professional medical care. Always follow yourhealthcare professional's instructions. Heart Palpitations Palpitations are the feeling that your heart is beating hard, fast, or irregular. Some describe it as pounding or skipped beats. Palpitations may occur in someone with heart disease, but can alsooccur in a healthy person. Heart-related causes: Arrhythmia (a change from the heart's normal rhythm) Heart valve disease Disease of the heart muscle Coronary artery disease High blood pressure Hzv-ghqmd-dntrbdd causes: Certain medicines such as asthma inhalers and decongestants Some herbal supplements, energy drinks and pills, and weight loss pills Illegal stimulant drugs such as cocaine, crank, methamphetamine, PCP, bath salts, or ecstasy Caffeine, alcohol, and tobacco Medical conditions such as thyroid disease, anemia, anxiety, and panic disorder Sometimes the cause can't be found. Home care Follow these home care tips: Don't use too much caffeine, alcohol, tobacco, or any stimulant drugs. Tell your doctor about any prescription or thzl-yir-gvmfuih or herbal medicines you take. Follow-up care Follow up with your doctor, or as advised. Call 911 This is the fastest and safest way to get to the emergency department. The paramedics can also begin treatment on the way to the hospital, if needed. Don't wait until your symptoms are severe to call 911. These are reasons to call 911: Chest pain Shortness of breath Feeling lightheaded, faint, or dizzy Fainting or loss of consciousness Very irregular heartbeat Rapid heartbeat that makes you uncomfortable Slower than usual heart rate associated with symptoms Slower than usual heart rate Chest pain with weakness, dizziness, heavy sweating, nausea, or vomiting Extreme drowsiness or confusion Weakness of an arm or leg, or on 1 side of the face Difficulty with speech or vision When to seek medical advice Call your healthcare provider right away if you have palpitations and any of the following: Weakness Dizziness Lightheadedness Fainting [phone] [employer]. [address] [place] [address]. All rights reserved. This information is not intended as a substitute for professional medical care. Always follow yourhealthcare professional's instructions. Uncontrolled High Blood Pressure (Established) Your blood pressure was unusually high today. This can occur if you ve missed doses of your blood pressure medicine. Or it can happen if you are taking other medicines. These include some asthma inhalers, decongestants, diet pills, and street drugs like cocaine and amphetamine. Other causes include: Weight gain More salt in your diet Smoking Caffeine Your blood pressure can also rise if you are emotionally upset or in intense pain. It may go back to normal after a period of rest. Blood pressure measurements are given as 2 numbers. Systolic blood pressure is the upper number. This is the pressure when the heart contracts. Diastolic blood pressure is the lower number. This is the pressure when the heart relaxes between beats. You will see your blood pressure readings written together. For example, a person with a systolic pressure of 118 and a diastolic pressure of 78 will have 118/78 written in the medical record. To be high blood pressure, the numbers must be higher when tested over a period of time. Blood pressure is categorized as normal, elevated, or stage 1 or stage 2 high blood pressure: Normal blood pressure is systolic of less than 120 and diastolic of less than 80 (120/80) Elevated blood pressure is systolic of 120 to 129 and diastolic less than 80 Stage 1 high blood pressure is systolic is 130 to 139 or diastolic between 80 to 89 Stage 2 high blood pressure is when systolic is 140 or higher or the diastolic is 90 or higher Uncontrolled high blood pressure can cause serious health problems. It raises your risk for heart attack, stroke, and heart failure. In general, if you have high blood pressure, keeping your blood pressure below 130/80 mmHg may help prevent these problems. Your healthcare provider may prescribe medicine to help control blood pressure if lifestyle changes are not enough. Home care It s important to take steps to lower your blood pressure. If you are taking blood pressure medicine, the guidelines below may help you need less or no medicines in the future. Start a weight-loss program if you are overweight. Cut back on the amount of salt in your diet: oAvoid high-salt foods like olives, pickles, smoked meats, and salted potato chips. oDon t add salt to your food at the table. oUse only small amounts of salt when cooking. Start an exercise program. Talk with your healthcare provider about what exercise program is best for you. It doesn t have to be difficult. Even brisk walking for 20 minutes 3 times a week is a good form of exercise. Avoid medicines that stimulates the heart. This includes many liux-oop-ijqvmvm cold and sinus decongestant pills and sprays, as well as diet pills. Check the warnings about high blood pressure on thelabel. Before purchasing any btlm-git-fmisxbr medicines or supplements, always ask the pharmacist about the product's potential interaction with your high blood pressure and your medicines. Stimulants such as amphetamine or cocaine could be lethal for someone with high blood pressure. Never take these. Limit how much caffeine you drink. Or switch to noncaffeinated beverages. Stop smoking. If you are a long-time smoker, this can be hard. Enroll in a stop- smoking program to make it more likely that you will succeed. Talk with your provider about ways to quit. Learn how to handle stress better. This is an important part of any program to lower blood pressure. Learn ways to relax. These include meditation, yoga, and biofeedback. If medicines were prescribed, take them exactly as directed. Missing doses may cause your blood pressure to get out of control. If you miss a dose or doses of your medicines, check with your healthcare provider or pharmacist about what to do. Consider buying an automatic blood pressure machine. Your provider may recommend a certain type. You can get one of these at most pharmacies. Measure your blood pressure twice a day, in the morning, and in the late afternoon. Keep a written record of your home blood pressure readings and take the record to your medical appointments. Here are some additional guidelines on home blood pressure monitoring from the [place] [employer]. Don't smoke or drink coffee for 30 minutes Go to the bathroom before the test. Relax for 5 minutes before taking the measurement. Sit correctly. Be sure your back is supported. Don't sit on a couch or soft chair. Uncross your feet and place them flat on the floor. Place your arm on a solid, flat surface like a table with the upper arm at heart level. Make certain the middle of the cuff is directly above the bend of the elbow.Check the monitor's instruction manual for an illustration. Take multiple readings. When you measure, take 2 or 3 readings one minute apart and record all of the results. Take your blood pressure at the same time every day, or as your healthcare provider recommends. Record the date, time, and blood pressure reading. Take the record with you to your next appointment. If your blood pressure monitor has a built-in memory, simply take the monitor with you to your next appointment. Call your provider if you have several high readings. Don't be frightened by a single high reading,but if you get several high readings, check in with your healthcare provider. Note: When blood pressure reaches a systolic (top number) of 180 or higher or a diastolic (bottom number) of 110 or higher, emergency medical treatment is required. Call your healthcare provider immediately. Follow-up care Regular visits to your own healthcare provider for blood pressure and medicine checks are an important part of your care. Make a follow-up appointment as directed. Bring the record of your home bloodpressure readings to the appointment. When to seek medical advice Call your healthcare provider right away if any of these occur: Blood pressure reaches a systolic (top number) of 180 or higher or diastolic (bottom number) of 110or higher, emergency medical treatment is required. Chest, arm, shoulder, neck, or upper back pain Shortness of breath Severe headache Throbbing or rushing sound in the ears Nosebleed Extreme drowsiness, confusion, or fainting Dizziness or dizziness with spinning sensation (vertigo) Weakness in an arm or leg or on one side of the face Trouble speaking or seeing 2916-1105 [employer]. [address] [place] [address]. All rights reserved. This information is not intended as a substitute for professional medical care. Always follow yourhealthcare professional's instructions. Additional Information VACCINATE! IT SAVES LIVES! Members of the community who have not yet received the COVID-19 vaccine and would like to receive it can visit one of [facility] vaccine clinics. There are many vaccine clinic locations within the [facility]. For locations and available times, please visit [email or web address]/. It is important to note that some COVID mobile vaccine clinics are held outdoors and may be canceled in rainy or stormy conditions. To learn more about pediatric vaccinations (ages 5-11), we invite you to visit the [facility] webpage. https://www.[email or web address].org/pages/[email or web address]-Wbvvb-Nyvftephjox-Vinennpbfi-Ftjno-Gqw stions.htmlTo learn more about the COVID-19 vaccine, we invite you to visit the CDC website for a list of frequently asked questions. https://www.cdc.gov/coronavirus/2019-ncov/vaccines/faq.html [facility] Patient Portal Access Instructions: Stay connected with your healthcare team and access your personal medical information anytime with the [employer] Patient Portal. If you would like a full copy of your medical records please contact the [facility] Medical Records Department Friday through Friday between 8a.m. and 4:30p.m. Please follow the directions below to access the portal: 1.Access the email account you provided upon registration to the hospital.2.Look for an invitation email from [facility].3.Open the email and access the invitation link: Accept Invitation to [facility]4.Fill in the required elizondo to create your account. Sign into [email or web address] with your username and password that you created in the above steps to stay up to date. You can then view a summary of results, a summary of your visits, and the ability to download your summaries to your computer or send the information securely to a physician. Remember that your healthcare information is confidential, so carefully consider who you will allow to register on the [facility] Patient Portal for access to your information. You can also access the [facility] Patient Portal on the [employer]. Simply click on Health Records under [employer] and then click on the [employer] logo. HOW TO SAFELY DISPOSE OF PRESCRIPTION MEDICATIONS Please use one of the following methods to safely dispose of your unused medications. 1.Use a drug disposal kit: the drug disposal pouch allows you to safely discard your old and unuseddrugs. Ask your nurse to give you one when you are discharged.2.Visit a local take-back location: Many local pharmacies and police departments have programs that collect old and unwanted prescriptiondrugs. Call your local pharmacy or go to http://myMatrixx.Scribz/7G8Ta6i to find one close to you.3.Make use of household items: Use cat litter or old coffee grounds to dispose medications if other options arenot available. Mix your drugs with these household products, seal them in an airtight container andthrow it into the garbage. Call [facility]: [phone] to be sure your drugs can be disposed of in this way. Some medicines may require a different approach.4.Never flush your medications down the toilet. IF YOU HAVE BEEN PRESCRIBED AN OPIOIDS FOR PAIN If you have been prescribed an opioid (such as hydrocodone, oxycodone or morphine), it is critical to understand the possible side effects and risks of opioid pain medications. Even when taken as directed, opioids can have several side effects including: Tolerance, meaning you might need to take more of a medication for the same pain relief. Nausea, vomiting and/or constipation. Sleepiness, dizziness, dry mouth, confusion, depression or itching. Physical dependence, meaning you have withdrawal symptoms when a medication is stopped ? this can develop within a few days. KNOW YOUR RESPONSIBILITIES It is important to know exactly how much and how often to take the opioid pain medications you are prescribed. Never take opioids in higher amounts or more often than prescribed. Do not combine opioids with alcohol or other drugs that cause drowsiness, such as benzodiazepines, also known as benzos,including diazepam and alprazolam, muscle relaxants or sleep aids. Never sell or share prescriptionopioids. This is illegal. Store opioids in a secure place and out of reach of others (including children, family, friends and visitors). The last page(s) of this document has been signed and retained as a CHART COPY Signatures Patient Education Materials Anxiety Reaction Palpitations High Blood Pressure, Established, Out of Control Medication Leaflets lorazepam (oral) My discharge plan and instructions have been reviewed and explained to me and I,RICH PERALES understand my current condition and have read and understand these discharge instructions. I have received a written copy of the plan/instructions. If I have questions, I am aware that I should contact my doctor. 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 HISTORY: ORDERING SYSTEM PROVIDED HISTORY: Reason for Exam: chest pain FINDINGS: The heart size and mediastinal contours are normal. There is no lung infiltrate or edema. No pneumothorax or pleural fluid is present. The skeletal structures are unremarkable. IMPRESSION: No acute radiographic abnormality of the chest. Interpreted by: Isrrael Mcpherson MD Preliminary Report By: Isrrael Mcpherson MD Electronically signed By Isrrael Mcpherson MD Dictated Date: 05/27/2023 4:08:31 AM Prelim Date: 05/27/2023 4:09:12 AM Sign Date: 05/27/2023 4:09:12 AM Ordering Provider: [facility]06-27-2023 Note ORIGINAL EXAMINATION: ONE XRAY VIEW OF THE CHEST 05/27/2023 4:01 am COMPARISON: None. HISTORY: ORDERING SYSTEM PROVIDED HISTORY: Reason for Exam: chest pain FINDINGS: The heart size and mediastinal contours are normal. There is no lung infiltrate or edema. No pneumothorax or pleural fluid is present. The skeletal structures are unremarkable. IMPRESSION: No acute radiographic abnormality of the chest. Interpreted by: Isrrael Mcpherson MD Preliminary Report By: Isrrael Mcpherson MD Electronically signed By Isrrael Mcpherson MD Dictated Date: 05/27/2023 4:08:31 AM Prelim Date: 05/27/2023 4:09:12 AM Sign Date: 05/27/2023 4:09:12 AM Ordering Provider: [facility]01-21-2021 Evaluation + Plan note Future Scheduled Tests Laboratory* Hepatic Function Panel 12/21/20 * Lipid Profile 12/21/20 [facility] Evaluation + Plan note Future Appointments Appointment Date:01/22/2022 09:00:00 AM Scheduled Provider:KARLA WHALEY Location:UROLOGY Appointment Type:URO OV [facility] Evaluation + Plan note Future Appointments Appointment Date:01/24/2023 09:00:00 AM Scheduled Provider:KARLA WHALEY Location:UROLOGY Appointment Type:URO OV Future Scheduled Tests Laboratory* Prostate Specific Antigen 01/22/23 [facility] Evaluation + Plan note Future Appointments Appointment Date:01/24/2023 09:00:00 AM Scheduled Provider:KARLA WHALEY Location:UROLOGY Appointment Type:URO OV Future Scheduled Tests Laboratory* Prostate Specific Antigen 01/22/23 * Microalbumin Level Urine 10/11/22 [facility] Evaluation + Plan note Future Appointments Appointment Date:01/23/2024 08:40:00 AM Scheduled Provider:KARLA WHALEY Location:UROLOGY Appointment Type:URO OV Future Scheduled Tests Laboratory* Prostate Specific Antigen 01/24/24 * Prostate Specific Antigen 01/22/23 * Microalbumin Level Urine 10/11/22 [facility] Evaluation + Plan note Future Appointments Appointment Date:06/06/2023 03:15:00 PM Scheduled Provider:THIAGO LOPEZ DO Location:[facility] Appointment Type:PC OV Appointment Date:01/23/2024 08:40:00 AM Scheduled Provider:KARLA WHALEY Location:UROLOGY Appointment Type:URO OV Future Scheduled Tests Laboratory* Prostate Specific Antigen 01/24/24 * Prostate Specific Antigen 01/22/23 * Microalbumin Level Urine 10/11/22 Radiology* CT Coronary Calcium Score w/o Contrast 05/22/23 [facility] Evaluation + Plan note Future Appointments Appointment Date:07/18/2023 11:30:00 AM Scheduled Provider:THIAGO LOPEZ DO Location:[facility] Appointment Type:PC OV Appointment Date:01/23/2024 08:40:00 AM Scheduled Provider:KARLA WHALEY Location:UROLOGY Appointment Type:URO OV Future Scheduled Tests Laboratory* Prostate Specific Antigen 24 * Prostate Specific Antigen 06/06/23 * Prostate Specific Antigen 01/22/23 * Vitamin B12 Level 06/06/23 * A1C Hemoglobin 06/06/23 * Lipid Profile 06/06/23 * Albumin/Creatinine Ratio, Random Urine 06/06/23 * Microalbumin Level Urine 10/11/22 Radiology* CT Coronary Calcium Score w/o Contrast 05/22/23 [facility] Evaluation + Plan note Future Appointments Appointment Date:07/18/2023 11:30:00 AM Scheduled Provider:THIAGO LOPEZ DO Location:[facility] Appointment Type:PC OV Appointment Date:07/28/2023 01:30:00 PM Scheduled Provider:THIAGO LOPEZ DO Location:[facility] Appointment Type:PC OV Appointment Date:09/11/2023 10:00:00 AM Scheduled Provider:KARLA WHALEY Location:UROLOGY Appointment Type:URO OV Appointment Date:01/23/2024 08:40:00 AM Scheduled Provider:KARLA WHALEY Location:UROLOGY Appointment Type:URO OV Future Scheduled Tests Laboratory* Prostate Specific Antigen 01/24/24 * Prostate Specific Antigen 06/06/23 * Prostate Specific Antigen 08/31/23 * Prostate Specific Antigen 01/22/23 * Vitamin B12 Level 06/06/23 * A1C Hemoglobin 06/06/23 * Lipid Profile 06/06/23 * Albumin/Creatinine Ratio, Random Urine 06/06/23 * Microalbumin Level Urine 10/11/22 Radiology* CT Coronary Calcium Score w/o Contrast 05/22/23 [facility] Evaluation + Plan note Future Appointments Appointment Date:07/28/2023 01:30:00 PM Scheduled Provider:THIAGO LOPEZ DO Location:[facility] Appointment Type:PC OV Appointment Date:09/11/2023 10:00:00 AM Scheduled Provider:KARLA WHALEY Location:UROLOGY Appointment Type:URO OV Appointment Date:01/23/2024 08:40:00 AM Scheduled Provider:KARLA WHALEY Location:UROLOGY Appointment Type:URO OV Future Scheduled Tests Laboratory* Albumin/Creatinine Ratio, Random Urine 06/06/23 * Microalbumin Level Urine 10/11/22 Radiology* CT Coronary Calcium Score w/o Contrast 05/22/23 [facility] Evaluation + Plan note Future Appointments Appointment Date:07/31/2023 09:20:00 AM Scheduled Provider:KARLA WHALEY Location:UROLOGY Appointment Type:URO OV Appointment Date:08/27/2023 12:30:00 PM Scheduled Provider:THIAGO LOPEZ DO Location:[facility] Appointment Type:PC OV Appointment Date:09/11/2023 10:00:00 AM Scheduled Provider:KARLA WHALEY Location:UROLOGY Appointment Type:URO OV Appointment Date:01/23/2024 08:40:00 AM Scheduled Provider:KARLA WHALEY Location:UROLOGY Appointment Type:URO OV Future Scheduled Tests Laboratory* Albumin/Creatinine Ratio, Random Urine 06/06/23 * Microalbumin Level Urine 10/11/22 Radiology* CT Coronary Calcium Score w/o Contrast 05/22/23 [facility] Evaluation + Plan note Future Appointments Appointment Date:08/27/2023 12:30:00 PM Scheduled Provider:THIAGO LOPEZ DO Location:[facility] Appointment Type:PC OV Appointment Date:09/11/2023 10:00:00 AM Scheduled Provider:KARLA WHALEY Location:UROLOGY Appointment Type:URO OV Appointment Date:01/23/2024 08:40:00 AM Scheduled Provider:KARLA WHALEY Location:UROLOGY Appointment Type:URO OV Future Scheduled Tests Laboratory* Albumin/Creatinine Ratio, Random Urine 06/06/23 * Microalbumin Level Urine 10/11/22 Radiology* CT Abd/Pelvis w/ IV Contrast Only 07/31/23 * CT Coronary Calcium Score w/o Contrast 05/22/23 [facility] Evaluation + Plan note Future Appointments Appointment Date:08/27/2023 12:30:00 PM Scheduled Provider:THIAGO LOPEZ DO Location:[facility] Appointment Type:PC OV Appointment Date:09/16/2023 08:20:00 AM Scheduled Provider:DARCY SPEARS MD Location:UROLOGY Appointment Type:URO Off Proc Cysto 20 min Appointment Date:01/23/2024 08:40:00 AM Scheduled Provider:KARLA WHALEY Location:UROLOGY Appointment Type:URO OV Future Scheduled Tests Laboratory* Albumin/Creatinine Ratio, Random Urine 06/06/23 * Microalbumin Level Urine 10/11/22 Radiology* CT Coronary Calcium Score w/o Contrast 05/22/23 [facility] Evaluation + Plan note Future Appointments Appointment Date:09/10/2023 02:30:00 PM Scheduled Provider:HTIAGO LOPEZ DO Location:[facility] Appointment Type:PC OV Appointment Date:09/16/2023 08:20:00 AM Scheduled Provider:DARCY SPEARS MD Location:UROLOGY Appointment Type:URO Off Proc Cysto 20 min Appointment Date:01/23/2024 08:40:00 AM Scheduled Provider:KARLA WHALEY Location:UROLOGY Appointment Type:URO OV Appointment Date:03/05/2024 11:15:00 AM Scheduled Provider: Location:[facility] Appointment Type:CV OV Diagnostic Tests Pending * Urine Culture 09/02/23 Future Scheduled Tests Laboratory* Urinalysis 09/01/23 * Lipid Profile 09/01/23 * HIV 1/2 Ab 08/28/23 * Albumin/Creatinine Ratio, Random Urine 06/06/23 * Microalbumin Level Urine 10/11/22 * Complete Metabolic Panel 09/01/23 Radiology* MRI Brain w/o Contrast 08/28/23 * CT Coronary Calcium Score w/o Contrast 05/22/23 [facility] Evaluation + Plan note Future Appointments Appointment Date:09/16/2023 08:20:00 AM Scheduled Provider:DARCY SPEARS MD Location:UROLOGY Appointment Type:URO Off Proc Cysto 20 min Appointment Date:09/23/2023 11:30:00 AM Scheduled Provider:THIAGO LOPEZ DO Location:[facility] Appointment Type:PC OV Appointment Date:11/18/2023 02:30:00 PM Scheduled Provider: Location:[facility] [place] Appointment Type:PM EMG/NCV 4 Extremity Appointment Date:01/23/2024 08:40:00 AM Scheduled Provider:KARLA WHALEY Location:UROLOGY Appointment Type:URO OV Appointment Date:03/05/2024 11:15:00 AM Scheduled Provider: Location:[facility] Appointment Type:CV OV Future Scheduled Tests Laboratory* Urinalysis 09/01/23 * Lipid Profile 09/01/23 * HIV 1/2 Ab 08/28/23 * Albumin/Creatinine Ratio, Random Urine 06/06/23 * Microalbumin Level Urine 10/11/22 * Complete Metabolic Panel 09/01/23 Radiology* MRI Brain w/ + w/o Contrast 09/15/23 * CT Coronary Calcium Score w/o Contrast 05/22/23 [facility] Evaluation + Plan note Future Appointments Appointment Date:09/23/2023 11:30:00 AM Scheduled Provider:THIAGO LOPEZ DO Location:[facility] Appointment Type:PC OV Appointment Date:11/18/2023 02:30:00 PM Scheduled Provider: Location:[facility] [place] Appointment Type:PM EMG/NCV 4 Extremity Appointment Date:01/23/2024 08:40:00 AM Scheduled Provider:KARLA WHALEY Location:UROLOGY Appointment Type:URO OV Appointment Date:03/05/2024 11:15:00 AM Scheduled Provider: Location:[facility] Appointment Type:CV OV Future Scheduled Tests Laboratory* Urinalysis 09/01/23 * Lipid Profile 09/01/23 * HIV 1/2 Ab 08/28/23 * Albumin/Creatinine Ratio, Random Urine 06/06/23 * Microalbumin Level Urine 10/11/22 * Complete Metabolic Panel 09/01/23 Radiology* MRI Brain w/ + w/o Contrast 09/15/23 * CT Coronary Calcium Score w/o Contrast 05/22/23 [facility] Evaluation + Plan note Future Appointments Appointment Date:09/23/2023 11:30:00 AM Scheduled Provider:THIAGO LOPEZ DO Location:[facility] Appointment Type:PC OV Appointment Date:11/18/2023 02:30:00 PM Scheduled Provider: Location:[facility] [place] Appointment Type:PM EMG/NCV 4 Extremity Appointment Date:01/23/2024 08:40:00 AM Scheduled Provider:KARLA WHALEY Location:UROLOGY Appointment Type:URO OV Appointment Date:03/05/2024 11:15:00 AM Scheduled Provider: Location:[facility] Appointment Type:CV OV Diagnostic Tests Pending * Urine Culture 09/19/23 Future Scheduled Tests Laboratory* Urinalysis 09/01/23 * Lipid Profile 09/01/23 * HIV 1/2 Ab 08/28/23 * Albumin/Creatinine Ratio, Random Urine 06/06/23 * Microalbumin Level Urine 10/11/22 * Complete Metabolic Panel 09/01/23 Radiology* MRI Brain w/ + w/o Contrast 09/15/23 * CT Coronary Calcium Score w/o Contrast 05/22/23 [facility] Evaluation + Plan note Future Appointments Appointment Date:12/19/2023 11:30:00 AM Scheduled Provider:THIAGO LOPEZ DO Location:[facility] Appointment Type:PC OV Appointment Date:01/05/2024 02:00:00 PM Scheduled Provider:KARLA WHALEY Location:UROLOGY Appointment Type:URO OV Appointment Date:03/05/2024 11:15:00 AM Scheduled Provider: Location:[facility] Appointment Type:CV OV Future Scheduled Tests Laboratory* Prostate Specific Antigen 11/14/23 * Prostate Specific Antigen 01/26/24 * Urinalysis Microscopic 12/16/23 * Urine Culture 12/16/23 * Complete Blood Count 11/14/23 * Complete Metabolic Panel 11/14/23 Radiology* MRI Brain w/ + w/o Contrast 09/15/23 * CT Coronary Calcium Score w/o Contrast 05/22/23 [facility] Evaluation + Plan note Future Appointments Appointment Date:01/05/2024 02:00:00 PM Scheduled Provider:KARLA WHALEY Location:UROLOGY Appointment Type:URO OV Appointment Date:03/05/2024 11:15:00 AM Scheduled Provider: Location:[facility] Appointment Type:CV OV Future Scheduled Tests Laboratory* Prostate Specific Antigen 11/14/23 * Prostate Specific Antigen 01/26/24 * Urinalysis Microscopic 12/16/23 * Complete Blood Count 11/14/23 * Complete Metabolic Panel 11/14/23 Radiology* MRI Brain w/ + w/o Contrast 09/15/23 * CT Coronary Calcium Score w/o Contrast 05/22/23 [facility] evaluation + Plan note Future Appointments Appointment Date:03/05/2024 11:15:00 AM Scheduled Provider: Location:[facility] Appointment Type:CV OV Appointment Date:01/05/2025 02:00:00 PM Scheduled Provider:KARLA WHALEY Location:UROLOGY Appointment Type:URO OV Future Scheduled Tests Laboratory* Prostate Specific Antigen 11/14/23 * Prostate Specific Antigen 2525 * Urinalysis Microscopic 12/16/23 * Complete Blood Count 11/14/23 * Complete Metabolic Panel 11/14/23 Radiology* MRI Brain w/ + w/o Contrast 09/15/23 * CT Coronary Calcium Score w/o Contrast 05/22/23 [facility] Evaluation + Plan note Future Appointments Appointment Date:09/03/2024 11:15:00 AM Scheduled Provider: Location:[facility] Appointment Type:CV OV Appointment Date:01/05/2025 02:00:00 PM Scheduled Provider:KARLA WHALEY Location:UROLOGY Appointment Type:URO OV Future Scheduled Tests Laboratory* Prostate Specific Antigen 11/14/23 * Prostate Specific Antigen 225 * Urinalysis Microscopic 12/16/23 * Complete Blood Count 11/14/23 * Lipid Profile 07/01/24 * Complete Metabolic Panel 11/14/23 Radiology* MRI Brain w/ + w/o Contrast 09/15/23 * CT Coronary Calcium Score w/o Contrast 05/22/23 [facility] Evaluation + Plan note Future Appointments Appointment Date:12/10/2024 09:00:00 AM Scheduled Provider:THIAGO LOPEZ DO Location:[facility] Appointment Type:PC Wellness Medicare Appointment Date:01/05/2025 02:00:00 PM Scheduled Provider:KARLA WHALEY Location:UROLOGY Appointment Type:URO OV Appointment Date:09/09/2025 11:00:00 AM Scheduled Provider:UMESH JONES Location:[facility] Appointment Type:CV OV Future Scheduled Tests Laboratory* Prostate Specific Antigen 225 * Urinalysis Microscopic 12/16/23 [facility] Evaluation + Plan note Future Appointments Appointment Date:01/05/2025 02:00:00 PM Scheduled Provider:KARLA WHALEY Location:UROLOGY Appointment Type:URO OV Appointment Date:09/09/2025 11:00:00 AM Scheduled Provider:UMESH JONES Location:[facility] Appointment Type:CV OV Future Scheduled Tests Laboratory* TSH with Reflex to FT4 12/10/25 * Complete Blood Count 12/10/25 * Lipid Profile 12/10/25 * Complete Metabolic Panel 12/10/25 Radiology* BD Bone Density DEXA Axial Skeleton Adult (21 yrs or older) 12/10/24 [facility] Evaluation + Plan note Future Appointments Appointment Date:01/19/2025 11:30:00 AM Scheduled Provider: Location:[facility] Appointment Type:BD Bone Density DEXA Axial Skeleton Appointment Date:09/09/2025 11:00:00 AM Scheduled Provider:UMESH JONES Location:[facility] Appointment Type:CV OV Appointment Date:01/05/2026 02:40:00 PM Scheduled Provider:KARLA WHALEY Location:UROLOGY Appointment Type:URO OV Future Scheduled Tests Laboratory* TSH with Reflex to FT4 12/10/25 * Prostate Specific Antigen 01/05/26 * Complete Blood Count 12/10/25 * Lipid Profile 12/10/25 * Complete Metabolic Panel 12/10/25 Radiology* BD Bone Density DEXA Axial Skeleton Adult (21 yrs or older) 01/19/25 [facility] Evaluation + Plan note Future Appointments Appointment Date:09/09/2025 11:00:00 AM Scheduled Provider:UMESH JONES Location:[facility] Appointment Type:CV OV Appointment Date:01/05/2026 02:40:00 PM Scheduled Provider:KARLA WHALEY Location:UROLOGY Appointment Type:URO OV Future Scheduled Tests Laboratory* TSH with Reflex to FT4 12/10/25 * Prostate Specific Antigen 01/05/26 * Complete Blood Count 12/10/25 * Lipid Profile 12/10/25 * Complete Metabolic Panel 12/10/25 [facility] Hospital course Narrative No data available for this section [facility] Hospital Discharge instructions No data available for this section [facility] Progress note No data available for this section [facility] Summary Purpose Family History No Family History Records Found Advance Directives No Advanced Directives Records FoundNo Advanced Directives Records FoundNo Advanced Directives Records FoundNo Advanced Directives Records FoundNo Advanced Directives Records Found Additional Source Comments Care Team (unrecognized sect ion and content) Care Team Personnel Name: THIAGO LOPEZ DO Position: P4 Physician - Primary Care Member Role: Primary Care Physician Address: Address: [address] [place] [address] Care Team Related Persons Name: ASK, ASK Name: RIVKA PERALES Care Team Personnel Name: THIAGO LOPEZ DO Position: P4 Physician - Primary Care Member Role: Primary Care Physician Address: Address: [address] [place] [address] Care Team Related Persons Name: ASK, ASK Name: RIVKA PERALES Patient Care team informatio n (unrecognized section and content) Care Team Personnel Name: THIAGO LOPEZ DO Position: P4 Physician - Primary Care Member Role: Primary Care Physician Address: Address: [address] [place] [address] Care Team Related Persons Name: RIVKA PERALES Care Team Personnel Name: THIAGO LOPEZ DO Position: P4 Physician - Primary Care Member Role: Primary Care Physician Address: Address: [address] [place] [address] Name: BLAKE COPE MD Position: ED Physician Member Role: ED Physician Address: Address: [facility] [address] [place], [place] [address] Care Team Related Persons Name: RIVKA PERALES Care Team Personnel Name: THIAGO LOPEZ DO Position: P4 Physician - Primary Care Member Role: Primary Care Physician Address: Address: [address] [place] [address] Name: MARIAH Case Position: AO RN Member Role: ED RN Name: Erika Castaneda RN Position: AO RN Member Role: ED RN Name: LAURA SOW DO Position: JESSICA ED Physician Address: Address: [address] [place] [address]- [place] Care Team Related Persons Name: KAYLI PERALESA Care Team Personnel Name: THIAGO LOPEZ DO Position: P4 Physician - Primary Care Member Role: Primary Care Physician Address: Address: [address] [place] [address]- [place] Care Team Related Persons Name: ANGELLA, RIVKA Care Team Personnel Name: THIAGO LOPEZ DO Position: P4 Physician - Primary Care Member Role: Primary Care Physician Address: Address: [address] [place] [address]- [place] Care Team Related Persons Name: KAYLI PERALESA Care Team Personnel Name: THIAGO LOPEZ DO Position: P4 Physician - Primary Care Member Role: Primary Care Physician Address: Address: [address] [place] [address]- [place] Care Team Related Persons Name: ANGELLA, RIVKA Care Team Personnel Name: THIAGO LOPEZ DO Position: P4 Physician - Primary Care Member Role: Primary Care Physician Address: Address: [address] [place] [address]- Care Team Related Persons Name: KAYLI PERALESA Care Team Personnel Name: THIAGO LOPEZ DO Position: P4 Physician - Primary Care Member Role: Primary Care Physician Address: Address: [address] [place] [address]- [place] Care Team Related Persons Name: ANGELLA, RIVKA Care Team Personnel Name: THIAGO LOPEZ DO Position: P4 Physician - Primary Care Member Role: Primary Care Physician Address: Address: [address] [place] [address]- Care Team Related Persons Name: ANGELLA, RIVKA Care Team Personnel Name: THIAGO LOPEZ DO Position: P4 Physician - Primary Care Member Role: Primary Care Physician Address: Address: [address] [place] [address], [place] [address]- Care Team Related Persons Name: ANGELLARIVKA Care Team Personnel Name: THIAGO LOPEZ DO Position: P4 Physician - Primary Care Member Role: Primary Care Physician Address: Address: [address] [place] [address]- Care Team Related Persons Name: PERALESRIVKA Care Team Personnel Name: THIAGO LOPEZ DO Position: P4 Physician - Primary Care Member Role: Primary Care Physician Address: Address: [address] [place] [address]- Care Team Related Persons Name: ANGELLARIVKA Care Team Personnel Name: THIAGO LOPEZ DO Position: P4 Physician - Primary Care Member Role: Primary Care Physician Address: Address: [address] [place] [address]- Care Team Related Persons Name: ANGELLARIVKA Care Team Personnel Name: THIAGO LOPEZ DO Position: P4 Physician - Primary Care Member Role: Primary Care Physician Address: Address: [address] [place] [address]- Care Team Related Persons Name: ANGELLARIVKA Care Team Personnel Name: THIAGO LOPEZ DO Position: P4 Physician - Primary Care Member Role: Primary Care Physician Address: Address: [address] [place] [address]- Care Team Related Persons Name: RIVKA PERALES Care Team Personnel Name: THIAGO LOPEZ DO Position: P4 Physician - Primary Care Member Role: Primary Care Physician Address: Address: [address] [place] [address]- Care Team Related Persons Name: RIVKA PERALES Care Team Personnel Name: THIAGO LOPEZ DO Position: P4 Physician - Primary Care Member Role: Primary Care Physician Address: [address] [place] [address]- Telecom: Care Team Related Persons Name: ANGELLARIVKA Care Team Personnel Name: THIAGO LOPEZ DO Position: P4 Physician - Primary Care Member Role: Primary Care Physician Address: [address] [place] [address] [place] [address]- [place] Telecom: Care Team Related Persons Name: RIVKA PERALES Care Team Personnel Name: THIAGO LOPEZ DO Position: P4 Physician - Primary Care Member Role: Primary Care Physician Address: [address] [place], [place] [address] Telecom: Care Team Related Persons Name: RIVKA PERALES Care Team Personnel Name: THIAGO LOPEZ DO Position: P4 Physician - Primary Care Member Role: Primary Care Physician Address: [address] [place] [address]- [place] Telecom: Care Team Related Persons Name: RIVKA PERALES (unrecognized sect ion and content) No Status Records FoundNo Status Records FoundNo Status Records FoundNo Status Records FoundNo Status Records Found INFORMATION SOURCE (unrecogn ized section and content) DATE CREATED AUTHOR 08/24/2023 [facility] DATE CREATED AUTHOR AUTHOR'S ORGANIZ ATION 07/03/2024 [facility] ([place]) DATE CREATED AUTHOR AUTHOR'S ORGANIZ ATION 01/23/2025 [facility] DATE CREATED AUTHOR AUTHOR'S ORGANIZ ATION 02/01/2025 [facility] DATE CREATED AUTHOR AUTHOR'S ORGANIZ ATION 04/19/2025 [facility] FOR RECORDS PERTAINING TO PATIENTS WHO ARE OR HAVE BEEN ENROLLED IN A CHEMICAL DEPENDENCY/SUBSTANCEABUSE PROGRAM, SOME INFORMATION MAY BE OMITTED. This clinical summary was aggregated from multiple sources. Caution should be exercised in using it in the provision of clinical care. This summary normalizes information from multiple sources, and as a consequence, information in this document may materially change the coding, format and clinical context of patient data. In addition, data may be omitted in some cases. CLINICAL DECISIONS SHOULD BE BASED ON THE PRIMARY CLINICAL RECORDS. [employer] [facility]. provides no warranty or guarantee of the accuracy or completeness of information in this document.
--- NOTE | 2025-05-30 07:02 | MRI_ITS ---
PROCEDURE: SPINE LUMBAR (ROUTINE) 05/30/2025 REASON FOR EXAM: CHRONIC PAIN TECHNIQUE: SPINE LUMBAR (ROUTINE) COMPARISON: March 17, 2025 FINDINGS: There is grade 1 retrolisthesis at L3-4, 0.3 cm. There is grade 1 spondylolisthesis at L4-5, 0.3 cm. The vertebral body height is maintained. There is Modic edema type endplate change from L3-5. Intervertebral disc signal shows desiccation. The facets are aligned. The L1-L2 level: There is mild central and right and left paracentral disk protrusion. There is no lateral recess stenosis or foraminal stenosis. There is no critical central canal stenosis. The L2-L3 level: There is moderate right and mild left paracentral disc and osteophyte protrusion. There is moderate right lateral recess effacement. There is mild bilateral foraminal narrowing secondary to disc and osteophyte protrusion. There is no critical central canal stenosis. The L3-L4 level: There is moderate central and right and left paracentral disc and osteophyte protrusion. There is mild right and left lateral recess stenosis. There is moderate bilateral foraminal narrowing secondary to disc and osteophyte protrusion. There is no critical central canal stenosis. The L4-L5 level: There is moderate central and right and left paracentral disc and osteophyte protrusion. There is moderate bilateral lateral recess stenosis. There is moderate bilateral foraminal narrowing secondary to disc and osteophyte protrusion. There is no critical central canal stenosis. The L5-S1 level: There is mild central moderate right and mild left paracentral disc and osteophyte protrusion. There is mild right lateral recess stenosis. There is moderate right and mild left foraminal narrowing secondary to disc protrusion and facet hypertrophy. There is no critical central canal stenosis. The visualized conus shows normal signal characteristics. Adjacent soft tissues are unremarkable. MRI/Spine Lumbar (Routine) IMPRESSION: There is grade 1 retrolisthesis at L3-4, 0.3 cm. There is grade 1 spondylolist hesis at L4-5, 0.3 cm. There is Modic edema type endplate change from L3-5, which can indicate recent injury or active inflammation. There is no central canal stenosis, with lateral recess and foraminal narrowing . Reading [facility]
== END | disposition home or self-care (01) ==
PROVIDERS: Referring Provider Orthopaedic Surgery Orthopaedic Surgery of the Spine; Visit Provider Orthopaedic Surgery Orthopaedic Surgery of the Spine
DX: M54.16 Radiculopathy, lumbar region (principal); M41.56 Other secondary scoliosis, lumbar region
CPT/HCPCS: 72148